=== PATIENT | female | born 2005 | race Caucasian/White ===

== ENCOUNTER 2023-12-24 09:47 | Outpatient (OUT) | payer OTHER, SELFPAY ==
[2023-12-24 10:13] LABS: Basophils Percent Auto 0.7 % (0.2-2.0); Eosinophils Absolute Auto 0.1 10^3/uL (0.0-0.7); Eosinophils Percent Auto 1.4 % (0.9-7.0); Hematocrit 39.9 % (36.0-48.0); Hemoglobin 13.9 g/dL (12.0-16.0); Immature Granulocytes Abs Auto 0.03 10^3/uL (0.00-0.03); Immature Granulocytes Pct Auto 0.5 % (0.0-0.5); Lymphocytes Absolute Auto 1.3 10^3/uL (1.2-3.8); Mean Corpuscular HGB Conc 34.8 g/dL (29.9-35.2); Mean Corpuscular Hemoglobin 30.9 pg (26.7-34.0); Mean Corpuscular Volume 88.7 fL (81.0-99.0); Mean Platelet Volume 10.8 fL (9.5-13.5); Monocytes Absolute Auto 0.7 10^3/uL (0.3-0.8); Monocytes Percent Auto 12.6 % (1.7-12.0); Neutrophils Absolute Auto 3.6 10^3/uL (1.4-6.5); Neutrophils Percent Auto 62.8 % (43.0-75.0); Platelet Count 270 10^3/uL (150-450); Red Cell Distribution Width 11.8 % (11.0-15.0); White Blood Count 5.7 10^3/uL (4.0-11.0)
[2023-12-24 10:38] LABS: Estimated Average Glucose 88 mg/dL; Glycohemoglobin A1C 4.7 % (4.5-6.2)
[2023-12-24 10:53] LABS: Alanine Aminotransferase 22 U/L (14-59); Albumin Globulin Ratio 1.2; Albumin Level 4.1 g/dL (3.4-5.0); Alkaline Phosphatase 102 U/L (46-116); Anion Gap 13.2; Aspartate Amino Transferase 13 U/L (15-37); BUN Creatinine Ratio 12.2; Bilirubin Total 0.5 mg/dL (0.2-1.0); Calcium 9.2 mg/dL (8.5-10.1); Carbon Dioxide 23.9 mmol/L (21.0-32.0); Chloride 103 mmol/L (98-107); Chol HDL Ratio 3.9; Cholesterol 215 mg/dL (104-227); Estimated GFR (African America >60 (>=60); Estimated GFR (Non-African Ame >60 (>=60); Free T3 3.38 pg/mL (2.91-4.70); Globulin 3.5 g/dL; Glucose 84 mg/dL (74-106); HDL Cholesterol 55 mg/dL (29-69); LDL Cholesterol Calculated 134.4 mg/dL; Potassium 4.1 mmol/L (3.5-5.1); Sodium 136 mmol/L (136-145); Thyroid Stimulating Hormone 0.976 uIU/mL (0.516-4.130); Total Protein 7.6 g/dL (6.4-8.2); Triglycerides 128 mg/dL (53-208); VLDL CHOLESTEROL 25.6 mg/dL
[2023-12-25 11:09] LABS: Insulin 17.7 uIU/mL (2.6-24.9)
== END 2023-12-24 09:48 | disposition home or self-care (01) ==
LOC: LAB 09:53
PROVIDERS: PCP Family Medicine; Visit Provider Family Medicine
DX: R06.83 Snoring (principal); R63.5 Abnormal weight gain; E78.5 Hyperlipidemia, unspecified; R53.83 Other fatigue; R73.09 Other abnormal glucose; I10 Essential (primary) hypertension; D64.9 Anemia, unspecified; E03.9 Hypothyroidism, unspecified
CPT/HCPCS: 36415; 80053; 80061; 83036; 83525; 83540; 84436; 84443; 84481; 85025

== ENCOUNTER 2024-04-12 12:00 | Outpatient (OUT) | payer OTHER, SELFPAY ==
--- OUTSIDE RECORDS SUMMARY | 2024-04-13 14:29 | XMS_ITS | CCD ---
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 IPID, T7, TSH, CMP #### [facility] [address] [place] [address] Dr. Charan Patten PROF 14(COMP METB)on 022 Albumin [Mass/Vol] 4.3 g/dL Normal 3.4-5.0 [facility] Comment on above: Performed By: #### L IPID, T7, TSH, CMP #### [facility] [address] [place] [address] Dr. Charan Patten Albumin/Globulin [Mass ratio] 1.1 {ratio} Normal [facility] Comment on above: Performed By: #### L IPID, T7, TSH, CMP #### [facility] [address] [place] [address] Dr. Charan Patten ALP [Catalytic activity/Vol] 74 U/L Normal 65-260 [facility] Comment on above: Performed By: #### L IPID, T7, TSH, CMP #### [facility] [address] [place] [address] Dr. Charan Patten ALT [Catalytic activity/Vol] 36 U/L Normal 14-59 [facility] Comment on above: Performed By: #### L IPID, T7, TSH, CMP #### [facility] [address] [place] [address] Dr. Charan Patten Anion gap [Moles/Vol] 11.9 mmol/L Normal Th e [facility] Comment on above: Performed By: #### L IPID, T7, TSH, CMP #### [facility] [address] [address] [address] Charan Patten AST [Catalytic activity/Vol] 21 U/L Normal 15-37 [facility] Comment on above: Performed By: #### L IPID, T7, TSH, CMP #### [facility] [address] [address] [address] Charan Patten Bilirubin [Mass/Vol] 0.2 mg/dL Normal 0.2-1.0 [facility] Comment on above: Performed By: #### L IPID, T7, TSH, CMP #### [facility] [address] [place] [address] Dr. Charan Patten Calcium [Mass/Vol] 9.0 mg/dL Normal 8.5-10.1 [facility] Comment on above: Performed By: #### L IPID, T7, TSH, CMP #### [facility] [address] [place] [address] Dr. Charan Patten Chloride [Moles/Vol] 104 mmol/L Normal 98-107 [facility] Comment on above: Performed By: #### L IPID, T7, TSH, CMP #### [facility] [address] [place] [address] Dr. Charan Patten CO2 [Moles/Vol] 25.7 mmol/L Normal 21.0-32.0 [facility] Comment on above: Performed By: #### L IPID, T7, TSH, CMP #### [facility] [address] [place] [address] Dr. Charan Patten Creatinine [Mass/Vol] 0.69 mg/dL Normal 0.55-1.02 [facility] Comment on above: Performed By: #### L IPID, T7, TSH, CMP #### [facility] [address] [place] [address] Dr. Charan Patten Globulin (S) [Mass/Vol] 3.8 g/dL Normal [facility] Comment on above: Performed By: #### L IPID, T7, TSH, CMP #### [facility] [address] [address] [address] Charan Patten Glucose [Mass/Vol] 87 mg/dL Normal 74-106 [facility] Comment on above: Performed By: #### L IPID, T7, TSH, CMP #### [facility] [address] [address] [address] Charan Patten Potassium [Moles/Vol] 4.5 mmol/L Normal 3.5-5.1 [facility] Comment on above: Performed By: #### L IPID, T7, TSH, CMP #### [facility] [address] [place] [address] Dr. Charan Patten Protein [Mass/Vol] 8.1 g/dL Normal 6.4-8.2 [facility] Comment on above: Performed By: #### L IPID, T7, TSH, CMP #### [facility] [address] [place] [address] Dr. Charan Patten Sodium [Moles/Vol] 137 mmol/L Normal 136-145 [facility] Comment on above: Performed By: #### L IPID, T7, TSH, CMP #### [facility] [address] [place] [address] Dr. Charan Patten Urea nitrogen [Mass/Vol] 11.0 mg/dL Normal 6.4-19.3 [facility] Comment on above: Performed By: #### L IPID, T7, TSH, CMP #### [facility] [address] [place] [address] Dr. Charan Patten Urea nitrogen/Creatinine [Mass ratio] 15.9 mg/mg Normal [facility] Comment on above: Performed By: #### L IPID, T7, TSH, CMP #### [facility] [address] [place] [address] Dr. Charan Patten TSHon 11-12-2021 TSH 1.581 uIU/mL Normal 0.516-4.130 [facility] Comment on above: Performed By: #### L IPID, T7, TSH, CMP #### [facility] [address] [address] [address] Charan Patten VITAMIN B12on 11-12-2021 Cobalamin (Vitamin B12) [Mass/Vol] 205.0 pg/mL Normal 193.0-986.0 [facility] Comment on above: Performed By: #### L IPID, T7, TSH, CMP #### [facility] [address] [address] [address] Charan Patten VITAMIN D 25 OHon 11-12-2021 VIT D 25-OH 16.5 ng/mL Normal [facility] Comment on above: Performed By: #### L IPID, T7, TSH, CMP #### [facility] [address] [address] [address] Charan Patten VIT D RANGES SEE BELOW Normal [facility] Comment on above: Result Comment: <20 ng/mL Vit D deficient 20 - <30 ng/mL Vit D insufficient 30 - 100 ng/mL Vit D sufficient >100 ng/mL Potential Toxicity Performed By: #### L IPID, T7, TSH, CMP #### [facility] [address] [address] [address] Charan Patten Vital Signs Date Time Vital Sign Value Performing Clinician Faci lity 03-22-2024 11:28-0500 Body temperature 98.4 [degF] Noel Dukes [employer] SUPERVISOR Work Phone: [facility] 03-22-2024 11:28-0500 Diastolic blood pressure 80 mm[Hg] Noel Dukes [employer] SUPERVISOR Work Phone: [facility] 03-22-2024 11:28-0500 Heart rate 110 /min Noel Dukes [employer] SUPER[employer]OR Work Phone: [facility] 03-22-2024 11:28-0500 SaO2% (BldA) [Mass fraction] 98 % Noel Dukes [employer] SUPER[employer]OR Work Phone: [facility] 03-22-2024 11:28-0500 Systolic blood pressure 127 mm[Hg] Noel Dukes [employer] SUPERVISOR Work Phone: [facility] 09-19-2024 14:51-0400 Body height 154.9 cm Vera Sharon RET[employer]NS SUPERVISOR Work Phone: [facility] 02-05-2024 14:51-0400 Body mass index (BMI) [Ratio] 28.34 kg/m2 Vera Sharon RET[employer]NS SUPERVISOR Work Phone: [facility] 02-05-2024 14:51-0400 Body temperature 98.29 [degF] Vera Sharon RETURNS SUPERVISOR Work Phone: [facility] 02-05-2024 14:51-0400 Body weight 68.04 kg Vera Sharon RETURNS SUPERVISOR Work Phone: [facility] 02-05-2024 14:51-0400 Diastolic blood pressure 78 mm[Hg] Vera Sharon RETURNS SUPERVISOR Work Phone: [facility] 02-05-2024 14:51-0400 Heart rate 86 /min Vera Sharon RETURNS SUPERVISOR Work Phone: [facility] 02-05-2024 14:51-0400 SaO2% (BldA) [Mass fraction] 97 % Vera Sharon [employer]NS SUPERVISOR Work Phone: [facility] 02-05-2024 14:51-0400 Systolic blood pressure 121 mm[Hg] Vera Lazarnton C FORENSIC ENGINEER Work Phone: [facility] 08-26-2023 16:20-0400 Body height 154.9 cm Sabina Cadillac C FORENSIC ENGINEER Work Phone: [facility] 08-26-2023 16:20-0400 Body mass index (BMI) [Ratio] 26.45 kg/m2 Sabina Cadillac RETURNS SUPERVISOR Work Phone: [facility] 08-26-2023 16:20-0400 Body temperature 97.59 [degF] Sabina Anh C FORENSIC ENGINEER Work Phone: [facility] 08-26-2023 16:20-0400 Body weight 63.5 kg Sabina Cadillac C FORENSIC ENGINEER Work Phone: [facility] 08-26-2023 16:20-0400 Diastolic blood pressure 85 mm[Hg] Sabina Anh RETURNS SUPERVISOR Work Phone: [facility] 08-26-2023 16:20-0400 Heart rate 112 /min Sabina Anh C FORENSIC ENGINEER Work Phone: [facility] 08-26-2023 16:20-0400 SaO2% (BldA) [Mass fraction] 97 % Sabina Anh RETURNS SUPERVISOR Work Phone: [facility] 08-26-2023 16:20-0400 Systolic blood pressure 126 mm[Hg] Sabina Bardayton rt RETURNS SUPERVISOR Work Phone: [facility] Encounters Encounter Date Encounter Type Care Provider Facility Start: 03-22-2024 End: 03-22-2024 ambulatory PROVIDER NOT IN SYSTEM [facility] Start: 03-22-2024 End: 03-22-2024 Office outpatient visit 15 minutes Noel Dukes RETURNS SUPERVISOR Work Phone: [facility] Comment on above: Acute pharyngitis, u nspecified etiology (Primary Dx); Sore throat Start: 02-05-2024 End: 02-05-2024 Office outpatient visit 15 minutes Vera Llamas RETURNS SUPERVISOR Work Phone: [facility] Comment on above: Wrist injury, right, initial encounter (Primary Dx) Start: 02-05-2024 End: 02-05-2024 ambulatory PROVIDER NOT IN SYSTEM [facility] Start: 12-17-2023 End: 12-17-2023 ambulatory JULIAN HILLMIS Not Available Start: 08-26-2023 End: 08-26-2023 Office outpatient new 20 minutes Sabina Kamara RETURNS SUPERVISOR Work Phone: [facility] Comment on above: Eustachian tube dysf unction, bilateral (Primary Dx) Start: 08-26-2023 End: 08-26-2023 ambulatory SABINA KAMARA [facility] Start: 05-07-2022 End: 05-08-[address] KALANI LOPEZ Facility:[facility] Start: 11-15-2021 Encounter for routin e child health examination without abnormal findings DR KALANI LOPEZ [facility] Start: 11-12-2021 End: 11-13-[address] KALANI LOPEZ Facility:[facility] Start: 11-12-2021 End: 11-13-2021 Encounter for routine child health examination without abnormal findings DR KALANI LOPEZ Facility:[facility] Procedures Date Procedure Procedure Detail Performing Clinician Start: 03-22-2024 Iaadiadoo streptococ cus group a Noel Dukes [facility] Work Phone: Plan of Treatment Date Care Activity Detail Author Start: 01-18-2024 COVID-19 Vaccine () COVID-19 Vaccine () [facility] Start: 01-18-2024 COVID-19 Vaccine ( season) COVID-19 Vaccine () [facility] Start: 01-18-2024 Influenza vaccination [facility] Start: 01-17-2023 COVID-19 Vaccine ( season) COVID-19 Vaccine ( season) [facility] Start: 12-29-2021 Hepatitis C screening Hepatitis C Screening [facility] Start: 12-29-2018 HIV screening HIV Screening [facility] Start: 12-29-2018 Vaccination for human papillomavirus HPV Vaccines (1 - 3-dose series) [facility] Start: 2015 Depression screening using PHQ-9 (Patient Health Questionnaire 9) score [facility] Start: 12-29-2006 History and physical examination, annual for health maintenance Wellness Visit [facility] Start: 2003 Screening for Chlamydia trachomatis Chlamydia Screening [facility] Start: 2003 Tetanus vaccination Tetanus: Every 10yrs [facility] XR Wrist - right 3 Views XR Wris t Right 3+ Views (Standard) Imaging [facility] Wrist injury, right, initial encounter 02/05/2024 3:27 PM EDT [facility] Work Phone: Payers Date Payer Category Payer Unknown [id number] 2003 Unknown [id number] 2003 Unknown [id number] 2003 Unknown [id number] 2003 Unknown [id number] 2003 Unknown [id number] 1969 Unknown [id number] 1959 Unknown [id number] Managed Care PPO (unspecified) [employer] PPO Member Subscriber Plan / Payer (Effective for All Dates) Name: Jaz Saleh Relation to Subscriber: Self Name: Jaz Saleh Payer ID: Not on file Group ID: Not on file Type: Not on file Address: [place] [id number] Unknown MMO [employer] S UPERMED PPO [id number] Effective for all dates [phone] [place], [place] [id number] Social History Date Type Detail Facility Start: 08-26-2023 Tobacco smoking status NHIS Never sm oked tobacco [facility] Start: 08-26-2023 Tobacco use and exposure Smokeless t obacco non-user [facility] Start: 08-26-2023 End: 03-22-2024 Alcohol intake Lifetime non-drinker (finding) [facility] Start: 2003 Sex Assigned At Not on file [facility] Start: 08-26-2023 End: 03-22-2024 Gender identity Not on file [facility] Start: 08-26-2023 End: 03-22-2024 History of Social function [facility] Start: 02-04-2024 Gender identity Identifies as female gender (finding) [facility] Start: 02-04-2024 Sexual orientation Heterosexual (fin jalil) [facility] Clinical Notes 08-26-2023 to 03-22-2024 Noel Dukes CNP - 03/22/2024 11:38 AM Vera Morrow CNP - 02/05/2024 3:36 PM EDTPatient Sabina Ball CNP - 08/26/2023 4:28 PM EDT Note Date & Type Note Facility 03-22-2024 Note PATIENT NAME: Jaz Saleh [facility] [address] [place] [id number] : 2005 DATE OF VISIT: 03/22/2024 SS#: [id number] PROVIDER: Noel Dukes CNP Chief Complaint Patient presents with Sore Throat Sore throat and fatigue, started on Friday (Apr 07). Today is the worst day so far. Pt stated their roommate recently had strep. Has taken dayquil. SUBJECTIVE 18 y.o. female presents Sore Throat (Sore throat and fatigue, started on Friday (Apr 07). Today is the worst day so far. Pt stated their roommate recently had strep. Has taken dayquil. ) Room mate has strep Lives off campus Sore Throat This is a new problem. The current episode started in the past 7 days. The problem has been gradually worsening. Neither side of throat is experiencing more pain than the other. There has been no fever. The pain is at a severity of 4/10. The pain is mild. Associated symptoms include congestion and trouble swallowing. Pertinent negatives include no abdominal pain, coughing, diarrhea, drooling, ear discharge, ear pain, headaches, hoarse voice, plugged ear sensation, neck pain, shortness of breath, stridor, swollen glands or vomiting. She has had exposure to strep. She has had no exposure to mono. MEDICAL ISSUES Past Medical History: Diagnosis Date Anxiety Depression There is no problem list on file for this patient. SOCIAL HISTORY Social History Socioeconomic History Marital status: Single Tobacco Use Smoking status: Never Smokeless tobacco: Never Vaping Use Vaping status: Never Used Substance and Sexual Activity Alcohol use: Never Drug use: Never FAMILY HISTORY Family History Problem Relation Age of Onset No Known Problems Mother No Known Problems Father REVIEW OF SYSTEMS Review of Systems Constitutional: Negative for chills, fatigue and fever. HENT: Positive for congestion, sore throat and trouble swallowing. Negative for drooling, ear discharge, ear pain, hoarse voice and sinus pain. Respiratory: Negative for cough, shortness of breath and stridor. Cardiovascular: Negative for chest pain and palpitations. Gastrointestinal: Negative for abdominal pain, constipation, diarrhea, nausea and vomiting. Musculoskeletal: Negative for arthralgias, myalgias and neck pain. Skin: Negative for rash. Neurological: Negative for dizziness and headaches. Psychiatric/Behavioral: Negative for confusion. MEDICATIONS PRIOR TO VISIT Current Outpatient Medications on File Prior to Visit Medication Sig Dispense Refill desvenlafaxine succinate (PRISTIQ) 50 MG 24 hr tablet Take 1 (one) tablet (50 mg total) by mouth daily . fluticasone propionate (FLONASE) 50 mcg/actuation nasal spray Instill 2 (two) sprays into each nostril daily . 16 g 12 desvenlafaxine succinate (PRISTIQ) 100 MG 24 hr tablet Take 1 (one) tablet (100 mg total) by mouth daily . (Patient not taking: Reported on 03/22/2024 .) No current facility-administered medications on file prior to visit. ALLERGIES/INTOLERANCES No Known Allergies OBJECTIVE BP 127/80 (BP Location: Left arm, Patient Position: Sitting, BP Cuff Size: Adult) Pulse (!) 110 Temp 98.4 degrees F (36.9 degrees C) (Oral) LMP 02/20/2024 (Approximate) SpO2 98% Physical Exam Vitals and nursing note reviewed. Constitutional: Appearance: She is well-developed. HENT: Head: Normocephalic and atraumatic. Right Ear: Tympanic membrane normal. Left Ear: A middle ear effusion is present. Nose: Congestion present. Mouth/Throat: Mouth: Mucous membranes are moist. Pharynx: Oropharynx is clear. Posterior oropharyngeal erythema and postnasal drip present. No pharyngeal swelling, oropharyngeal exudate or uvula swelling. Tonsils: No tonsillar exudate or tonsillar abscesses. 1+ on the right. 1+ on the left. Eyes: Conjunctiva/sclera: Conjunctivae normal. Pupils: Pupils are equal, round, and reactive to light. Cardiovascular: Rate and Rhythm: Regular rhythm. Tachycardia present. Pulses: Normal pulses. Heart sounds: Normal heart sounds. Pulmonary: Effort: Pulmonary effort is normal. Breath sounds: Normal breath sounds. Abdominal: General: Bowel sounds are normal. Palpations: Abdomen is soft. Musculoskeletal: General: Normal range of motion. Cervical back: Normal range of motion. Skin: General: Skin is warm. Capillary Refill: Capillary refill takes less than 2 seconds. Findings: No rash. Neurological: Mental Status: She is alert and oriented to person, place, and time. Psychiatric: Mood and Affect: Mood normal. PROCEDURE Procedures Results Recent Results (from the past week) POC Rapid Strep A Collection Time: 03/22/24 11:52 AM Result Value Ref Range Strep A Screen Negative Negative ASSESSMENT/PLAN (expressed as patient instructions): 1. Acute pharyngitis, unspecified etiology benzocaine-menthoL (Chloraseptic Max) 15-10 mg Lozg dextromethorphan-gua (more content not included)... [facility] 03-22-2024 History of Presen t illness Narrative PATIENT NAME: Jaz Saleh [facility] [address] [id number] : 2005 DATE OF VISIT: 03/22/2024 #: [id number] PROVIDER: Noel Dukes CNP Chief Complaint Patient presents with Sore Throat Sore throat and fatigue, started on Friday (Apr 07). Today is the worst day so far. Pt stated their roommate recently had strep. Has taken dayquil. SUBJECTIVE 18 y.o. female presents Sore Throat (Sore throat and fatigue, started on Friday (Apr 07). Today is the worst day so far. Pt stated their roommate recently had strep. Has taken dayquil. ) Room mate has strep Lives off campus Sore Throat This is a new problem. The current episode started in the past 7 days. The problem has been gradually worsening. Neither side of throat is experiencing more pain than the other. There has been no fever. The pain is at a severity of 4/10. The pain is mild. Associated symptoms include congestion and trouble swallowing. Pertinent negatives include no abdominal pain, coughing, diarrhea, drooling, ear discharge, ear pain, headaches, hoarse voice, plugged ear sensation, neck pain, shortness of breath, stridor, swollen glands or vomiting. She has had exposure to strep. She has had no exposure to mono. MEDICAL ISSUES Past Medical History: Diagnosis Date Anxiety Depression There is no problem list on file for this patient. SOCIAL HISTORY Social History Socioeconomic History Marital status: Single Tobacco Use Smoking status: Never Smokeless tobacco: Never Vaping Use Vaping status: Never Used Substance and Sexual Activity Alcohol use: Never Drug use: Never FAMILY HISTORY Family History Problem Relation Age of Onset No Known Problems Mother No Known Problems Father REVIEW OF SYSTEMS Review of Systems Constitutional: Negative for chills, fatigue and fever. HENT: Positive for congestion, sore throat and trouble swallowing. Negative for drooling, ear discharge, ear pain, hoarse voice and sinus pain. Respiratory: Negative for cough, shortness of breath and stridor. Cardiovascular: Negative for chest pain and palpitations. Gastrointestinal: Negative for abdominal pain, constipation, diarrhea, nausea and vomiting. Musculoskeletal: Negative for arthralgias, myalgias and neck pain. Skin: Negative for rash. Neurological: Negative for dizziness and headaches. Psychiatric/Behavioral: Negative for confusion. MEDICATIONS PRIOR TO VISIT Current Outpatient Medications on File Prior to Visit Medication Sig Dispense Refill desvenlafaxine succinate (PRISTIQ) 50 MG 24 hr tablet Take 1 (one) tablet (50 mg total) by mouth daily . fluticasone propionate (FLONASE) 50 mcg/actuation nasal spray Instill 2 (two) sprays into each nostril daily . 16 g 12 desvenlafaxine succinate (PRISTIQ) 100 MG 24 hr tablet Take 1 (one) tablet (100 mg total) by mouth daily . (Patient not taking: Reported on 03/22/2024 .) No current facility-administered medications on file prior to visit. ALLERGIES/INTOLERANCES No Known Allergies OBJECTIVE BP 127/80 (BP Location: Left arm, Patient Position: Sitting, BP Cuff Size: Adult) Pulse (!) 110 Temp 98.4 F (36.9 C) (Oral) LMP 02/20/2024 (Approximate) SpO2 98% Physical Exam Vitals and nursing note reviewed. Constitutional: Appearance: She is well-developed. HENT: Head: Normocephalic and atraumatic. Right Ear: Tympanic membrane normal. Left Ear: A middle ear effusion is present. Nose: Congestion present. Mouth/Throat: Mouth: Mucous membranes are moist. Pharynx: Oropharynx is clear. Posterior oropharyngeal erythema and postnasal drip present. No pharyngeal swelling, oropharyngeal exudate or uvula swelling. Tonsils: No tonsillar exudate or tonsillar abscesses. 1+ on the right. 1+ on the left. Eyes: Conjunctiva/sclera: Conjunctivae normal. Pupils: Pupils are equal, round, and reactive to light. Cardiovascular: Rate and Rhythm: Regular rhythm. Tachycardia present. Pulses: Normal pulses. Heart sounds: Normal heart sounds. Pulmonary: Effort: Pulmonary effort is normal. Breath sounds: Normal breath sounds. Abdominal: General: Bowel sounds are normal. Palpations: Abdomen is soft. Musculoskeletal: General: Normal range of motion. Cervical back: Normal range of motion. Skin: General: Skin is warm. Capillary Refill: Capillary refill takes less than 2 seconds. Findings: No rash. Neurological: Mental Status: She is alert and oriented to person, place, and time. Psychiatric: Mood and Affect: Mood normal. PROCEDURE Procedures Results Recent Results (from the past week) POC Rapid Strep A Collection Time: 03/22/24 11:52 AM Result Value Ref Range Strep A Screen Negative Negative ASSESSMENT/PLAN (expressed as patient instructions): 1. Acute pharyngitis, unspecified etiology benzocaine-menthoL (Chloraseptic Max) 15-10 mg Lozg dextromethorphan-guaiFENesin 60-1,200 mg per 12 hr tablet 2. Sore throat POC Rapid Strep A Return if symptoms worsen or fail to improve. MDM Section Declined flu/covid testing Negative strep Suspect PND as cause of ST Educated on warm salt water gargles, humidifier at bedside, warm fluids RTC criteria and red flag symptoms reviewed, voiced understanding ORDERS PLACED THIS VISIT Orders Placed This Encounter Procedures POC Rapid Strep A MEDICATION LIST AT END OF VISIT Current Outpatient Medications Medication Sig Dispense Refill desvenlafaxine succinate (PRISTIQ) 50 MG 24 hr tablet Take 1 (one) tablet (50 mg total) by mouth daily . fluticasone propionate (FLONASE) 50 mcg/actuation nasal spray Instill 2 (two) sprays into each nostril daily . 16 g 12 benzocaine-menthoL (Chloraseptic Max) 15-10 mg Lozg 1 lozenge by Mucous Membrane route 4 (four) times a day as needed . 28 lozenge 0 desvenlafaxine succinate (PRISTIQ) 100 MG 24 hr tablet Take 1 (one) tablet (100 mg total) by mouth daily . (Patient not taking: Reported on 03/22/2024 .) dextromethorphan-guaiFENesin 60-1,200 mg per 12 hr tablet Take 1 (one) tablet by mouth every 12 (twelve) hours for 10 days . 20 tablet 0 No current facility-administered medications for this visit. documented in this encounter [facility] 02-05-2024 Note Subjective: Patient ID: Jaz Saleh is a 18 y.o. female. Chief Complaint: Wrist Injury Pertinent negatives include no numbness. Past Medical History: Diagnosis Date Anxiety Depression History reviewed. No pertinent surgical history. Family History Problem Relation Age of Onset No Known Problems Mother No Known Problems Father Review of Systems Musculoskeletal: Positive for arthralgias. Skin: Negative for color change and wound. Neurological: Negative for numbness. Hematological: Does not bruise/bleed easily. Objective: BP 121/78 (BP Location: Right arm, Patient Position: Sitting, BP Cuff Size: Adult) Pulse 86 Temp 98.3 degrees F (36.8 degrees C) (Infrared) Ht 5' 1 Wt 68 kg (150 lb) SpO2 97% BMI 28.34 kg/m Physical Exam Vitals and nursing note reviewed. Constitutional: General: She is not in acute distress. Appearance: Normal appearance. She is not ill-appearing, toxic-appearing or diaphoretic. Cardiovascular: Rate and Rhythm: Normal rate. Pulses: Normal pulses. Musculoskeletal: General: No swelling, tenderness or signs of injury. Normal range of motion. Comments: C/o lateral wrist pain. Area is not sore to palpation Skin: Capillary Refill: Capillary refill takes less than 2 seconds. Findings: No bruising or wound. Neurological: General: No focal deficit present. Mental Status: She is alert. Assessment: Diagnoses and all orders for this visit: Wrist injury, right, initial encounter - XR Wrist Right 3+ Views (Standard); Future Plan: Preliminary xray results discussed with patient Patient declined need for prescription analgesic Patient will be called with final xray results within 24 hours. If xray confirms suspected fracture, patient will be referred to orthopedics. RICE supportive care discussed Patient has rigid brace on now Patient voiced understanding of plan with no questions. AUTHENTICATED BY VERA LLAMAS ON 02/05/2024 15:38:22 [facility] 02-05-2024 History of Presen t illness Narrative Subjective: Patient ID: Jaz Saleh is a 18 y.o. female. Chief Complaint: Wrist Injury Pertinent negatives include no numbness. Past Medical History: Diagnosis Date Anxiety Depression History reviewed. No pertinent surgical history. Family History Problem Relation Age of Onset No Known Problems Mother No Known Problems Father Review of Systems Musculoskeletal: Positive for arthralgias. Skin: Negative for color change and wound. Neurological: Negative for numbness. Hematological: Does not bruise/bleed easily. Objective: BP 121/78 (BP Location: Right arm, Patient Position: Sitting, BP Cuff Size: Adult) Pulse 86 Temp 98.3 F (36.8 C) (Infrared) Ht 5' 1 Wt 68 kg (150 lb) SpO2 97% BMI 28.34 kg/m Physical Exam Vitals and nursing note reviewed. Constitutional: General: She is not in acute distress. Appearance: Normal appearance. She is not ill-appearing, toxic-appearing or diaphoretic. Cardiovascular: Rate and Rhythm: Normal rate. Pulses: Normal pulses. Musculoskeletal: General: No swelling, tenderness or signs of injury. Normal range of motion. Comments: C/o lateral wrist pain. Area is not sore to palpation Skin: Capillary Refill: Capillary refill takes less than 2 seconds. Findings: No bruising or wound. Neurological: General: No focal deficit present. Mental Status: She is alert. Assessment: Diagnoses and all orders for this visit: Wrist injury, right, initial encounter - XR Wrist Right 3+ Views (Standard); Future Plan: Preliminary xray results discussed with patient Patient declined need for prescription analgesic Patient will be called with final xray results within 24 hours. If xray confirms suspected fracture, patient will be referred to orthopedics. RICE supportive care discussed Patient has rigid brace on now Patient voiced understanding of plan with no questions. documented in this encounter [facility] 02-05-2024 Instructions Vera Llamas CNP - 02/05/2024 3:30 PM EDT Images from the original note were not included. Preliminary xray interpretation shows no bone abnormalities. Likely sprain which can be sore for 4-6 weeks You will receive a final xray interpretation via [facility] within 24 hours If xray confirms broken bone, the orthopedics office will call you within 1-2 days to schedule a follow up visit. Rest: Don't use the injured body part for the next 3 days in order to protect it from further damage. Ice: Apply an ice pack a few times a day for 10 to 20 minutes at a time to reduce pain and swelling. Do this for the first two to three days. Place a towel or cloth between your skin and the ice pack to avoid damaging your skin with the ice. Spuz-foh-dwwpvjo medication: Take an anti-inflammatory medication like ibuprofen (Motrin, Advil, and Aleve) or a pain reliever like acetaminophen (Tylenol). Continue bracing during your day for the next week Over the counter biofreeze can be used to help with discomfort documented in this encounter [facility] 08-26-2023 History of Presen t illness Narrative PATIENT NAME: Jaz Saleh [facility] [address] [place] [id number] : 2005 DATE OF VISIT: 08/26/2023 #: [id number] PROVIDER: Sabina Kamara CNP Chief Complaint Patient presents with Ear Fullness Pt c/o hard of hearing in her left ear since 08/23. Notes it feels like a lot of pressure. SUBJECTIVE 17 y.o. female presents Ear Fullness (Pt c/o hard of hearing in her left ear since 08/23. Notes it feels like a lot of pressure.) Started Friday couldn't hear out of left ear No pain just pressure No previous ear probs Ear Fullness There is pain in the left ear. This is a new problem. The current episode started in the past 7 days. The problem occurs constantly. The problem has been gradually worsening. There has been no fever. The pain is at a severity of 0/10. The patient is experiencing no pain. Associated symptoms include hearing loss. Pertinent negatives include no abdominal pain, coughing, diarrhea, ear discharge, headaches, neck pain, rash, rhinorrhea, sore throat or vomiting. She has tried nothing for the symptoms. There is no history of a chronic ear infection or a tympanostomy tube. MEDICAL ISSUES Past Medical History: Diagnosis Date Anxiety Depression There is no problem list on file for this patient. SOCIAL HISTORY Social History Socioeconomic History Marital status: Single Tobacco Use Smoking status: Never Smokeless tobacco: Never Vaping Use Vaping Use: Never used Substance and Sexual Activity Alcohol use: Never Drug use: Never FAMILY HISTORY Family History Problem Relation Age of Onset No Known Problems Mother No Known Problems Father REVIEW OF SYSTEMS Review of Systems Constitutional: Negative for activity change, appetite change, chills, diaphoresis, fatigue and unexpected weight change. HENT: Positive for hearing loss. Negative for congestion, ear discharge, rhinorrhea and sore throat. Respiratory: Negative for cough. Gastrointestinal: Negative for abdominal pain, diarrhea, nausea and vomiting. Musculoskeletal: Negative for neck pain and neck stiffness. Skin: Negative for rash. Neurological: Negative for headaches. All other systems reviewed and are negative. MEDICATIONS PRIOR TO VISIT Current Outpatient Medications on File Prior to Visit Medication Sig Dispense Refill desvenlafaxine succinate (PRISTIQ) 100 MG 24 hr tablet Take 1 (one) tablet (100 mg total) by mouth daily . desvenlafaxine succinate (PRISTIQ) 50 MG 24 hr tablet Take 1 (one) tablet (50 mg total) by mouth daily . No current facility-administered medications on file prior to visit. ALLERGIES/INTOLERANCES No Known Allergies OBJECTIVE BP 126/85 (BP Location: Left arm, Patient Position: Sitting, BP Cuff Size: Adult) Pulse (!) 112 Temp 97.6 F (36.4 C) (Infrared) Ht 5' 1 Wt 63.5 kg (140 lb) LMP 08/20/2023 SpO2 97% BMI 26.45 kg/m Physical Exam Vitals and nursing note reviewed. Constitutional: General: She is not in acute distress. Appearance: Normal appearance. She is not ill-appearing or toxic-appearing. HENT: Head: Normocephalic and atraumatic. Right Ear: Hearing, ear canal and external ear normal. Tympanic membrane is bulging. Tympanic membrane has decreased mobility. Left Ear: Ear canal and external ear normal. Decreased hearing noted. Tympanic membrane is erythematous and bulging. Tympanic membrane has decreased mobility. Nose: Nose normal. Mouth/Throat: Mouth: Mucous membranes are moist. Eyes: General: No scleral icterus. Right eye: No discharge. Left eye: No discharge. Conjunctiva/sclera: Conjunctivae normal. Pupils: Pupils are equal, round, and reactive to light. Cardiovascular: Heart sounds: Normal heart sounds. Pulmonary: Effort: Pulmonary effort is normal. Breath sounds: Normal breath sounds. Musculoskeletal: Cervical back: Normal range of motion and neck supple. No rigidity or tenderness. Lymphadenopathy: Cervical: No cervical adenopathy. Skin: General: Skin is warm and dry. Neurological: General: No focal deficit present. Mental Status: She is alert and oriented to person, place, and time. Psychiatric: Mood and Affect: Mood normal. Behavior: Behavior normal. PROCEDURE Procedures Results No results found for this or any previous visit (from the past 168 hour(s)). ASSESSMENT/PLAN (expressed as patient instructions): 1. Eustachian tube dysfunction, bilateral Return if symptoms worsen or fail to improve. MDM Section ORDERS PLACED THIS VISIT No orders of the defined types were placed in this encounter. MEDICATION LIST AT END OF VISIT Current Outpatient Medications Medication Sig Dispense Refill desvenlafaxine succinate (PRISTIQ) 100 MG 24 hr tablet Take 1 (one) tablet (100 mg total) by mouth daily . amoxicillin (AMOXIL) 875 MG tablet Take 1 (one) tablet (875 mg total) by mouth 2 (two) times a day for 7 days . 14 tablet 0 desvenlafaxine succinate (PRISTIQ) 50 MG 24 hr tablet Take 1 (one) tablet (50 mg total) by mouth daily . fluticasone propionate (FLONASE) 50 mcg/actuation nasal spray Instill 2 (two) sprays into each nostril daily . 16 g 12 pseudoePHEDrine (SUDAFED) 120 mg 12 hr tablet Take 1 (one) tablet (120 mg total) by mouth every 12 (twelve) hours for 10 days . 20 tablet 0 No current facility-administered medications for this visit. documented in this encounter [facility] Evaluation note Diagnosis Eustachian [facility] dysfunction, bilateral- [facility] Wrist [facility], right, initial encounter- [facility] Diagnosis Acute pharyngitis, unspecified etiology- Primary Sore throat Acute ph[facility]itis [facility] Attachments The following attachments cannot be sent through Care Everywhere. * Eustachian Tube Problems (Hebrew) [facility]* Attachments The following attachments cannot be sent through Care Everywhere. * Sore Throat (Hebrew) [facility] Purpose Family History No Family History Records FoundNo Family History Records FoundNo Family History Records Found Advance Directives No Advanced Directives Records FoundNo Advanced Directives Records FoundNo Advanced Directives Records Found Additional Source Comments INFORMATION SOURCE (unrecogn ized section and content) DATE CREATED AUTHOR 05/15/[address] [facility] DATE CREATED AUTHOR AUTHOR'S ORGANIZ ATION 12/19/2023 [facility] EPIC DATE CREATED AUTHOR AUTHOR'S ORGANIZ ATION 03/23/2024 [facility] Reason for Visit (unrecogniz ed section and content) Reason Comments Ear Fullness Pt c/o hard of heari ng in her left ear since 08/23. Notes it feels like a lot of pressure. Reason Comments Wrist Injury Pt complains of righ t wrist injury about 2 weeks ago-fell off her scooter and when she fell it twisted. Notes she twisted it again yesterday. Notes she has been wearing brace in between the falls and currently wearing it. Has used ice. Able to move it but with excess movement the pain comes back-describes pain as when you hit your funny bone Reason Comments Sore Throat Sore throat and fati yenifer, started on Friday (Apr 07). Today is the worst day so far. Pt stated their roommate recently had strep. Has taken dayquil. Care Teams (unrecognized sec tion and content) Inside Sales Supervisor Relationship Specialty Start Date End Date System, Provider Not In PCP - General 08/26/23 Inside Sales Supervisor Relationship Specialty Start Date End Date System, Provider Not In PCP - General 08/26/23 FOR RECORDS PERTAINING TO PATIENTS WHO ARE OR HAVE BEEN ENROLLED IN A CHEMICAL DEPENDENCY/SUBSTANCEABUSE PROGRAM, SOME INFORMATION MAY BE OMITTED. This clinical summary was aggregated from multiple sources. Caution should be exercised in using it in the provision of clinical care. This summary normalizes information from multiple sources, and as a consequence, information in this document may materially change the coding, format and clinical context of patient data. In addition, data may be omitted in some cases. CLINICAL DECISIONS SHOULD BE BASED ON THE PRIMARY CLINICAL RECORDS. [email or web address] provides no warranty or guarantee of the accuracy or completeness of information in this document.
== END 2024-04-12 12:01 | disposition home or self-care (01) ==
LOC: SLEEP 04-13 14:04
PROVIDERS: PCP Family Medicine; Visit Provider Family Medicine
DX: G47.33 Obstructive sleep apnea (adult) (pediatric) (principal)
CPT/HCPCS: 95806

== ENCOUNTER 2024-04-17 09:48 | Outpatient (OUT) | payer OTHER, SELFPAY ==
--- NOTE | 2024-04-17 09:50 | US_ITS ---
[address] [address] Patient Name: FRANK ARMSTRONG MRN: [id number] date: 2005 Sex: F Assigned Patient Location: Current Patient Location: Accession/Order Number: [id number] Exam Date: 04/17/2024 10:00 Report Date: 04/18/2024 06:21 At the request of: KALANI LOPEZ Procedure: US pelvis EXAMINATION: US pelvis HISTORY: Dysfunctional uterine bleeding N93.8 COMPARISON: No relevant comparison available. TECHNIQUE: Transabdominal and/or transvaginal sonographic examination was performed as indicated by examination type. FINDINGS: UTERUS: Normal size and appearance. Uterus size: 6.9 x 4.4 x 2.6 cm ENDOMETRIUM: Normal homogeneous appearance. Endometrial thickness: 8 mm RIGHT OVARY: Not seen. LEFT OVARY: Normal size and appearance. Duplex Doppler demonstrates normal waveform and flow; resistive index 0.6. Ovary size: 2.5 x 1.7 x 1.8 cm CUL-DE-SAC: Unremarkable. No significant free fluid. BLADDER: Unremarkable. OTHER: None. US/US pelvis IMPRESSION: 1. No abnormal or suspicious findings. 2. Right ovary could not be identified. No suspicious adnexal findings. Electronically authenticated by: MAGALI ARNDT Date: 04/18/2024 06:21
--- OUTSIDE RECORDS SUMMARY | 2024-04-17 09:51 | XMS_ITS | CCD ---
Author Organization [facility] Care Team Providers Care Set Illustrator Name Role Phone JOHN, DR URIARTE Admitting [...] extended release oral tablet (1 source) Uncompetitive G-agyvem-D-aspartate Receptor Antagonist, Sigma-1 Agonist Start: 03-22-2024 End: [...] Interpretation and review of laboratory results Normal [facility] S. pyogenes Ag Ql (Throat) Negative Negative [facility] XR WRIST RIGHT 3+ VIEWS (STA NDARD)on [...] noted. IMPRESSION: No acute osseous abnormality noted. SKS/Diffon Workstation ID: [id number] Dictated by: ABELINO ZABALA on FriFeb 05, 2024 5:13:59 PM EDT Transcribed by: BRANDI STATON on FriFeb 05, 2024 5:23:34 PM EDT Finalized by: ABELINO ZABALA on FriFeb 06, 2024 6:30:36 AM EDT [facility] Comment on above: Order Comment: [...] 05-08-2022 Insulin 13.7 uIU/mL Normal 2.6-24.9 [facility] Comment on above: Performed By: #### I NSULIN #### [facility] [address] [place] [address] Dr. Charan Patten CBC AUTO DIFFon 05-07-2022 BASO # 0.0 103/ul Normal 0.0-0.1 [facility] Comment on above: Performed By: #### C BC #### [facility] [address] [place] [address] Dr. Charan Patten Basophils/100 WBC (Bld) 0.7 % Normal 0.2-2.0 [facility] Comment on above: Performed By: #### C BC #### [facility] [address] [place] [address] Dr. Charan Patten EO # 0.1 103/ul Normal 0.0-0.7 [facility] Comment on above: Performed By: #### C BC #### [facility] [address] [place] [address] Dr. Charan Patten Eosinophils/100 WBC (Bld) 1.7 % Normal 0.9-7.0 [facility] Comment on above: Performed By: #### C BC #### [facility] [address] [place] [address] Dr. Charan Patten Erythrocyte distribution width (RBC) [Ratio] 13.1 % Normal 11.0-15.0 [facility] Comment on above: Performed By: #### C BC #### [facility] [address] [place] [address] Dr. Charan Patten Hematocrit (Bld) [Volume fraction] 39.7 % Normal 36.0-48.0 [facility] Comment on above: Performed By: #### C BC #### [facility] [address] [place] [address] Dr. Charan Patten Hemoglobin (Bld) [Mass/Vol] 13.3 g/dL Normal 12.0-16.0 [facility] Comment on above: Performed By: #### C BC #### [facility] [address] [place] [address] Dr. Charan Patten IG # 0.02 10e3/ul Normal 0.00-0.03 [facility] Comment on above: Performed By: #### C BC #### [facility] [address] [place] [address] Dr. Charan Patten IG % 0.3 % Normal 0.0-0.5 [facility] Comment on above: Performed By: #### C BC #### [facility] [address] [place] [address] Dr. Charan Patten LYMPH # 1.8 103/ul Normal 1.2-3.8 [facility] Comment on above: Performed By: #### C BC #### [facility] [address] [place] [address] Dr. Charan Patten Lymphocytes/100 WBC (Bld) 30.0 % Normal 20.5-60.0 [facility] Comment on above: Performed By: #### C BC #### [facility] [address] [place] [address] Dr. Charan Patten MANUAL DIFF REQ NO Normal [facility] Comment on above: Performed By: #### C BC #### [facility] [address] [place] [address] Dr. Charan Patten MCH (RBC) [Entitic mass] 29.2 pg Normal 26.7-34.0 [facility] Comment on above: Performed By: #### C BC #### [facility] [address] [place] [address] Dr. Charan Patten MCHC (RBC) [Mass/Vol] 33.5 g/dL Normal 29.9-35.2 [facility] Comment on above: Performed By: #### C BC #### [facility] [address] [place] [address] Dr. Charan Patten MCV (RBC) [Entitic vol] 87.1 fL Normal 81.0-99.0 [facility] Comment on above: Performed By: #### C BC #### [facility] [address] [place] [address] Dr. Charan Patten MONO # 0.6 103/ul Normal 0.3-0.8 [facility] Comment on above: Performed By: #### C BC #### [facility] [address] [place] [address] Dr. Charan Patten Monocytes/100 WBC (Bld) 9.8 % Normal 1.7-12.0 [facility] Comment on above: Performed By: #### C BC #### [facility] [address] [place] [address] Dr. Charan Patten NEUT # 3.4 103/ul Normal 1.4-6.5 [facility] Comment on above: Performed By: #### C BC #### [facility] [address] [place] [address] Dr. Charan Patten Neutrophils/100 WBC (Bld) 57.5 % Normal 43.0-75.0 [facility] Comment on above: Performed By: #### C BC #### [facility] [address] [place] [address] Dr. Charan Patten Platelet mean volume (Bld) [Entitic vol] 10.4 fL Normal 9.5-13.5 [facility] Comment on above: Performed By: #### C BC #### [facility] [address] [place] [address] Dr. Charan Patten PLT 268 103/ul Normal 150-450 [facility] Comment on above: Performed By: #### C BC #### [facility] [address] [place] [address] Dr. Charan Patten RBC 4.56 106/ul Normal 4.20-5.40 [facility] Comment on above: Performed By: #### C BC #### [facility] [address] [place] [address] Dr. Charan Patten WBC 5.9 103/ul Normal 4.0-11.0 [facility] Comment on above: Performed By: #### C BC #### [facility] [address] [place] [address] Dr. Charan Patten FREE THYROXINE INDEX T7on FTI 2.11 Normal 1.30-4.50 [facility] Comment on above: Performed By: #### L IPID, T7, TSH, CMP #### [facility] [address] [place] [address] Dr. Charan Patten T3U 32.0 % Normal 30.0-39.0 [facility] Comment on above: Performed By: #### L IPID, T7, TSH, CMP #### [facility] [address] [address] [address] Charan Patten T4 [Mass/Vol] 6.60 ug/dL Normal 5.40-10.60 [facility] Comment on above: Performed By: #### L IPID, T7, TSH, CMP #### [facility] [address] [address] [address] Charan Patten GLYCOHEMOGLOBIN A1Con 2021 ADA RECOMMENDATION SEE BELOW Normal [facility] Comment on above: Result Comment: ADA RECOMMENDED LIMIT 4.0 - 6.0 ADA THERAPEUTIC TARGET < 7.0 ACTION SUGGESTED > 7.0 Performed By: #### A 1C #### [facility] [address] [place] [address] Dr. Charan Patten Glucose [Mass/Vol] 94 mg/dL Normal [facility] Comment on above: Performed By: #### A 1C #### [facility] [address] [place] [address] Dr. Charan Patten HbA1c (Bld) [Mass fraction] 4.9 % Normal 4.5-6.2 [facility] Comment on above: Performed By: #### A 1C #### [facility] [address] [place] [address] Dr. Charan Patten IRONon 05-07-2022 Iron [Mass/Vol] 140.0 ug/dL Normal 50.0-170.0 [facility] Comment on above: Performed By: #### L IPID, T7, TSH, CMP #### [facility] [address] [place] [address] Dr. Charan Patten LIPID PROFILEon 05-07-2022 CHOL-HDL RATIO NORM SEE BELOW Normal [facility] Comment on above: Result Comment: 3.3 - 4.4 LOW RISK 4.4 - 7.1 AVERAGE RISK 7.1 - 11.0 MODERATE RISK >11.0 HIGH RISK Performed By: #### L IPID, T7, TSH, CMP #### [facility] [address] [place] [address] Dr. Charan Patten Cholesterol [Mass/Vol] 176 mg/dL Normal 104-227 [facility] Comment on above: Performed By: #### L IPID, T7, TSH, CMP #### [facility] [address] [address] [address] Charan Patten Cholesterol in HDL [Mass/Vol] 70 mg/dL Critically high 29-69 [facility] Comment on above: Performed By: #### L IPID, T7, TSH, CMP #### [facility] [address] [address] [address] Charan Patten Cholesterol in LDL [Mass/Vol] 88.2 mg/dL Normal 46.0-140.0 [facility] Comment on above: Performed By: #### L IPID, T7, TSH, CMP #### [facility] [address] [address] [address] Charan Patten Cholesterol.total/Cho lesterol in HDL [Mass ratio] 2.5 {ratio} Normal [facility] Comment on above: Performed By: #### L IPID, T7, TSH, CMP #### [facility] [address] [address] [address] Charan Patten HDL NORMAL > or = 60 mg/dl - LOW CARDIOVASCULAR RISK <40 mg/dl - HIGH CARDIOVASCULAR RISK Normal [facility] Comment on above: Performed By: #### L IPID, T7, TSH, CMP #### [facility] [address] [address] [address] Charan Patten LDL CALC NORMAL SEE BELOW Normal [facility] Comment on above: Result Comment: <100 mg/dl OPTIMAL 100 - 129 mg/dl NEAR OR ABOVE OPTIMAL 130 - 159 mg/dl BORDERLINE HIGH 160 - 189 mg/dl HIGH >190 mg/dl VERY HIGH Performed By: #### L IPID, T7, TSH, CMP #### [facility] [address] [address] [address] Charan Patten Triglyceride [Mass/Vol] 89 mg/dL Normal 53-208 [facility] Comment on above: Performed By: #### L IPID, T7, TSH, CMP #### [facility] [address] [address] [address] Charan Patten VLDL CALC 17.8 mg/dL Normal [facility] Comment on above: Performed By: #### L IPID, T7, TSH, CMP #### [facility] [address] [address] [address] Charan Patten OCC BLD IMMUNO SCREENon 04-19 OCCULT BLOOD Negative Normal NEGATIVE [facility] Comment on above: Performed By: #### O BSCRN #### [facility] [address] [address] [address] Charan Patten PROF 14(COMP METB)on 022 Albumin [Mass/Vol] 4.5 g/dL Normal 3.4-5.0 [facility] Comment on above: Performed By: #### L IPID, T7, TSH, CMP #### [facility] [address] [place] [address] Dr. Charan Patten Albumin/Globulin [Mass ratio] 1.3 {ratio} Normal [facility] Comment on above: Performed By: #### L IPID, T7, TSH, CMP #### [facility] [address] [address] [address] Charan Patten ALP [Catalytic activity/Vol] 74 U/L Normal 46-116 [facility] Comment on above: Performed By: #### L IPID, T7, TSH, CMP #### [facility] [address] [address] [address] Charan Patten ALT [Catalytic activity/Vol] 39 U/L Normal 14-59 [facility] Comment on above: Performed By: #### L IPID, T7, TSH, CMP #### [facility] [address] [address] [address] Charan Patten Anion gap [Moles/Vol] 14.4 mmol/L Normal [facility] Comment on above: Performed By: #### L IPID, T7, TSH, CMP #### [facility] [address] [address] [address] Charan Patten AST [Catalytic activity/Vol] 30 U/L Normal 15-37 [facility] Comment on above: Performed By: #### L IPID, T7, TSH, CMP #### [facility] [address] [address] [address] Charan Patten Bilirubin [Mass/Vol] 0.5 mg/dL Normal 0.2-1.0 [facility] Comment on above: Performed By: #### L IPID, T7, TSH, CMP #### [facility] [address] [place] [address] Dr. Charan Patten Calcium [Mass/Vol] 9.1 mg/dL Normal 8.5-10.1 [facility] Comment on above: Performed By: #### L IPID, T7, TSH, CMP #### [facility] [address] [place] [address] Dr. Charan Patten Chloride [Moles/Vol] 102 mmol/L Normal 98-107 [facility] Comment on above: Performed By: #### L IPID, T7, TSH, CMP #### [facility] [address] [place] [address] Dr. Charan Patten CO2 [Moles/Vol] 23.8 mmol/L Normal 21.0-32.0 [facility] Comment on above: Performed By: #### L IPID, T7, TSH, CMP #### [facility] [address] [place] [address] Dr. Charan Patten Creatinine [Mass/Vol] 0.73 mg/dL Normal 0.55-1.02 [facility] Comment on above: Performed By: #### L IPID, T7, TSH, CMP #### [facility] [address] [place] [address] Dr. Charan Patten EGFR-AF BRITISH >60 Normal >=60 [facility] Comment on above: Performed By: #### L IPID, T7, TSH, CMP #### [facility] [address] [place] [address] Dr. Charan Patten EGFR-NON AF BRITISH >60 Normal >=60 [facility] Comment on above: Performed By: #### L IPID, T7, TSH, CMP #### [facility] [address] [address] [address] Charan Patten Globulin (S) [Mass/Vol] 3.4 g/dL Normal [facility] Comment on above: Performed By: #### L IPID, T7, TSH, CMP #### [facility] [address] [address] [address] Charan Patten Glucose [Mass/Vol] 90 mg/dL Normal 74-106 [facility] Comment on above: Performed By: #### L IPID, T7, TSH, CMP #### [facility] [address] [address] [address] Charan Patten Potassium [Moles/Vol] 4.2 mmol/L Normal 3.5-5.1 [facility] Comment on above: Performed By: #### L IPID, T7, TSH, CMP #### [facility] [address] [place] [address] Dr. Charan Patten Protein [Mass/Vol] 7.9 g/dL Normal 6.4-8.2 [facility] Comment on above: Performed By: #### L IPID, T7, TSH, CMP #### [facility] [address] [address] [address] Charan Patten Sodium [Moles/Vol] 136 mmol/L Normal 136-145 [facility] Comment on above: Performed By: #### L IPID, T7, TSH, CMP #### [facility] [address] [address] [address] Charan Patten Urea nitrogen [Mass/Vol] 10.0 mg/dL Normal 6.4-19.3 [facility] Comment on above: Performed By: #### L IPID, T7, TSH, CMP #### [facility] [address] [place] [address] Dr. Charan Patten Urea nitrogen/Creatinine [Mass ratio] 13.7 mg/mg Normal [facility] Comment on above: Performed By: #### L IPID, T7, TSH, CMP #### [facility] [address] [address] [address] Charan Patten TSHon 05-07-2022 TSH 1.580 uIU/mL Normal 0.516-4.130 [facility] Comment on above: Performed By: #### L IPID, T7, TSH, CMP #### [facility] [address] [place] [address] Dr. Charan Patten VITAMIN D 25 OHon 05-07-2022 VIT D 25-OH 14.3 ng/mL Normal [facility] Comment on above: Performed By: #### L IPID, T7, TSH, CMP #### [facility] [address] [place] [address] Dr. Charan Patten VIT D RANGES SEE BELOW Normal [facility] Comment on above: Result Comment: <20 ng/mL Vit D deficient 20 - <30 ng/mL Vit D insufficient 30 - 100 ng/mL Vit D sufficient >100 ng/mL Potential Toxicity Performed By: #### L IPID, T7, TSH, CMP #### [facility] [address] [place] [address] Dr. Charan Patten INSULINon 11-13-2021 Insulin 35.5 uIU/mL Critically high 2.6-24.9 [facility] Comment on above: Performed By: #### L IPID, T7, TSH, CMP #### [facility] [address] [place] [address] Dr. Charan Patten CBC AUTO DIFFon 11-12-2021 BASO # 0.1 103/ul Normal 0.0-0.1 [facility] Comment on above: Performed By: #### C BC #### [facility] [address] [place] [address] Dr. Charan Patten Basophils/100 WBC (Bld) 0.9 % Normal 0.2-2.0 [facility] Comment on above: Performed By: #### C BC #### [facility] [address] [place] [address] Dr. Charan Patten EO # 0.0 103/ul Normal 0.0-0.7 [facility] Comment on above: Performed By: #### C BC #### [facility] [address] [place] [address] Dr. Charan Patten Eosinophils/100 WBC (Bld) 0.4 % Critically low 0.9-7.0 [facility] Comment on above: Performed By: #### C BC #### [facility] [address] [place] [address] Dr. Charan Patten Erythrocyte distribution width (RBC) [Ratio] 14.8 % Normal 11.0-15.0 [facility] Comment on above: Performed By: #### C BC #### [facility] [address] [place] [address] Dr. Charan Patten Hematocrit (Bld) [Volume fraction] 39.1 % Normal 36.0-48.0 [facility] Comment on above: Performed By: #### C BC #### [facility] [address] [place] [address] Dr. Charan Patten Hemoglobin (Bld) [Mass/Vol] 12.6 g/dL Normal 12.0-16.0 [facility] Comment on above: Performed By: #### C BC #### [facility] [address] [place] [address] Dr. Charan Patten IG # 0.08 10e3/ul Critically high 0.00-0.[address] [facility] Comment on above: Performed By: #### C BC #### [facility] [address] [place] [address] Dr. Charan Patten IG % 1.5 % Critically high 0.0-0.5 [facility] Comment on above: Performed By: #### C BC #### [facility] [address] [place] [address] Dr. Charan Patten LYMPH # 1.3 103/ul Normal 1.2-3.8 [facility] Comment on above: Performed By: #### C BC #### [facility] [address] [place] [address] Dr. Charan Patten Lymphocytes/100 WBC (Bld) 25.1 % Normal 20.5-60.0 [facility] Comment on above: Performed By: #### C BC #### [facility] [address] [place] [address] Dr. Charan Patten MANUAL DIFF REQ NO Normal [facility] Comment on above: Performed By: #### C BC #### [facility] [address] [place] [address] Dr. Charan Patten MCH (RBC) [Entitic mass] 26.8 pg Normal 26.7-34.0 [facility] Comment on above: Performed By: #### C BC #### [facility] [address] [place] [address] Dr. Charan Patten MCHC (RBC) [Mass/Vol] 32.2 g/dL Normal 29.9-35.2 [facility] Comment on above: Performed By: #### C BC #### [facility] [address] [place] [address] Dr. Charan Patten MCV (RBC) [Entitic vol] 83.2 fL Normal 79.1-95.6 [facility] Comment on above: Performed By: #### C BC #### [facility] [address] [place] [address] Dr. Charan Patten MONO # 0.6 103/ul Normal 0.3-0.8 [facility] Comment on above: Performed By: #### C BC #### [facility] [address] [place] [address] Dr. Charan Patten Monocytes/100 WBC (Bld) 10.9 % Normal 1.7-12.0 [facility] Comment on above: Performed By: #### C BC #### [facility] [address] [place] [address] Dr. Charan Patten NEUT # 3.2 103/ul Normal 1.4-6.5 [facility] Comment on above: Performed By: #### C BC #### [facility] [address] [place] [address] Dr. Charan Patten Neutrophils/100 WBC (Bld) 61.2 % Normal 43.0-75.0 [facility] Comment on above: Performed By: #### C BC #### [facility] [address] [place] [address] Dr. Charan Patten Platelet mean volume (Bld) [Entitic vol] 10.7 fL Normal 9.5-13.5 [facility] Comment on above: Performed By: #### C BC #### [facility] [address] [place] [address] Dr. Charan Patten PLT 297 103/ul Normal 150-450 [facility] Comment on above: Performed By: #### C BC #### [facility] [address] [place] [address] Dr. Charan Patten RBC 4.70 106/ul Normal 3.40-5.30 [facility] Comment on above: Performed By: #### C BC #### [facility] [address] [place] [address] Dr. Charan Patten WBC 5.3 103/ul Normal 4.0-11.0 [facility] Comment on above: Performed By: #### C BC #### [facility] [address] [place] [address] Dr. Charan Patten FREE THYROXINE INDEX T7on FTI 2.37 Normal 1.30-4.50 [facility] Comment on above: Performed By: #### L IPID, T7, TSH, CMP #### [facility] [address] [place] [address] Dr. Charan Patten T3U 30.0 % Normal 30.0-39.0 [facility] Comment on above: Performed By: #### L IPID, T7, TSH, CMP #### [facility] [address] [place] [address] Dr. Charan Patten T4 [Mass/Vol] 7.90 ug/dL Normal 5.40-10.60 [facility] Comment on above: Performed By: #### L IPID, T7, TSH, CMP #### [facility] [address] [place] [address] Dr. Charan Patten GLYCOHEMOGLOBIN A1Con 2021 ADA RECOMMENDATION SEE BELOW Normal [facility] Comment on above: Result Comment: ADA RECOMMENDED LIMIT 4.0 - 6.0 ADA THERAPEUTIC TARGET < 7.0 ACTION SUGGESTED > 7.0 Performed By: #### A 1C #### [facility] [address] [place] [address] Dr. Charan Patten Glucose [Mass/Vol] 105 mg/dL Normal [facility] Comment on above: Performed By: #### A 1C #### [facility] [address] [place] [address] Dr. Charan Patten HbA1c (Bld) [Mass fraction] 5.3 % Normal 4.5-6.2 [facility] Comment on above: Performed By: #### A 1C #### [facility] [address] [place] [address] Dr. Charan Patten IRONon 11-12-2021 Iron [Mass/Vol] 44.0 ug/dL Critically low 50.0-170.0 [facility] Comment on above: Performed By: #### L IPID, T7, TSH, CMP #### [facility] [address] [place] [address] Dr. Charan Patten PROF 14(COMP METB)on 022 Albumin [Mass/Vol] 4.3 g/dL Normal 3.4-5.0 [facility] Comment on above: Performed By: #### L IPID, T7, TSH, CMP #### [facility] [address] [place] [address] Dr. Charan Patten Albumin/Globulin [Mass ratio] 1.1 {ratio} Normal [facility] Comment on above: Performed By: #### L IPID, T7, TSH, CMP #### [facility] [address] [place] [address] Dr. Charan Patten ALP [Catalytic activity/Vol] 74 U/L Normal 65-260 [facility] Comment on above: Performed By: #### L IPID, T7, TSH, CMP #### [facility] [address] [place] [address] Dr. Charan Patten ALT [Catalytic activity/Vol] 36 U/L Normal 14-59 [facility] Comment on above: Performed By: #### L IPID, T7, TSH, CMP #### [facility] [address] [place] [address] Dr. Charan Patten Anion gap [Moles/Vol] 11.9 mmol/L Normal [facility] Comment on above: Performed By: #### L IPID, T7, TSH, CMP #### [facility] [address] [address] [address] Charan Patten AST [Catalytic activity/Vol] 21 U/L Normal 15-37 [facility] Comment on above: Performed By: #### L IPID, T7, TSH, CMP #### [facility] [address] [address] [address] Charan Patten Bilirubin [Mass/Vol] 0.2 mg/dL Normal 0.2-1.0 [facility] Comment on above: Performed By: #### L IPID, T7, TSH, CMP #### [facility] [address] [place] [address] Dr. Charan Patten Calcium [Mass/Vol] 9.0 mg/dL Normal 8.5-10.1 [facility] Comment on above: Performed By: #### L IPID, T7, TSH, CMP #### [facility] [address] [place] [address] Dr. Charan Patten Chloride [Moles/Vol] 104 mmol/L Normal 98-107 [facility] Comment on above: Performed By: #### L IPID, T7, TSH, CMP #### [facility] [address] [place] [address] Dr. Charan Patten CO2 [Moles/Vol] 25.7 mmol/L Normal 21.0-32.0 [facility] Comment on above: Performed By: #### L IPID, T7, TSH, CMP #### [facility] [address] [place] [address] Dr. Charan Patten Creatinine [Mass/Vol] 0.69 mg/dL Normal 0.55-1.02 [facility] Comment on above: Performed By: #### L IPID, T7, TSH, CMP #### [facility] [address] [place] [address] Dr. Charan Patten Globulin (S) [Mass/Vol] 3.8 g/dL Normal [facility] Comment on above: Performed By: #### L IPID, T7, TSH, CMP #### [facility] [address] [address] [address] Charan Patten Glucose [Mass/Vol] 87 mg/dL Normal 74-106 [facility] Comment on above: Performed By: #### L IPID, T7, TSH, CMP #### [facility] [address] [address] [address] Charan Patten Potassium [Moles/Vol] 4.5 mmol/L Normal 3.5-5.1 [facility] Comment on above: Performed By: #### L IPID, T7, TSH, CMP #### [facility] [address] [place] [address] Dr. Charan Patten Protein [Mass/Vol] 8.1 g/dL Normal 6.4-8.2 [facility] Comment on above: Performed By: #### L IPID, T7, TSH, CMP #### [facility] [address] [place] [address] Dr. Charan Patten Sodium [Moles/Vol] 137 mmol/L Normal 136-145 [facility] Comment on above: Performed By: #### L IPID, T7, TSH, CMP #### [facility] [address] [place] [address] Dr. Charan Patten Urea nitrogen [Mass/Vol] 11.0 mg/dL Normal 6.4-19.3 [facility] Comment on above: Performed By: #### L IPID, T7, TSH, CMP #### [facility] [address] [place] [address] Dr. Charan Patten Urea nitrogen/Creatinine [Mass ratio] 15.9 mg/mg Normal [facility] Comment on above: Performed By: #### L IPID, T7, TSH, CMP #### [facility] [address] [place] [address] Dr. Charan Patten TSHon 11-12-2021 TSH 1.581 uIU/mL Normal 0.516-4.130 [facility] Comment on above: Performed By: #### L IPID, T7, TSH, CMP #### [facility] [address] [address] [address] Charan Patten VITAMIN B12on 11-12-2021 Cobalamin (Vitamin B12) [Mass/Vol] 205.0 pg/mL Normal 193.0-986.0 [facility] Comment on above: Performed By: #### L IPID, T7, TSH, CMP #### [facility] [address] [address] [address] Charan Patten VITAMIN D 25 OHon 11-12-2021 VIT D 25-OH 16.5 ng/mL Normal [facility] Comment on above: Performed By: #### L IPID, T7, TSH, CMP #### [facility] [address] [address] [address] Charan Patten VIT D RANGES SEE BELOW Normal [facility] Comment on above: Result Comment: <20 ng/mL Vit D deficient 20 - <30 ng/mL Vit D insufficient 30 - 100 ng/mL Vit D sufficient >100 ng/mL Potential Toxicity Performed By: #### L IPID, T7, TSH, CMP #### [facility] [address] [address] [address] Charan Patten Vital Signs Date Time Vital Sign Value Performing Clinician Faci lity 03-22-2024 11:28-0500 Body temperature 98.4 [degF] Noel Dukes DIRECTOR OF PHYSICAL EDUCATION Work Phone: [facility] 03-22-2024 11:28-0500 Diastolic blood pressure 80 mm[Hg] Noel Dukes DIRECTOR OF PHYSICAL EDUCATION Work Phone: [facility] 03-22-2024 11:28-0500 Heart rate 110 /min Noel Dukes DIRECTOR OF PHYSICAL EDUCATION Work Phone: [facility] 03-22-2024 11:28-0500 SaO2% (BldA) [Mass fraction] 98 % Noel Dukes DIRECTOR OF PHYSICAL EDUCATION Work Phone: [facility] 03-22-2024 11:28-0500 Systolic blood pressure 127 mm[Hg] Noel Dukes DIRECTOR OF PHYSICAL EDUCATION Work Phone: [facility] 09-19-2024 14:51-0400 Body height 154.9 cm Vera [place] DIRECTOR OF PHYSICAL EDUCATION Work Phone: [facility] 02-05-2024 14:51-0400 Body mass index (BMI) [Ratio] 28.34 kg/m2 Vera [place] DIRECTOR OF PHYSICAL EDUCATION Work Phone: [facility] 02-05-2024 14:51-0400 Body temperature 98.29 [degF] Vera [place] DIRECTOR OF PHYSICAL EDUCATION Work Phone: [facility] 02-05-2024 14:51-0400 Body weight 68.04 kg Vera [place] DIRECTOR OF PHYSICAL EDUCATION Work Phone: [facility] 02-05-2024 14:51-0400 Diastolic blood pressure 78 mm[Hg] Vera [place] DIRECTOR OF PHYSICAL EDUCATION Work Phone: [facility] 02-05-2024 14:51-0400 Heart rate 86 /min Vera [place] DIRECTOR OF PHYSICAL EDUCATION Work Phone: [facility] 02-05-2024 14:51-0400 SaO2% (BldA) [Mass fraction] 97 % Vera [place] DIRECTOR OF PHYSICAL EDUCATION Work Phone: [facility] 02-05-2024 14:51-0400 Systolic blood pressure 121 mm[Hg] Vera [place] C FINANCIAL ANALYST INTERN Work Phone: [facility] 08-26-2023 16:20-0400 Body height 154.9 cm Sabina [place] C FINANCIAL ANALYST INTERN Work Phone: [facility] 08-26-2023 16:20-0400 Body mass index (BMI) [Ratio] 26.45 kg/m2 Sabina [place] DIRECTOR OF PHYSICAL EDUCATION Work Phone: [facility] 08-26-2023 16:20-0400 Body temperature 97.59 [degF] Sabina Anh C FINANCIAL ANALYST INTERN Work Phone: [facility] 08-26-2023 16:20-0400 Body weight 63.5 kg Sabina [place] C FINANCIAL ANALYST INTERN Work Phone: [facility] 08-26-2023 16:20-0400 Diastolic blood pressure 85 mm[Hg] Sabina Anh DIRECTOR OF PHYSICAL EDUCATION Work Phone: [facility] 08-26-2023 16:20-0400 Heart rate 112 /min Sabina Anh C FINANCIAL ANALYST INTERN Work Phone: [facility] 08-26-2023 16:20-0400 SaO2% (BldA) [Mass fraction] 97 % Sabina Anh DIRECTOR OF PHYSICAL EDUCATION Work Phone: [facility] 08-26-2023 16:20-0400 Systolic blood pressure 126 mm[Hg] Sabina [place] rt DIRECTOR OF PHYSICAL EDUCATION Work Phone: [facility] Encounters Encounter Date Encounter Type Care Provider Facility Start: 03-22-2024 End: 03-22-2024 ambulatory PROVIDER NOT IN SYSTEM [facility] Start: 03-22-2024 End: 03-22-2024 Office outpatient visit 15 minutes Noel Dukes DIRECTOR OF PHYSICAL EDUCATION Work Phone: [facility] Comment on above: Acute pharyngitis, u nspecified etiology (Primary Dx); Sore throat Start: 02-05-2024 End: 02-05-2024 Office outpatient visit 15 minutes Vera Llamas DIRECTOR OF PHYSICAL EDUCATION Work Phone: [facility] Comment on above: Wrist injury, right, initial encounter (Primary Dx) Start: 02-05-2024 End: 02-05-2024 ambulatory PROVIDER NOT IN SYSTEM [facility] Start: 12-17-2023 End: 12-17-2023 ambulatory JULIAN HILLMIS Not Available Start: 08-26-2023 End: 08-26-2023 Office outpatient new 20 minutes Sabina Kamara DIRECTOR OF PHYSICAL EDUCATION Work Phone: [facility] Comment on above: Eustachian tube dysf unction, bilateral (Primary Dx) Start: 08-26-2023 End: 08-26-2023 ambulatory SABINA KAMARA [facility] Start: 05-07-2022 End: 05-08-2022 ambulatory [...] Iaadiadoo streptococ cus group a Noel Dukes [facility] Work Phone: Plan of Treatment Date Care Activity Detail Author Start: 01-18-2024 COVID-19 Vaccine () COVID-19 Vaccine () [facility] Start: 01-18-2024 COVID-19 Vaccine ( season) COVID-19 Vaccine () [facility] Start: 01-18-2024 Influenza vaccination [facility] Start: 01-17-2023 COVID-19 Vaccine ( season) COVID-19 Vaccine ( season) [facility] Start: 12-29-2021 Hepatitis C screening Hepatitis C Screening [facility] Start: 12-29-2018 HIV screening HIV Screening [facility] Start: 12-29-2018 Vaccination for human papillomavirus HPV Vaccines (1 - 3-dose series) [facility] Start: 2015 Depression screening using PHQ-9 (Patient Health Questionnaire 9) score [facility] Start: 12-29-2006 History and physical examination, annual for health maintenance Wellness Visit [facility] Start: 2003 Screening for Chlamydia trachomatis Chlamydia Screening [facility] Start: 2003 Tetanus vaccination Tetanus: Every 10yrs [facility] XR Wrist - right 3 Views XR Wris t Right 3+ Views (Standard) Imaging [facility] Wrist injury, right, initial encounter 02/05/2024 3:27 PM EDT [facility] Work Phone: Payers Date Payer Category Payer Unknown [id number] 2003 Unknown [id number] 2003 Unknown [id number] 2003 Unknown [id number] 2003 Unknown [id number] 2003 Unknown [id number] 1969 Unknown [id number] 1959 Unknown [id number] Managed Care PPO (unspecified) [employer] PPO Member Subscriber Plan / Payer (Effective for All Dates) Name: Jaz Saleh Relation to Subscriber: Self Name: Jaz Saleh Payer ID: Not on file Group ID: Not on file Type: Not on file Address: [address] [id number] Unknown MMO [employer] S UPERMED PPO [id number] Effective for all dates [phone] [place], [place] [id number] Social History Date Type Detail Facility Start: 08-26-2023 Tobacco smoking status NHIS Never sm oked tobacco [facility] Start: 08-26-2023 Tobacco use and exposure Smokeless t obacco non-user [facility] Start: 08-26-2023 End: 03-22-2024 Alcohol intake Lifetime non-drinker (finding) [facility] Start: 2005 Sex Assigned At Not on file [facility] Start: 08-26-2023 End: 03-22-2024 Gender identity Not on file [facility] Start: 08-26-2023 End: 03-22-2024 History of Social function [facility] Start: 02-04-2024 Gender identity Identifies as female gender (finding) [facility] Start: 02-04-2024 Sexual orientation Heterosexual (fin jalil) [facility] Clinical Notes 08-26-2023 to 03-22-2024 Noel Dukes CNP - 03/22/2024 11:38 AM Vera Morrow CNP - 02/05/2024 3:36 PM EDTPatient Sabina Ball CNP - 08/26/2023 4:28 PM EDT Note Date & Type Note Facility 03-22-2024 Note PATIENT NAME: Jaz Saleh [facility] [address] [place] [id number] : 2005 DATE OF VISIT: 03/22/2024 SS#: [...] mg Lozg dextromethorphan-gua (more content not included)... [facility] 03-22-2024 History of Presen t illness Narrative PATIENT NAME: Jaz Saleh [facility] [address] [id number] : 2005 DATE OF VISIT: 03/22/2024 #: [...] for this visit. documented in this encounter [facility] 02-05-2024 Note Subjective: Patient ID: Jaz Saleh [...] AUTHENTICATED BY VERA LLAMAS ON 02/05/2024 15:38:22 [facility] 02-05-2024 History of Presen t [...] with no questions. documented in this encounter [facility] 02-05-2024 Instructions Vera Llamas CNP - 02/05/2024 3:30 PM EDT Images from the original note were not included. Preliminary xray interpretation shows no bone abnormalities. Likely sprain which can be sore for 4-6 weeks You will receive a final xray interpretation via [employer] within 24 hours If xray confirms broken [...] avoid damaging your skin with the ice. Ngqo-nzo-ilnccgu medication: Take an anti-inflammatory medication like ibuprofen (Motrin, Advil, and Aleve) or a pain reliever like acetaminophen (Tylenol). Continue bracing during your day for the next week Over the counter biofreeze can be used to help with discomfort documented in this encounter [facility] 08-26-2023 History of Presen t illness Narrative PATIENT NAME: Jaz Saleh [facility] [address] [place] [id number] : 2005 DATE OF VISIT: 08/26/2023 #: [...] for this visit. documented in this encounter [facility] Evaluation note Diagnosis Eustachian tube dysfunction, bilateral- [facility], right, initial encounter- [facility] Diagnosis Acute pharyngitis, unspecified etiology- Primary Sore throat Acute ph[facility]itis [facility] Attachments The following attachments cannot be sent through Care Everywhere. * Eustachian Tube Problems ([place]azakh) [facility]* Attachments The following attachments cannot be sent through Care Everywhere. * Sore Throat ([place]az[place]) [facility] Purpose Family History No Family History Records FoundNo Family History Records FoundNo Family History Records Found Advance Directives No Advanced Directives Records FoundNo Advanced Directives Records FoundNo Advanced Directives Records Found Additional Source Comments INFORMATION SOURCE (unrecogn ized section and content) DATE CREATED AUTHOR 05/15/2022 [facility] DATE CREATED AUTHOR AUTHOR'S ORGANIZ ATION 12/19/2023 [facility] EPIC DATE CREATED AUTHOR AUTHOR'S ORGANIZ ATION 03/23/2024 [facility] Reason for Visit (unrecogniz ed section and [...] Care Teams (unrecognized sec tion and content) Set Illustrator Relationship Specialty Start Date End Date System, Provider Not In PCP - General 08/26/23 Set Illustrator Relationship Specialty Start Date End Date System, [...] BE BASED ON THE PRIMARY CLINICAL RECORDS. [employer] provides no warranty or guarantee of the accuracy or completeness of information in this document.
== END 2024-04-17 09:49 | disposition home or self-care (01) ==
LOC: US 09:49
PROVIDERS: PCP Family Medicine; Visit Provider Family Medicine
DX: N93.8 Other specified abnormal uterine and vaginal bleeding (principal)
CPT/HCPCS: 76856

== ENCOUNTER 2024-05-05 20:04 | Outpatient (OUT) | payer OTHER, SELFPAY ==
--- OUTSIDE RECORDS SUMMARY | 2024-05-05 20:06 | XMS_ITS | CCD ---
Author Organization [facility] Care Team Providers Care Electrician Supervisor Airplane Name Role Phone JOHN, DR URIARTE Admitting [...] extended release oral tablet (1 source) Uncompetitive P-bgdhps-W-aspartate Receptor Antagonist, Sigma-1 Agonist Start: 03-22-2024 End: [...] Interpretation and review of laboratory results Normal [facility] S. pyogenes Ag Ql (Throat) Negative Negative [facility] XR WRIST RIGHT 3+ VIEWS (STA NDARD)on [...] noted. IMPRESSION: No acute osseous abnormality noted. [employer]KS[employer] Workstation ID: [id number] Dictated by: ABELINO ZABALA on FriFeb 05, 2024 5:13:59 PM EDT Transcribed by: BRANDI STATON on FriFeb 05, 2024 5:23:34 PM EDT Finalized by: ABELINO ZABALA on FriFeb 06, 2024 6:30:36 AM EDT [facility] Comment on above: Order [...] 05-08-2022 Insulin 13.7 uIU/mL Normal 2.6-24.9 [facility] Comment on above: Performed By: #### I NSULIN #### [facility] [address] [place] [address] Dr. Charan Patten CBC AUTO DIFFon 05-07-2022 BASO # 0.0 103/ul Normal 0.0-0.1 [facility] Comment on above: Performed By: #### C BC #### [facility] [address] [place] [address] Dr. Charan Patten Basophils/100 WBC (Bld) 0.7 % Normal 0.2-2.0 [facility] Comment on above: Performed By: #### C BC #### [facility] [address] [place] [address] Dr. Charan Patten EO # 0.1 103/ul Normal 0.0-0.7 [facility] Comment on above: Performed By: #### C BC #### [facility] [address] [place] [address] Dr. Charan Patten Eosinophils/100 WBC (Bld) 1.7 % Normal 0.9-7.0 [facility] Comment on above: Performed By: #### C BC #### [facility] [address] [place] [address] Dr. Charan Patten Erythrocyte distribution width (RBC) [Ratio] 13.1 % Normal 11.0-15.0 [facility] Comment on above: Performed By: #### C BC #### [facility] [address] [place] [address] Dr. Charan Patten Hematocrit (Bld) [Volume fraction] 39.7 % Normal 36.0-48.0 [facility] Comment on above: Performed By: #### C BC #### [facility] [address] [place] [address] Dr. Charan Patten Hemoglobin (Bld) [Mass/Vol] 13.3 g/dL Normal 12.0-16.0 [facility] Comment on above: Performed By: #### C BC #### [facility] [address] [place] [address] Dr. Charan Patten IG # 0.02 10e3/ul Normal 0.00-0.03 [facility] Comment on above: Performed By: #### C BC #### [facility] [address] [place] [address] Dr. Charan Patten IG % 0.3 % Normal 0.0-0.5 [facility] Comment on above: Performed By: #### C BC #### [facility] [address] [place] [address] Dr. Charan Patten LYMPH # 1.8 103/ul Normal 1.2-3.8 [facility] Comment on above: Performed By: #### C BC #### [facility] [address] [place] [address] Dr. Charan Patten Lymphocytes/100 WBC (Bld) 30.0 % Normal 20.5-60.0 [facility] Comment on above: Performed By: #### C BC #### [facility] [address] [place] [address] Dr. Charan Patten MANUAL DIFF REQ NO Normal [facility] Comment on above: Performed By: #### C BC #### [facility] [address] [place] [address] Dr. Charan Patten MCH (RBC) [Entitic mass] 29.2 pg Normal 26.7-34.0 [facility] Comment on above: Performed By: #### C BC #### [facility] [address] [place] [address] Dr. Charan Patten MCHC (RBC) [Mass/Vol] 33.5 g/dL Normal 29.9-35.2 [facility] Comment on above: Performed By: #### C BC #### [facility] [address] [place] [address] Dr. Charan Patten MCV (RBC) [Entitic vol] 87.1 fL Normal 81.0-99.0 [facility] Comment on above: Performed By: #### C BC #### [facility] [address] [place] [address] Dr. Charan Patten MONO # 0.6 103/ul Normal 0.3-0.8 [facility] Comment on above: Performed By: #### C BC #### [facility] [address] [place] [address] Dr. Charan Patten Monocytes/100 WBC (Bld) 9.8 % Normal 1.7-12.0 [facility] Comment on above: Performed By: #### C BC #### [facility] [address] [place] [address] Dr. Charan Patten NEUT # 3.4 103/ul Normal 1.4-6.5 [facility] Comment on above: Performed By: #### C BC #### [facility] [address] [place] [address] Dr. Charan Patten Neutrophils/100 WBC (Bld) 57.5 % Normal 43.0-75.0 [facility] Comment on above: Performed By: #### C BC #### [facility] [address] [place] [address] Dr. Charan Patten Platelet mean volume (Bld) [Entitic vol] 10.4 fL Normal 9.5-13.5 [facility] Comment on above: Performed By: #### C BC #### [facility] [address] [place] [address] Dr. Charan Patten PLT 268 103/ul Normal 150-450 [facility] Comment on above: Performed By: #### C BC #### [facility] [address] [place] [address] Dr. Charan Patten RBC 4.56 106/ul Normal 4.20-5.40 [facility] Comment on above: Performed By: #### C BC #### [facility] [address] [place] [address] Dr. Charan Patten WBC 5.9 103/ul Normal 4.0-11.0 [facility] Comment on above: Performed By: #### C BC #### [facility] [address] [place] [address] Dr. Charan Patten FREE THYROXINE INDEX T7on FTI 2.11 Normal 1.30-4.50 [facility] Comment on above: Performed By: #### L IPID, T7, TSH, CMP #### [facility] [address] [place] [address] Dr. Charan Patten T3U 32.0 % Normal 30.0-39.0 [facility] Comment on above: Performed By: #### L IPID, T7, TSH, CMP #### [facility] [address] [address] [address] Charan Patten T4 [Mass/Vol] 6.60 ug/dL Normal 5.40-10.60 [facility] Comment on above: Performed By: #### L IPID, T7, TSH, CMP #### [facility] [address] [address] [address] Charan Patten GLYCOHEMOGLOBIN A1Con 2021 ADA RECOMMENDATION SEE BELOW Normal [facility] Comment on above: Result Comment: ADA RECOMMENDED LIMIT 4.0 - 6.0 ADA THERAPEUTIC TARGET < 7.0 ACTION SUGGESTED > 7.0 Performed By: #### A 1C #### [facility] [address] [place] [address] Dr. Charan Patten Glucose [Mass/Vol] 94 mg/dL Normal [facility] Comment on above: Performed By: #### A 1C #### [facility] [address] [place] [address] Dr. Charan Patten HbA1c (Bld) [Mass fraction] 4.9 % Normal 4.5-6.2 [facility] Comment on above: Performed By: #### A 1C #### [facility] [address] [place] [address] Dr. Charan Patten IRONon 05-07-2022 Iron [Mass/Vol] 140.0 ug/dL Normal 50.0-170.0 [facility] Comment on above: Performed By: #### L IPID, T7, TSH, CMP #### [facility] [address] [place] [address] Dr. Charan Patten LIPID PROFILEon 05-07-2022 CHOL-HDL RATIO NORM SEE BELOW Normal [facility] Comment on above: Result Comment: 3.3 - 4.4 LOW RISK 4.4 - 7.1 AVERAGE RISK 7.1 - 11.0 MODERATE RISK >11.0 HIGH RISK Performed By: #### L IPID, T7, TSH, CMP #### [facility] [address] [place] [address] Dr. Charan Patten Cholesterol [Mass/Vol] 176 mg/dL Normal 104-227 [facility] Comment on above: Performed By: #### L IPID, T7, TSH, CMP #### [facility] [address] [address] [address] Charan Patten Cholesterol in HDL [Mass/Vol] 70 mg/dL Critically high 29-69 [facility] Comment on above: Performed By: #### L IPID, T7, TSH, CMP #### [facility] [address] [address] [address] Charan Patten Cholesterol in LDL [Mass/Vol] 88.2 mg/dL Normal 46.0-140.0 [facility] Comment on above: Performed By: #### L IPID, T7, TSH, CMP #### [facility] [address] [address] [address] Charan Patten Cholesterol.total/Cho lesterol in HDL [Mass ratio] 2.5 {ratio} Normal [facility] Comment on above: Performed By: #### L IPID, T7, TSH, CMP #### [facility] [address] [address] [address] Charan Patten HDL NORMAL > or = 60 mg/dl - LOW CARDIOVASCULAR RISK <40 mg/dl - HIGH CARDIOVASCULAR RISK Normal [facility] Comment on above: Performed By: #### L IPID, T7, TSH, CMP #### [facility] [address] [address] [address] Charan Patten LDL CALC NORMAL SEE BELOW Normal [facility] Comment on above: Result Comment: <100 mg/dl OPTIMAL 100 - 129 mg/dl NEAR OR ABOVE OPTIMAL 130 - 159 mg/dl BORDERLINE HIGH 160 - 189 mg/dl HIGH >190 mg/dl VERY HIGH Performed By: #### L IPID, T7, TSH, CMP #### [facility] [address] [address] [address] Charan Patten Triglyceride [Mass/Vol] 89 mg/dL Normal 53-208 [facility] Comment on above: Performed By: #### L IPID, T7, TSH, CMP #### [facility] [address] [address] [address] Charan Patten VLDL CALC 17.8 mg/dL Normal [facility] Comment on above: Performed By: #### L IPID, T7, TSH, CMP #### [facility] [address] [address] [address] Charan Patten OCC BLD IMMUNO SCREENon 04-19 OCCULT BLOOD Negative Normal NEGATIVE [facility] Comment on above: Performed By: #### O BSCRN #### [facility] [address] [address] [address] Charan Patten PROF 14(COMP METB)on 022 Albumin [Mass/Vol] 4.5 g/dL Normal 3.4-5.0 [facility] Comment on above: Performed By: #### L IPID, T7, TSH, CMP #### [facility] [address] [place] [address] Dr. Charan Patten Albumin/Globulin [Mass ratio] 1.3 {ratio} Normal [facility] Comment on above: Performed By: #### L IPID, T7, TSH, CMP #### [facility] [address] [address] [address] Charan Patten ALP [Catalytic activity/Vol] 74 U/L Normal 46-116 [facility] Comment on above: Performed By: #### L IPID, T7, TSH, CMP #### [facility] [address] [address] [address] Charan Patten ALT [Catalytic activity/Vol] 39 U/L Normal 14-59 [facility] Comment on above: Performed By: #### L IPID, T7, TSH, CMP #### [facility] [address] [address] [address] Charan Patten Anion gap [Moles/Vol] 14.4 mmol/L Normal [facility] Comment on above: Performed By: #### L IPID, T7, TSH, CMP #### [facility] [address] [address] [address] Charan Patten AST [Catalytic activity/Vol] 30 U/L Normal 15-37 [facility] Comment on above: Performed By: #### L IPID, T7, TSH, CMP #### [facility] [address] [address] [address] Charan Patten Bilirubin [Mass/Vol] 0.5 mg/dL Normal 0.2-1.0 [facility] Comment on above: Performed By: #### L IPID, T7, TSH, CMP #### [facility] [address] [place] [address] Dr. Charan Patten Calcium [Mass/Vol] 9.1 mg/dL Normal 8.5-10.1 [facility] Comment on above: Performed By: #### L IPID, T7, TSH, CMP #### [facility] [address] [place] [address] Dr. Charan Patten Chloride [Moles/Vol] 102 mmol/L Normal 98-107 [facility] Comment on above: Performed By: #### L IPID, T7, TSH, CMP #### [facility] [address] [place] [address] Dr. Charan Patten CO2 [Moles/Vol] 23.8 mmol/L Normal 21.0-32.0 [facility] Comment on above: Performed By: #### L IPID, T7, TSH, CMP #### [facility] [address] [place] [address] Dr. Charan Patten Creatinine [Mass/Vol] 0.73 mg/dL Normal 0.55-1.02 [facility] Comment on above: Performed By: #### L IPID, T7, TSH, CMP #### [facility] [address] [place] [address] Dr. Charan Patten EGFR-AF BAHRAINI >60 Normal >=60 [facility] Comment on above: Performed By: #### L IPID, T7, TSH, CMP #### [facility] [address] [place] [address] Dr. Charan Patten EGFR-NON AF BAHRAINI >60 Normal >=60 [facility] Comment on above: Performed By: #### L IPID, T7, TSH, CMP #### [facility] [address] [address] [address] Charan Patten Globulin (S) [Mass/Vol] 3.4 g/dL Normal [facility] Comment on above: Performed By: #### L IPID, T7, TSH, CMP #### [facility] [address] [address] [address] Charan Patten Glucose [Mass/Vol] 90 mg/dL Normal 74-106 [facility] Comment on above: Performed By: #### L IPID, T7, TSH, CMP #### [facility] [address] [address] [address] Charan Patten Potassium [Moles/Vol] 4.2 mmol/L Normal 3.5-5.1 [facility] Comment on above: Performed By: #### L IPID, T7, TSH, CMP #### [facility] [address] [place] [address] Dr. Charan Patten Protein [Mass/Vol] 7.9 g/dL Normal 6.4-8.2 [facility] Comment on above: Performed By: #### L IPID, T7, TSH, CMP #### [facility] [address] [address] [address] Charan Patten Sodium [Moles/Vol] 136 mmol/L Normal 136-145 [facility] Comment on above: Performed By: #### L IPID, T7, TSH, CMP #### [facility] [address] [address] [address] Charan Patten Urea nitrogen [Mass/Vol] 10.0 mg/dL Normal 6.4-19.3 [facility] Comment on above: Performed By: #### L IPID, T7, TSH, CMP #### [facility] [address] [place] [address] Dr. Charan Patten Urea nitrogen/Creatinine [Mass ratio] 13.7 mg/mg Normal [facility] Comment on above: Performed By: #### L IPID, T7, TSH, CMP #### [facility] [address] [address] [address] Charan Patten TSHon 05-07-2022 TSH 1.580 uIU/mL Normal 0.516-4.130 [facility] Comment on above: Performed By: #### L IPID, T7, TSH, CMP #### [facility] [address] [place] [address] Dr. Charan Patten VITAMIN D 25 OHon 05-07-2022 VIT D 25-OH 14.3 ng/mL Normal [facility] Comment on above: Performed By: #### L IPID, T7, TSH, CMP #### [facility] [address] [place] [address] Dr. Charan Patten VIT D RANGES SEE BELOW Normal [facility] Comment on above: Result Comment: <20 ng/mL Vit D deficient 20 - <30 ng/mL Vit D insufficient 30 - 100 ng/mL Vit D sufficient >100 ng/mL Potential Toxicity Performed By: #### L IPID, T7, TSH, CMP #### [facility] [address] [place] [address] Dr. Charan Patten INSULINon 11-13-2021 Insulin 35.5 uIU/mL Critically high 2.6-24.9 [facility] Comment on above: Performed By: #### L IPID, T7, TSH, CMP #### [facility] [address] [place] [address] Dr. Charan Patten CBC AUTO DIFFon 11-12-2021 BASO # 0.1 103/ul Normal 0.0-0.1 [facility] Comment on above: Performed By: #### C BC #### [facility] [address] [place] [address] Dr. Charan Patten Basophils/100 WBC (Bld) 0.9 % Normal 0.2-2.0 [facility] Comment on above: Performed By: #### C BC #### [facility] [address] [place] [address] Dr. Charan Patten EO # 0.0 103/ul Normal 0.0-0.7 [facility] Comment on above: Performed By: #### C BC #### [facility] [address] [place] [address] Dr. Charan Patten Eosinophils/100 WBC (Bld) 0.4 % Critically low 0.9-7.0 [facility] Comment on above: Performed By: #### C BC #### [facility] [address] [place] [address] Dr. Charan Patten Erythrocyte distribution width (RBC) [Ratio] 14.8 % Normal 11.0-15.0 [facility] Comment on above: Performed By: #### C BC #### [facility] [address] [place] [address] Dr. Charan Patten Hematocrit (Bld) [Volume fraction] 39.1 % Normal 36.0-48.0 [facility] Comment on above: Performed By: #### C BC #### [facility] [address] [place] [address] Dr. Charan Patten Hemoglobin (Bld) [Mass/Vol] 12.6 g/dL Normal 12.0-16.0 [facility] Comment on above: Performed By: #### C BC #### [facility] [address] [place] [address] Dr. Charan Patten IG # 0.08 10e3/ul Critically high 0.00-0.03 [facility] Comment on above: Performed By: #### C BC #### [facility] [address] [place] [address] Dr. Charan Patten IG % 1.5 % Critically high 0.0-0.5 [facility] Comment on above: Performed By: #### C BC #### [facility] [address] [place] [address] Dr. Charan Patten LYMPH # 1.3 103/ul Normal 1.2-3.8 [facility] Comment on above: Performed By: #### C BC #### [facility] [address] [place] [address] Dr. Charan Patten Lymphocytes/100 WBC (Bld) 25.1 % Normal 20.5-60.0 [facility] Comment on above: Performed By: #### C BC #### [facility] [address] [place] [address] Dr. Charan Patten MANUAL DIFF REQ NO Normal [facility] Comment on above: Performed By: #### C BC #### [facility] [address] [place] [address] Dr. Charan Patten MCH (RBC) [Entitic mass] 26.8 pg Normal 26.7-34.0 [facility] Comment on above: Performed By: #### C BC #### [facility] [address] [place] [address] Dr. Charan Patten MCHC (RBC) [Mass/Vol] 32.2 g/dL Normal 29.9-35.2 [facility] Comment on above: Performed By: #### C BC #### [facility] [address] [place] [address] Dr. Charan Patten MCV (RBC) [Entitic vol] 83.2 fL Normal 79.1-95.6 [facility] Comment on above: Performed By: #### C BC #### [facility] [address] [place] [address] Dr. Charan Patten MONO # 0.6 103/ul Normal 0.3-0.8 [facility] Comment on above: Performed By: #### C BC #### [facility] [address] [place] [address] Dr. Charan Patten Monocytes/100 WBC (Bld) 10.9 % Normal 1.7-12.0 [facility] Comment on above: Performed By: #### C BC #### [facility] [address] [place] [address] Dr. Charan Patten NEUT # 3.2 103/ul Normal 1.4-6.5 [facility] Comment on above: Performed By: #### C BC #### [facility] [address] [place] [address] Dr. Charan Patten Neutrophils/100 WBC (Bld) 61.2 % Normal 43.0-75.0 [facility] Comment on above: Performed By: #### C BC #### [facility] [address] [place] [address] Dr. Charan Patten Platelet mean volume (Bld) [Entitic vol] 10.7 fL Normal 9.5-13.5 [facility] Comment on above: Performed By: #### C BC #### [facility] [address] [place] [address] Dr. Charan Patten PLT 297 103/ul Normal 150-450 [facility] Comment on above: Performed By: #### C BC #### [facility] [address] [place] [address] Dr. Charan Patten RBC 4.70 106/ul Normal 3.40-5.30 [facility] Comment on above: Performed By: #### C BC #### [facility] [address] [place] [address] Dr. Charan Patten WBC 5.3 103/ul Normal 4.0-11.0 [facility] Comment on above: Performed By: #### C BC #### [facility] [address] [place] [address] Dr. Charan Patten FREE THYROXINE INDEX T7on FTI 2.37 Normal 1.30-4.50 [facility] Comment on above: Performed By: #### L IPID, T7, TSH, CMP #### [facility] [address] [place] [address] Dr. Charan Patten T3U 30.0 % Normal 30.0-39.0 [facility] Comment on above: Performed By: #### L IPID, T7, TSH, CMP #### [facility] [address] [place] [address] Dr. Charan Patten T4 [Mass/Vol] 7.90 ug/dL Normal 5.40-10.60 [facility] Comment on above: Performed By: #### L IPID, T7, TSH, CMP #### [facility] [address] [place] [address] Dr. Charan Patten GLYCOHEMOGLOBIN A1Con 2021 ADA RECOMMENDATION SEE BELOW Normal [facility] Comment on above: Result Comment: ADA RECOMMENDED LIMIT 4.0 - 6.0 ADA THERAPEUTIC TARGET < 7.0 ACTION SUGGESTED > 7.0 Performed By: #### A 1C #### [facility] [address] [place] [address] Dr. Charan Patten Glucose [Mass/Vol] 105 mg/dL Normal [facility] Comment on above: Performed By: #### A 1C #### [facility] [address] [place] [address] Dr. Charan Patten HbA1c (Bld) [Mass fraction] 5.3 % Normal 4.5-6.2 [facility] Comment on above: Performed By: #### A 1C #### [facility] [address] [place] [address] Dr. Charan Patten IRONon 11-12-2021 Iron [Mass/Vol] 44.0 ug/dL Critically low 50.0-170.0 [facility] Comment on above: Performed By: #### L IPID, T7, TSH, CMP #### [facility] [address] [place] [address] Dr. Charan Patten PROF 14(COMP METB)on 022 Albumin [Mass/Vol] 4.3 g/dL Normal 3.4-5.0 [facility] Comment on above: Performed By: #### L IPID, T7, TSH, CMP #### [facility] [address] [place] [address] Dr. Charan Patten Albumin/Globulin [Mass ratio] 1.1 {ratio} Normal [facility] Comment on above: Performed By: #### L IPID, T7, TSH, CMP #### [facility] [address] [place] [address] Dr. Charan Patten ALP [Catalytic activity/Vol] 74 U/L Normal 65-260 [facility] Comment on above: Performed By: #### L IPID, T7, TSH, CMP #### [facility] [address] [place] [address] Dr. Charan Patten ALT [Catalytic activity/Vol] 36 U/L Normal 14-59 [facility] Comment on above: Performed By: #### L IPID, T7, TSH, CMP #### [facility] [address] [place] [address] Dr. Charan Patten Anion gap [Moles/Vol] 11.9 mmol/L Normal Th e [facility] Comment on above: Performed By: #### L IPID, T7, TSH, CMP #### [facility] [address] [address] [address] Charan Patten AST [Catalytic activity/Vol] 21 U/L Normal 15-37 [facility] Comment on above: Performed By: #### L IPID, T7, TSH, CMP #### [facility] [address] [address] [address] Charan Patten Bilirubin [Mass/Vol] 0.2 mg/dL Normal 0.2-1.0 [facility] Comment on above: Performed By: #### L IPID, T7, TSH, CMP #### [facility] [address] [place] [address] Dr. Charan Patten Calcium [Mass/Vol] 9.0 mg/dL Normal 8.5-10.1 [facility] Comment on above: Performed By: #### L IPID, T7, TSH, CMP #### [facility] [address] [place] [address] Dr. Charan Patten Chloride [Moles/Vol] 104 mmol/L Normal 98-107 [facility] Comment on above: Performed By: #### L IPID, T7, TSH, CMP #### [facility] [address] [place] [address] Dr. Charan Patten CO2 [Moles/Vol] 25.7 mmol/L Normal 21.0-32.0 [facility] Comment on above: Performed By: #### L IPID, T7, TSH, CMP #### [facility] [address] [place] [address] Dr. Charan Patten Creatinine [Mass/Vol] 0.69 mg/dL Normal 0.55-1.02 [facility] Comment on above: Performed By: #### L IPID, T7, TSH, CMP #### [facility] [address] [place] [address] Dr. Charan Patten Globulin (S) [Mass/Vol] 3.8 g/dL Normal [facility] Comment on above: Performed By: #### L IPID, T7, TSH, CMP #### [facility] [address] [address] [address] Charan Patten Glucose [Mass/Vol] 87 mg/dL Normal 74-106 [facility] Comment on above: Performed By: #### L IPID, T7, TSH, CMP #### [facility] [address] [address] [address] Charan Patten Potassium [Moles/Vol] 4.5 mmol/L Normal 3.5-5.1 [facility] Comment on above: Performed By: #### L IPID, T7, TSH, CMP #### [facility] [address] [place] [address] Dr. Charan Patten Protein [Mass/Vol] 8.1 g/dL Normal 6.4-8.2 [facility] Comment on above: Performed By: #### L IPID, T7, TSH, CMP #### [facility] [address] [place] [address] Dr. Charan Patten Sodium [Moles/Vol] 137 mmol/L Normal 136-145 [facility] Comment on above: Performed By: #### L IPID, T7, TSH, CMP #### [facility] [address] [place] [address] Dr. Charan Patten Urea nitrogen [Mass/Vol] 11.0 mg/dL Normal 6.4-19.3 [facility] Comment on above: Performed By: #### L IPID, T7, TSH, CMP #### [facility] [address] [place] [address] Dr. Charan Patten Urea nitrogen/Creatinine [Mass ratio] 15.9 mg/mg Normal [facility] Comment on above: Performed By: #### L IPID, T7, TSH, CMP #### [facility] [address] [place] [address] Dr. Charan Patten TSHon 11-12-2021 TSH 1.581 uIU/mL Normal 0.516-4.130 [facility] Comment on above: Performed By: #### L IPID, T7, TSH, CMP #### [facility] [address] [address] [address] Charan Patten VITAMIN B12on 11-12-2021 Cobalamin (Vitamin B12) [Mass/Vol] 205.0 pg/mL Normal 193.0-986.0 [facility] Comment on above: Performed By: #### L IPID, T7, TSH, CMP #### [facility] [address] [address] [address] Charan Patten VITAMIN D 25 OHon 11-12-2021 VIT D 25-OH 16.5 ng/mL Normal [facility] Comment on above: Performed By: #### L IPID, T7, TSH, CMP #### [facility] [address] [address] [address] Charan Patten VIT D RANGES SEE BELOW Normal [facility] Comment on above: Result Comment: <20 ng/mL Vit D deficient 20 - <30 ng/mL Vit D insufficient 30 - 100 ng/mL Vit D sufficient >100 ng/mL Potential Toxicity Performed By: #### L IPID, T7, TSH, CMP #### [facility] [address] [address] [address] Charan Patten Vital Signs Date Time Vital Sign Value Performing Clinician Faci lity 03-22-2024 11:28-0500 Body temperature 98.4 [degF] Noel Dukes BIOMEDICAL SCIENTIST Work Phone: [facility] 03-22-2024 11:28-0500 Diastolic blood pressure 80 mm[Hg] Noel Dukes BIOMEDICAL SCIENTIST Work Phone: [facility] 03-22-2024 11:28-0500 Heart rate 110 /min Noel Dukes BIOMEDICAL SCIENTIST Work Phone: [facility] 03-22-2024 11:28-0500 SaO2% (BldA) [Mass fraction] 98 % Noel Dukes BIOMEDICAL SCIENTIST Work Phone: [facility] 03-22-2024 11:28-0500 Systolic blood pressure 127 mm[Hg] Noel Dukes BIOMEDICAL SCIENTIST Work Phone: [facility] 09-19-2024 14:51-0400 Body height 154.9 cm Vera Tesuque BIOMEDICAL SCIENTIST Work Phone: [facility] 02-05-2024 14:51-0400 Body mass index (BMI) [Ratio] 28.34 kg/m2 Vera Tesuque BIOMEDICAL SCIENTIST Work Phone: [facility] 02-05-2024 14:51-0400 Body temperature 98.29 [degF] Vera Tesuque BIOMEDICAL SCIENTIST Work Phone: [facility] 02-05-2024 14:51-0400 Body weight 68.04 kg Vera Tesuque BIOMEDICAL SCIENTIST Work Phone: [facility] 02-05-2024 14:51-0400 Diastolic blood pressure 78 mm[Hg] Vera Tesuque BIOMEDICAL SCIENTIST Work Phone: [facility] 02-05-2024 14:51-0400 Heart rate 86 /min Vera Tesuque BIOMEDICAL SCIENTIST Work Phone: [facility] 02-05-2024 14:51-0400 SaO2% (BldA) [Mass fraction] 97 % Vera Tesuque BIOMEDICAL SCIENTIST Work Phone: [facility] 02-05-2024 14:51-0400 Systolic blood pressure 121 mm[Hg] Vera Lazarnton C GRAIN SAMPLER Work Phone: [facility] 08-26-2023 16:20-0400 Body height 154.9 cm Sabina Rome C GRAIN SAMPLER Work Phone: [facility] 08-26-2023 16:20-0400 Body mass index (BMI) [Ratio] 26.45 kg/m2 Sabina Rome BIOMEDICAL SCIENTIST Work Phone: [facility] 08-26-2023 16:20-0400 Body temperature 97.59 [degF] Sabina Anh C GRAIN SAMPLER Work Phone: [facility] 08-26-2023 16:20-0400 Body weight 63.5 kg Sabina Rome C GRAIN SAMPLER Work Phone: [facility] 08-26-2023 16:20-0400 Diastolic blood pressure 85 mm[Hg] Sabina Anh BIOMEDICAL SCIENTIST Work Phone: [facility] 08-26-2023 16:20-0400 Heart rate 112 /min Sabina Anh C GRAIN SAMPLER Work Phone: [facility] 08-26-2023 16:20-0400 SaO2% (BldA) [Mass fraction] 97 % Sabina Anh BIOMEDICAL SCIENTIST Work Phone: [facility] 08-26-2023 16:20-0400 Systolic blood pressure 126 mm[Hg] Sabina Bardayton rt BIOMEDICAL SCIENTIST Work Phone: [facility] Encounters Encounter Date Encounter Type Care Provider Facility Start: 03-22-2024 End: 03-22-2024 ambulatory PROVIDER NOT IN SYSTEM [facility] Start: 03-22-2024 End: 03-22-2024 Office outpatient visit 15 minutes Noel Dukes BIOMEDICAL SCIENTIST Work Phone: [facility] Comment on above: Acute pharyngitis, u nspecified etiology (Primary Dx); Sore throat Start: 02-05-2024 End: 02-05-2024 Office outpatient visit 15 minutes Vera Llamas BIOMEDICAL SCIENTIST Work Phone: [facility] Comment on above: Wrist injury, right, initial encounter (Primary Dx) Start: 02-05-2024 End: 02-05-2024 ambulatory PROVIDER NOT IN SYSTEM [facility] Start: 12-17-2023 End: 12-17-2023 ambulatory JULIAN HILLMIS Not Available Start: 08-26-2023 End: 08-26-2023 Office outpatient new 20 minutes Sabina Kamara BIOMEDICAL SCIENTIST Work Phone: [facility] Comment on above: Eustachian tube dysf unction, bilateral (Primary Dx) Start: 08-26-2023 End: 08-26-2023 ambulatory SABINA KAMARA [facility] Start: 05-07-2022 End: 05-08-[address] KALANI LOPEZ Facility:[facility] Start: 11-15-2021 Encounter for routin e child health examination without abnormal findings DR KALANI LOPEZ [facility] Start: 11-12-2021 End: 11-13-[address] KALANI LOPEZ Facility:[facility] Start: 11-12-2021 End: 11-13-2021 Encounter for routine child health examination without abnormal findings DR KALANI LOPEZ Facility:[facility] Procedures Date Procedure Procedure Detail Performing Clinician Start: 03-22-2024 Iaadiadoo streptococ cus group a Noel Dukes [facility] Work Phone: Plan of Treatment Date Care Activity Detail Author Start: 01-18-2024 COVID-19 Vaccine () COVID-19 Vaccine () [facility] Start: 01-18-2024 COVID-19 Vaccine ( season) COVID-19 Vaccine () [facility] Start: 01-18-2024 Influenza vaccination [facility] Start: 01-17-2023 COVID-19 Vaccine ( season) COVID-19 Vaccine ( season) [facility] Start: 12-29-2021 Hepatitis C screening Hepatitis C Screening [facility] Start: 12-29-2018 HIV screening HIV Screening [facility] Start: 12-29-2018 Vaccination for human papillomavirus HPV Vaccines (1 - 3-dose series) [facility] Start: 2015 Depression screening using PHQ-9 (Patient Health Questionnaire 9) score [facility] Start: 12-29-2006 History and physical examination, annual for health maintenance Wellness Visit [facility] Start: 2003 Screening for Chlamydia trachomatis Chlamydia Screening [facility] Start: 2003 Tetanus vaccination Tetanus: Every 10yrs [facility] XR Wrist - right 3 Views XR Wris t Right 3+ Views (Standard) [facility] Wrist injury, right, initial encounter 02/05/2024 3:27 PM EDT [facility] Work Phone: Payers Date Payer Category Payer Unknown [id number] 2003 Unknown [id number] 2003 Unknown [id number] 2003 Unknown [id number] 2003 Unknown [id number] 2003 Unknown [id number] 1969 Unknown [id number] 1959 Unknown [id number] Managed Care PPO (unspecified) [employer] PPO Member Subscriber Plan / Payer (Effective for All Dates) Name: Jaz Saleh Relation to Subscriber: Self Name: Jaz Saleh Payer ID: Not on file Group ID: Not on file Type: Not on file Address: [address] [id number] Unknown MMO [employer] S UPERMED PPO [id number] Effective for all dates [phone] [place], [place] [id number] Social History Date Type Detail Facility Start: 08-26-2023 Tobacco smoking status NHIS Never sm oked tobacco [facility] Start: 08-26-2023 Tobacco use and exposure Smokeless t obacco non-user [facility] Start: 08-26-2023 End: 03-22-2024 Alcohol intake Lifetime non-drinker (finding) [facility] Start: 2005 Sex Assigned At Not on file [facility] Start: 08-26-2023 End: 03-22-2024 Gender identity Not on file [facility] Start: 08-26-2023 End: 03-22-2024 History of Social function [facility] Start: 02-04-2024 Gender identity Identifies as female gender (finding) [facility] Start: 02-04-2024 Sexual orientation Heterosexual (fin jalil) [facility] Clinical Notes 08-26-2023 to 03-22-2024 Noel Dukes CNP - 03/22/2024 11:38 AM Vera Morrow CNP - 02/05/2024 3:36 PM EDTPatient Sabina Ball CNP - 08/26/2023 4:28 PM EDT Note Date & Type Note Facility 03-22-2024 Note PATIENT NAME: Jaz Saleh [facility] [address] [place] [id number] : 2005 DATE OF VISIT: 03/22/2024 SS#: [...] mg Lozg dextromethorphan-gua (more content not included)... [facility] 03-22-2024 History of Presen t illness Narrative PATIENT NAME: Jaz Saleh [facility] [address] [phone] : 2005 DATE OF VISIT: 03/22/2024 #: [...] for this visit. documented in this encounter [facility] 02-05-2024 Note Subjective: Patient ID: Jaz [...] AUTHENTICATED BY VERA LLAMAS ON 02/05/2024 15:38:22 [facility] 02-05-2024 History of Presen t [...] with no questions. documented in this encounter [facility] 02-05-2024 Instructions Vera Llamas CNP - 02/05/2024 3:30 PM EDT Images from the original note were not included. Preliminary xray interpretation shows no bone abnormalities. Likely sprain which can be sore for 4-6 weeks You will receive a final xray interpretation via [facility] within 24 hours If xray confirms broken [...] avoid damaging your skin with the ice. Mvhf-[id number] medication: Take an anti-inflammatory medication like ibuprofen (Motrin, Advil, and Aleve) or a pain reliever like acetaminophen (Tylenol). Continue bracing during your day for the next week Over the counter biofreeze can be used to help with discomfort documented in this encounter [facility] 08-26-2023 History of Presen t illness Narrative PATIENT NAME: Jaz Saleh [facility] [address] [place] [phone] : 2005 DATE OF VISIT: 08/26/2023 #: [...] for this visit. documented in this encounter [facility] Evaluation note Diagnosis Eustachian tube dysfunction, bilateral- [facility] Wrist [facility], right, initial encounter- Primary [facility] Diagnosis Acute pharyngitis, unspecified etiology- Primary Sore throat Acute pharyngitis [facility] Attachments The following attachments cannot be sent through Care Everywhere. * Eustachian Tube Problems ([place]) [facility]* Attachments The following attachments cannot be sent through Care Everywhere. * Sore Throat ([place]) [facility] Purpose Family History No Family History Records FoundNo Family History Records FoundNo Family History Records Found Advance Directives No Advanced Directives Records FoundNo Advanced Directives Records FoundNo Advanced Directives Records Found Additional Source Comments INFORMATION SOURCE (unrecogn ized section and content) DATE CREATED AUTHOR 05/15/2022 [facility] DATE CREATED AUTHOR AUTHOR'S ORGANIZ ATION 12/19/2023 [facility] EPIC DATE CREATED AUTHOR AUTHOR'S ORGANIZ ATION 03/23/2024 [facility] Reason for Visit (unrecogniz ed section and [...] Care Teams (unrecognized sec tion and content) Electrician Supervisor Airplane Relationship Specialty Start Date End Date System, Provider Not In PCP - General 08/26/23 Electrician Supervisor Airplane Relationship Specialty Start Date End Date System, [...] BE BASED ON THE PRIMARY CLINICAL RECORDS. [email or web address] provides no warranty or guarantee of the accuracy or completeness of information in this document.
== END 2024-05-05 20:05 | disposition home or self-care (01) ==
LOC: SLEEP 20:04
PROVIDERS: PCP Family Medicine; Visit Provider Family Medicine
DX: G47.33 Obstructive sleep apnea (adult) (pediatric) (principal)
CPT/HCPCS: 95811

== ENCOUNTER 2025-04-28 13:35 | Outpatient (OUT) | payer OTHER, SELFPAY ==
--- OUTSIDE RECORDS SUMMARY | 2025-04-28 13:41 | XMS_ITS | CCD ---
Author Organization [facility] Care Team Providers Care Vocational Teacher Name Role Phone DR KALANI HILLIARD Admitting Unavailable JOHN, DR URIARTE Attending Unavailable JOHN, DR URIARTE Primary Care Unavailable JOHN, DR URIARTE Consulting Unavailable JOHN, DR URIARTE Admitting Unavailable JOHN, DR URIARTE Attending Unavailable JOHN, DR URIARTE Primary Care Unavailable JOHN, DR URIARTE Consulting Unavailable System, Provider Not In Primary Care Provider Un available JULIAN GONZALES Attending Unavailable KALANI HILLIARD Referring Unavailable Kalani Hilliard MD Primary Care Provider [phone] TYLER SMITH Attending Unavailable KALANI HILLIARD Primary Care Unavailable PHILIP GARG Attending Unavailable KALANI HILLIARD Primary Care Unavailable SYSTEM, PROVIDER NOT IN Primary Care UnavailKEVIN Castañeda Attending Unavailabl e Medications Current Medications MedicationDrug Class(es)DatesSig (Normalized)Sig (Original)amoxicillin 875 mg oral tablet (1 source)Penicillin-class AntibacterialStart: 08-26-2023 End: 07-70-6626ooen 1 tablet by mouth twice dailyamoxicillin (AMOXIL) 875 MG tablet Take 1 (one) tablet (875 mg total) by mouth 2 (two) times a day for 7 days . 14 tablet 0 08/26/2023 09/02/2023 Activebenzocaine 15 mg / menthol 10 mg oral lozenge (1 source)Standardized Chemical AllergenStart: 03-22-2024 End: 74-91-3210atzbvgejbr-menthoL (Chloraseptic Max) 15-10 mg Lozg Indications: Acute pharyngitis, unspecified etiology 1 lozenge by Mucous Membrane route 4 (four) times a day as needed . 28 lozenge 03/22/2024 03/29/2024 Jwkyol87 hr desvenlafaxine succinate 100 mg extended release oral tablet (11 sources)Serotonin and Norepinephrine Reuptake InhibitorStart: 31-72-1093qapd 1 tablet by mouth once dailydesvenlafaxine succinate (PRISTIQ) 100 MG 24 hr tablet Take 1 (one) tablet (100 mg total) by mouth daily . 07/20/2023 Activetake 1 tablet by mouth once dailydesvenlafaxine succinate (PRISTIQ) 50 MG 24 hr tablet Take 1 (one) tablet (50 mg total) by mouth daily . Activetake 10 mg by mouth once dailydesvenlafaxine succinate (PRISTIQ PO) Take 10 mg by mouth once daily. Sujpqj83 hr dextromethorphan hydrobromide 60 mg / guaiFENesin 1200 mg extended release oral tablet (1 source)Uncompetitive A-mlfkxx-D-aspartate Receptor Antagonist, Sigma-1 AgonistStart: 03-22-2024 End: 56-47-8606ptld 1 tablet by mouth every hourdextromethorphan-guaiFENesin 60- 1,200 mg per 12 hr tablet Indications: Acute pharyngitis, unspecified etiology Take 1 (one) tablet by mouth every 12 (twelve) hours for 10 days . 20 tablet 03/22/2024 04/01/2024 Activefluticasone propionate 0.05 mg/actuat metered dose nasal spray (5 sources)CorticosteroidStart: 03-23-2025 End: 58-04-4929gxeb 1 spray(s) nasal route twice dailyfluticasone propionate (FLONASE) 50 mcg/actuation nasal spray Indications: Congestion of paranasal s inus Instill 1 (one) spray into each nostril 2 (two) times a day . 18.2 mL 03/23/2025 04/22/2025 ActiveStart: 08-26-2023 End: 81-87-4562cuov 2 spray(s) nasal route once dailyfluticasone propionate (FLONASE) 50 mcg/actuation nasal spray Instill 2 (two) sprays into each nostril daily . 16 g 12 08/26/2023 Activehyoscyamine sulfate 0.125 mg/ml oral solution (3 sources)Start: 11-82-6508QDFLOQWJDOP 0.125 MG/ML DROP Give 6 drops three times daily. 0 05/21/2004 Activenystatin 100 unt/mg topical powder (1 source)Polyene AntifungalStart: 11-25-2024 End: 45-01-1784ixxfoezb (MYCOSTATIN) powder Apply 1 application to affected area four times daily. 60 g 1 11/25/2024 12/25/2024 Nkgngt75 hr pseudoephedrine hydrochloride 120 mg extended release oral tablet (1 source)alpha-Adrenergic AgonistStart: 08-26-2023 End: 30-75-4049ezno 1 tablet by mouth every hourpseudoePHEDrine (SUDAFED) 120 mg 12 hr tablet Take 1 (one) tablet (120 mg total) by mouth every 12 (twelve) hours for 10 days . 20 tablet 0 08/26/2023 09/05/2023 Active Problems Active Problems Problem ClassificationProblemDateDocumented DateEpisodic/ChronicDeficiency and other anemia (1 source)Anemia, unspecified; Translations: [ANEMIA UNSPECIFIED]Onset: 71-41-8380LaewdqurRcfcqaq and fatigue (4 sources)Other fatigue; Translations: [OTHER FATIGUE]Onset: 43-83-7799Iydxyrti Nonmalignant breast conditions (3 sources)Large breast; Translations: [Hypertrophy of breast]Onset: 11-25-2024 87-69-5826WhtpjdsaBokwmchgnsq deficiencies (1 source)Vitamin D deficiency, unspecified; Translations: [VITAMIN D DEFICIENCY UNSPECIFIED]Onset: 58-57-3285WnjxoddCpfia inflammatory condition of skin (2 sources)Intertrigo; Translations: [Erythema intertrigo]79-40-5865Bnsjpseu Other inflammatory condition of skin (1 source)Erythema intertrigo; Translations: [Intertrigo]Onset: 11-25-2024 EpisodicOther injuries and conditions due to external causes (1 source)Injury of right wrist; Translations: [Unspecified injury of right wrist, hand and finger(s), initial encounter]58-37-7028EynvnieyJqamc nervous system disorders (2 sources)Other chronic pain; Translations: [Chronic bilateral low back pain without sciatica]Onset: 77-08-2723UwjlvjgLwhsv non-traumatic joint disorders (2 sources)Bilateral chronic pain of upper limbs; Translations: [Pain in right shoulder]97-29-2730ApkgefkmSlbir non-traumatic joint disorders (1 source)Pain in right shoulder; Translations: [Chronic pain of both shoulders] Onset: 80-97-3906HmefkklzFmbor non-traumatic joint disorders (1 source)Pain in left shoulder; Translations: [Chronic pain of both shoulders] Onset: 59-56-1112EqhmkstaGkfxk screening for suspected conditions (not mental disorders or infectious disease) (1 source)Encounter for screening for malignant neoplasm of rectum; Translations: [ENC SCREEN MALIG NEOPLASM RECTUM]Onset: 03-29-8597HnjrnsutRplay upper respiratory disease (1 source)Congestion of nasal sinus; Translations: [Nasal congestion]03-23-2025 EpisodicOther upper respiratory disease (2 sources)Nasal congestion; Translations: [Nasal congestion]Onset: 03-23-2025 EpisodicOther upper respiratory infections (5 sources)Sore throat symptom; Translations: [Acute pharyngitis, unspecified] Onset: [id number] media and related conditions (1 source)Dysfunction of bilateral eustachian tubes; Translations: [Unspecified Eustachian tube disorder, bilateral]63-25-4802XhfnwsgwEsgeblnniqq; intervertebral disc disorders; other back problems (5 sources)Neck pain; Translations: [Cervicalgia]Onset: EpisodicUnclassified (1 source)Chronic bilateral low back pain without sciatica; Translations: [Chronic bilateral low back pain without sciatica]Onset: 11-25-2024 Past or Other Problems Problem ClassificationProblemDateDocumented DateEpisodic/ChronicDiabetes mellitus without complication (1 source)Other abnormal glucose; Translations: [OTHER ABNORMAL GLUCOSE]Onset: 61-17-0614VbepuevxNyyuv and unspecified benign neoplasm (3 sources)Hemangioma of skin and subcutaneous tissue; Translations: [Hemangioma of skin and subcutaneous tissue]Onset: [id number] Results Test NameValueInterpretationReference RangeFacilityCNOVon 84-29-3779ZSHPQerpco Visit (PLASST) JAZ ARMSTRONG ([id number]) 1 F Date Time Provider Department 01/20/25 1:45 PM PHILIP GARG During your visit today, we recorded the following information about you: Philip Garg MD 01/20/2025 2:47 PM Signed BREAST REDUCTION EVALUATION CC: macromastia HPI: Jaz is a 19 year old female that presents today for breast reconstruction evaluation, she was previously seen by Tyler Smith CNP where 400 grams were estimated to be removed from each breast and this was approved. Surgery has not been scheduled at this time Pt c/o Macromastia Intertrigo Shoulder Pain Shoulder Grooves Neck Pain Lower back pain Others: Pt reports grooves from the band of the bra as well as bra straps Physical therapy or vehicle care specialist for pain and/or posturing maneuvers: number of months: no Home exercise: months tried: walking, stretching, 2 years NSAID use for more than 3 months: Type: ibuprofen, tylenol; Months tried: 2 years Skin ulceration: No Topical or oral antifungal agents: Type: deodorant, paper towels, shirt; Months tried: 2 years Participation in medically supervised weight loss program: No Weight reduction attempted: No previous attempt at weight loss Exercise: Yes, patient does walking, stretching reports no changes in breast symptoms Proper bra support and/or wide strap bras: yes, she has gotten measured for bras Prior breast surgeries: No PAIN: Yes 8 on a scale of 0 to 10. LOCATION: neck, shoulders, lowr back; CHARACTER: aching, dull, moderate, pressure, soreness, stiff, tight band, and cramping; DURATION: 5 months; FREQUENCY: occurs constantly. BRA SIZE: 36 G DESIRED SIZE: B, whatever is proportional WEIGHT REDUCTION ATTEMPTED: No previous attempt at weight loss EXERCISE: Yes, patient does stretching, walking, reports no changes in breast symptoms RECENT CHANGES REPORTED: Patient reports the following changes in breast symptoms: pt has been wanting a reduction for 2 years and she knows 2 friends who had breast reductions and they recommended the surgery OB HISTORY: PARA:No : Patient did not breastfeed PLAN FOR FUTURE PREGNANCIES: maybe HISTORY OF BREAST DISEASE: No patient history of previous breast disease PRIOR MAMMOGRAM: No FAMILY HISTORY OF BREAST CANCER: Yes: maternal great grandmother HISTORY OF BLEEDING/CLOTTING: no FAMILY HISTORY OF BLEEDING OR CLOTTING: no REVIEW OF SYSTEMS All negative except for: GENERAL: []weight loss []malaise []fevers HEENT: []frequent or significant headaches []changes in hearing []change in vision []nose bleeds []other nasal problems NECK: []lumps []goiter []pain and significant neck swelling RESPIRATORY: []cough []hemoptysis []wheezing []COPD []dyspnea []shortness of breath CARDIOVASCULAR: []chest pain []leg swelling []hypertension []CHF []palpitations GI: []nausea []vomiting []diarrhea MUSCULOSKELETAL: SEE HPI SKIN: [] skin lesions [x]rash [x]itching PSYCH: []sleep disturbance []mood disorder []recent psychosocial stressors HEMATOLOGY/LYMPHOLOGY: []prolonged bleeding []bruising easily []swollen nodes ENDOCRINE: []cold intolerance []heat intolerance []polyuria []polydipsia []goiter [] Diabetes No past medical history on file. No past surgical history on file. Current Outpatient Medications on File Prior to Visit Medication Sig desvenlafaxine succinate (PRISTIQ PO) Take 10 mg by mouth once daily. HYOSCYAMINE 0.125 MG/ML DROP Give 6 drops three times daily. No current facility-administered medications on file prior to visit. SMOKING HISTORY: Nonsmoker (Never Smoked) ETOH USE: None USE OF VITAMIN E, HERBS, ASA, NSAIDS: Yes MARITAL STATUS: Single EMPLOYMENT: Patient is employed occasional heavy lifting, pt is a college student as well EXAM: Height: 5'1 Wt: 152 There is no height or weight on file to calculate BSA. Back Exam: no scar; latissimus dorsi muscle function appears to be intact Abdominal Exam: Abdomen soft, non-tender. Bowel sounds normal. No masses, organomegaly Breast Exam: Asymmetry: Minimal Masses: no Axillary Lymphadenopathy: no Scars: no Note: measurements are in centimeters Note: measurements are in centimeters SN to NIPPLE: R: 26 L: 25.5 WIDTH: R: 16 L: 16 MIDLINE to NIPPLE: R: 11 L: 10.5 IMF to NIPPLE: R: 9.5 L: 10 Right breast is 10% larger than left breast PTOSIS: R: Grade III L: Grade III MEDIALLY DISPLACED NIPPLE: Mild ESTIMATED GRAMS OF TISSUE TO BE REMOVED: Left: 400 gms Right: 400 gms Assessment: Macromastia and back pain The patient is a good candidate for breast reduction with a simple technique. Photographs taken last office visit Planned procedure: bilateral breast reduction; I have discussed the procedure in detail with the patient and she agrees to the procedure understanding the roles and tasks of the (more content not included)...[facility] 66-22-8727AKMYAmihno Visit (PLASST) JAZ ARMSTRONG ([id number]) 1 F Date Time Provider Department 11/25/24 10:40 AM TYLER SMITH During your visit today, we recorded the following information about you: Weight Height 68.9 kg 1.549 m Tyler Smith APRN.CNP 11/25/2024 12:16 PM Signed BREAST REDUCTION EVALUATION CC: macromastia HPI: Pt c/o Macromastia Intertrigo Shoulder Pain Shoulder Grooves Neck Pain Lower back pain Others: Pt reports grooves from the band of the bra as well as bra straps Physical therapy or vehicle care specialist for pain and/or posturing maneuvers: number of months: no Home exercise: months tried: walking, stretching, 2 years NSAID use for more than 3 months: Type: ibuprofen, tylenol; Months tried: 2 years Skin ulceration: No Topical or oral antifungal agents: Type: deodorant, paper towels, shirt; Months tried: 2 years Participation in medically supervised weight loss program: No Weight reduction attempted: No previous attempt at weight loss Exercise: Yes, patient does walking, stretching reports no changes in breast symptoms Proper bra support and/or wide strap bras: yes, she has gotten measured for bras Prior breast surgeries: No PAIN: Yes 8 on a scale of 0 to 10. LOCATION: neck, shoulders, lowr back; CHARACTER: aching, dull, moderate, pressure, soreness, stiff, tight band, and cramping; DURATION: 5 months; FREQUENCY: occurs constantly. BRA SIZE: 36 G DESIRED SIZE: B, whatever is proportional WEIGHT REDUCTION ATTEMPTED: No previous attempt at weight loss EXERCISE: Yes, patient does stretching, walking, reports no changes in breast symptoms RECENT CHANGES REPORTED: Patient reports the following changes in breast symptoms: pt has been wanting a reduction for 2 years and she knows 2 friends who had breast reductions and they recommended the surgery OB HISTORY: PARA:No : Patient did not breastfeed PLAN FOR FUTURE PREGNANCIES: maybe HISTORY OF BREAST DISEASE: No patient history of previous breast disease PRIOR MAMMOGRAM: No FAMILY HISTORY OF BREAST CANCER: Yes: maternal great grandmother HISTORY OF BLEEDING/CLOTTING: no FAMILY HISTORY OF BLEEDING OR CLOTTING: no REVIEW OF SYSTEMS All negative except for: GENERAL: []weight loss []malaise []fevers HEENT: []frequent or significant headaches []changes in hearing []change in vision []nose bleeds []other nasal problems NECK: []lumps []goiter []pain and significant neck swelling RESPIRATORY: []cough []hemoptysis []wheezing []COPD []dyspnea []shortness of breath CARDIOVASCULAR: []chest pain []leg swelling []hypertension []CHF []palpitations GI: []nausea []vomiting []diarrhea MUSCULOSKELETAL: SEE HPI SKIN: [] skin lesions [x]rash [x]itching PSYCH: []sleep disturbance []mood disorder []recent psychosocial stressors HEMATOLOGY/LYMPHOLOGY: []prolonged bleeding []bruising easily []swollen nodes ENDOCRINE: []cold intolerance []heat intolerance []polyuria []polydipsia []goiter [] Diabetes No past medical history on file. No past surgical history on file. Current Outpatient Medications on File Prior to Visit Medication Sig HYOSCYAMINE 0.125 MG/ML DROP Give 6 drops three times daily. No current facility-administered medications on file prior to visit. SMOKING HISTORY: Nonsmoker (Never Smoked) ETOH USE: None USE OF VITAMIN E, HERBS, ASA, NSAIDS: Yes MARITAL STATUS: Single EMPLOYMENT: Patient is employed occasional heavy lifting, pt is a college student as well EXAM: Height: 5'1 Wt: 152 Body surface area is 1.72 meters squared. LMP 11/20/24 Back Exam: no scar; latissimus dorsi muscle function appears to be intact Abdominal Exam: Abdomen soft, non-tender. Bowel sounds normal. No masses, organomegaly Breast Exam: Asymmetry: Minimal Masses: no Axillary Lymphadenopathy: no Scars: no Note: measurements are in centimeters SN to NIPPLE: R: 27 L: 28 WIDTH: R: 15 L: 16 IMF to NIPPLE: R: 10 L: 10 PTOSIS: R: Grade III L: Grade III MEDIALLY DISPLACED NIPPLE: Mild ESTIMATED GRAMS OF TISSUE TO BE REMOVED: Left: 400 gms Right: 400 gms Assessment: Macromastia and back pain The patient is a good candidate for breast reduction with a simple technique. Photographs have been taken and will be sent to the insurance company as necessary. Plan: Planned procedure: bilateral breast reduction; I have discussed the procedure in detail with the patient and she agrees to the procedure understanding the roles and tasks of the personnel to be involved; the alternatives to the procedure to include liposuction or observation. She understands the risks to include but not be limited to infection, bleeding, pain, scar, need for re-operation, recurrence, asymmetry, loss of flap, loss of nipple, loss of nipple height, nipple sensation change, inability to breast feed, poor aesthetic resul (more content not included)...[facility] Rapid Strep AOrdered By: Sakina Boswell on 88-99-7807Cvjhuxgoaehnve and review of laboratory resultsNormalOhioHealthS. pyogenes Ag Ql (Throat)Negative NegativeOhioHealthOhioHealthINSULINon 59-82-5506Zpihszl48.7 uIU/mLNormal2.6-24.9 The OhiohealthComment on above:Performed By: #### INSULIN #### [facility] [address] [address] [address] Charan PattenUOFL HEALTH [facility] AUTO DIFFon 11-09-4282TETS #0.0 103/ulNormal0.0-0.1The OhiohealthComment on above:Performed By: #### CBC #### [facility] [address] [address] [address] Charan PattenBasophils/100 WBC (Bld)0.7 %Normal0.2-2.0The [facility] Comment on above:Performed By: #### CBC #### [facility] [address] [address] [address] Charan Ma #0.1 103/ulNormal0.0-0.7The OhiohealthComment on above: Performed By: #### CBC #### [facility] [address] [address] [address] Charan Pradhanosinophils/100 WBC (Bld)1.7 %Normal0.9-7.0The [facility] Comment on above:Performed By: #### CBC #### [facility] [address] [place] [address] Dr. Charan Pradhanrythrocyte distribution width (RBC) [Ratio]13.1 %Vuxiaj27.0-15.0 The OhiohealthComment on above:Performed By: #### CBC #### [facility] [address] [place] [address] Dr. Charan PattenHematocrit (Bld) [Volume fraction]39.7 %Xgysgy87.0-48.0The OhiohealthComment on above:Performed By: #### CBC #### [facility] [address] [place] [address] Dr. Charan PattenHemoglobin (Bld) [Mass/Vol]13.3 g/rWOdgsrk12.0-16.0The OhiohealthComment on above:Performed By: #### CBC #### [facility] [address] [place] [address] Dr. Charan Diamond #0.02 10e3/ulNormal0.00-0.03The OhiohealthComment on above:Performed By: #### CBC #### [facility] [address] [place] [address] Dr. Charan Diamond %0.3 %Normal0.0-0.5The OhiohealthComment on above: Performed By: #### CBC #### [facility] [address] [address] [address] Charan Schwab #1.8 103/ulNormal1.2-3.8The OhiohealthComment on above:Performed By: #### CBC #### [facility] [address] [address] [address] Charan Claytonhocytes/100 WBC (Bld)30.0 %Ofojqs31.5-60.0The OhiohealthComment on above:Performed By: #### CBC #### [facility] [address] [place] [address] Dr. Charan Mahoney DIFF REQNONormalThe OhiohealthComment on above: Performed By: #### CBC #### [facility] [address] [place] [address] Dr. Charan Kelsey (RBC) [Entitic mass]29.2 nqPvksmg53.7-34.0The [facility]ment on above:Performed By: #### CBC #### [facility] [address] [place] [address] Dr. Charan López (RBC) [Mass/Vol]33.5 g/tFVijffb97.9-35.2The [facility] on above:Performed By: #### CBC #### [facility] [address] [place] [address] Dr. Charan López (RBC) [Entitic vol]87.1 hYOnyslz66.0-99.0The [facility] on above:Performed By: #### CBC #### [facility] [address] [place] [address] Dr. Charan Davis #0.6 103/ulNormal0.3-0.8The [facility] on above:Performed By: #### CBC #### [facility] [address] [address] [address] Charan Noelocytes/100 WBC (Bld)9.8 %Normal1.7-12.0The [facility] Comment on above:Performed By: #### CBC #### [facility] [address] [address] [address] Charan Duncan #3.4 103/ulNormal1.4-6.5The OhiohealthComment on above:Performed By: #### CBC #### [facility] [address] [address] [address] Charan Brantleyutrophils/100 WBC (Bld)57.5 %Puzmuh51.0-75.0The OhiohealthComment on above:Performed By: #### CBC #### [facility] [address] [place] [address] Dr. Charan Colinlet mean volume (Bld) [Entitic vol]10.4 fLNormal9.5-13.5The OhiohealthComment on above:Performed By: #### CBC #### [facility] [address] [place] [address] Dr. Charan PattenPLT268 103/vbKzfxwi609-971Gaf OhiohealthComment on above: Performed By: #### CBC #### [facility] [address] [place] [address] Dr. Charan PattenRBC4.56 106/ulNormal4.20-5.40The OhiohealthComment on above:Performed By: #### CBC #### [facility] [address] [place] [address] Dr. Charan PattenWBC5.9 103/ulNormal4.0-11.0The OhiohealthComment on above: Performed By: #### CBC #### [facility] [address] [place] [address] Dr. Charan Lorenzo THYROXINE INDEX T7on 70-26-9112QVM6.76Fotqhq9.30-4.50The OhiohealthComment on above:Performed By: #### LIPID, T7, TSH, CMP #### [facility] [address] [place] [address] Dr. Charan PattenT3U32.0 %Zuhmdp56.0-39.0The OhiohealthComment on above: Performed By: #### LIPID, T7, TSH, CMP #### [facility] [address] [address] [address] Charan PattenT4 [Mass/Vol]6.60 ug/dLNormal5.40-10.60The [facility] Comment on above:Performed By: #### LIPID, T7, TSH, CMP #### [facility] [address] [address] [address] Charan PattenGLYCOHEMOGLOBIN A1Con 02-57-9563JKC RECOMMENDATIONSEE BELOWMercy Health Kings Mills HospitalComment on above:Result Comment: ADA RECOMMENDED LIMIT 4.0 - 6.0 ADA THERAPEUTIC TARGET < 7.0 ACTION SUGGESTED > 7.0Performed By: #### A1C #### [facility] [address] [place] [address] Dr. Charan PattenGlucose [Mass/Vol]94 mg/dLNoCrystal Clinic Orthopedic CenterComment on above:Performed By: #### A1C #### [facility] [address] [place] [address] Dr. Charan PattenHbA1c (Bld) [Mass fraction]4.9 %Normal4.5-6.2The OhiohealthComment on above:Performed By: #### A1C #### [facility] [address] [place] [address] Dr. Charan Baez 50-04-4726Eswg [Mass/Vol]140.0 ug/cRRrxahs49.0-170.0The OhiohealthComment on above:Performed By: #### LIPID, T7, TSH, CMP #### [facility] [address] [place] [address] Dr. Charan PattenLIPID PROFILEon 36-22-4595XARW-HDL RATIO NORMSEE BELOWDoctors HospitalCompontiac general hospital on above:Result Comment: 3.3 - 4.4 LOW RISK 4.4 - 7.1 AVERAGE RISK 7.1 - 11.0 MODERATE RISK >11.0 HIGH RISKPerformed By: #### LIPID, T7, TSH, CMP #### [facility] [address] [address] [address] Charan PattenCholesterol [Mass/Vol]176 mg/qJEmsfxy720-872Rjs [facility] Comment on above:Performed By: #### LIPID, T7, TSH, CMP #### [facility] [address] [address] [address] Charan Membrenoesterol in HDL [Mass/Vol]70 mg/dLCritically jlpt15-35Uqr OhiohealthComment on above:Performed By: #### LIPID, T7, TSH, CMP #### [facility] [address] [address] [address] Charan Membrenoesterol in LDL [Mass/Vol]88.2 mg/pDTjebgm84.0-140.0The OhiohealthComment on above:Performed By: #### LIPID, T7, TSH, CMP #### [facility] [address] [address] [address] Charan Fry.total/Cholesterol in HDL [Mass ratio]2.5 {ratio} NormalThe OhiohealthComment on above:Performed By: #### LIPID, T7, TSH, CMP #### [facility] [address] [address] [address] Charan Dasilva NORMAL> or = 60 mg/dl - LOW CARDIOVASCULAR RISK <40 mg/dl - HIGH CARDIOVASCULAR RISKDoctors HospitalComment on above:Performed By: #### LIPID, T7, TSH, CMP #### [facility] [address] [address] [address] Charan PattenLDL CALC NORMALSEE BELOWNoCrystal Clinic Orthopedic CenterComment on above:Result Comment: <100 mg/dl OPTIMAL 100 - 129 mg/dl NEAR OR ABOVE OPTIMAL 130 - 159 mg/dl BORDERLINE HIGH 160 - 189 mg/dl HIGH >190 mg/dl VERY HIGH Performed By: #### LIPID, T7, TSH, CMP #### [facility] [address] [address] [address] Charan PattenTriglyceride [Mass/Vol]89 mg/bUTbcqaf03-499Uzg [facility] Comment on above:Performed By: #### LIPID, T7, TSH, CMP #### [facility] [address] [address] Dr. Charan PattenVLDL CALC17.8 mg/dLNormalThe OhiohealthComment on above: Performed By: #### LIPID, T7, TSH, CMP #### [facility] [address] [address] [address] Charan PattenOCC BLD IMMUNO SCREENon 68-96-9433VUODLP BLOODNegativeNormal NEGATIVEThe OhiohealthComment on above:Performed By: #### OBSCRN #### [facility] [address] [address] [address] Charan Camara 14(COMP METB)on 10-38-7925Rywryso [Mass/Vol]4.5 g/dLNormal 3.4-5.0The OhiohealthComment on above:Performed By: #### LIPID, T7, TSH, CMP #### [facility] [address] [place] [address] Dr. Charan PattenAlbumin/Globulin [Mass ratio]1.3 {ratio}NormalThe OhiohealthComment on above:Performed By: #### LIPID, T7, TSH, CMP #### [facility] [address] [place] [address] Dr. Charan Toussaint [Catalytic activity/Vol]74 U/UKodfrq92-925Jfj OhiohealthComment on above:Performed By: #### LIPID, T7, TSH, CMP #### [facility] [address] [place] [address] Dr. Charan Knox [Catalytic activity/Vol]39 U/TDxkmfs10-39Yli OhiohealthComment on above:Performed By: #### LIPID, T7, TSH, CMP #### [facility] [address] [place] [address] Dr. Charan Collier gap [Moles/Vol]14.4 mmol/LNormalThe [facility] Comment on above:Performed By: #### LIPID, T7, TSH, CMP #### [facility] [address] [address] [address] Charan PattenAST [Catalytic activity/Vol]30 U/NYunflm14-45Lnj OhiohealthComment on above:Performed By: #### LIPID, T7, TSH, CMP #### [facility] [address] [address] [address] Charan PattenBilirubin [Mass/Vol]0.5 mg/dLNormal0.2-1.0The [facility] Comment on above:Performed By: #### LIPID, T7, TSH, CMP #### [facility] [address] [address] [address] Charan PattenCalcium [Mass/Vol]9.1 mg/dLNormal8.5-10.1The [facility] Comment on above:Performed By: #### LIPID, T7, TSH, CMP #### [facility] [address] [place] [address] Dr. Charan PattenChloride [Moles/Vol]102 mmol/GNtyhwt69-033Fxb [facility] Comment on above:Performed By: #### LIPID, T7, TSH, CMP #### [facility] [address] [address] [address] Charan PattenCO2 [Moles/Vol]23.8 mmol/XVtvqae13.0-32.0The [facility] Comment on above:Performed By: #### LIPID, T7, TSH, CMP #### [facility] [address] [address] [address] Charan PattenCreatinine [Mass/Vol]0.73 mg/dLNormal0.55-1.02The OhiohealthComment on above:Performed By: #### LIPID, T7, TSH, CMP #### [facility] [address] [place] [address] Dr. Charan PradhanGFR-AF MACANESE>60Normal>=60The OhiohealthComment on above:Performed By: #### LIPID, T7, TSH, CMP #### [facility] [address] [address] [address] Charan PradhanGFR-NON AF MACANESE>60Normal>=60The OhiohealthComment on above:Performed By: #### LIPID, T7, TSH, CMP #### [facility] [address] [place] [address] Dr. Charan PattenGlobulin (S) [Mass/Vol]3.4 g/dLNormTriHealth [facility]hes[facility] Butler HospitalComment on above:Performed By: #### LIPID, T7, TSH, CMP #### [facility] [address] [place] [address] Dr. Charan PattenGlucose [Mass/Vol]90 mg/aHSvwzto75-731Doh [facility] Comment on above:Performed By: #### LIPID, T7, TSH, CMP #### [facility] [address] [place] [address] Dr. Charan PattenPotassium [Moles/Vol]4.2 mmol/LNormal3.5-5.1The [facility] Comment on above:Performed By: #### LIPID, T7, TSH, CMP #### [facility] [address] [place] [address] Dr. Charan PattenProtein [Mass/Vol]7.9 g/dLNormal6.4-8.2[facility] Comment on above:Performed By: #### LIPID, T7, TSH, CMP #### [facility] [address] [place] [address] Dr. Charan PattenSodium [Moles/Vol]136 mmol/XGmxbap251-593Pft[facility] Comment on above:Performed By: #### LIPID, T7, TSH, CMP #### [facility] [address] [place] [address] Dr. Charan PattenUrea nitrogen [Mass/Vol]10.0 mg/dLNormal6.4-19.3The OhiohealthComment on above:Performed By: #### LIPID, T7, TSH, CMP #### [facility] [address] [place] [address] Dr. Charan PattenUrea nitrogen/Creatinine [Mass ratio]13.7 mg/mgNoCrystal Clinic Orthopedic CenterComment on above:Performed By: #### LIPID, T7, TSH, CMP #### [facility] [address] [address] [address] Charan Montano 90-96-4187CIK7.580 uIU/mLNormal0.516-4.130The OhiohealthComment on above:Performed By: #### LIPID, T7, TSH, CMP #### [facility] [address] [place] [address] Dr. Charan PattenVITAMIN D 25 OHon 53-21-4626KMF D 25-OH14.3 ng/mLNormalThe OhiohealthComment on above:Performed By: #### LIPID, T7, TSH, CMP #### [facility] [address] [place] [address] Dr. Charan Coleman RANGESSEMercy Health Kings Mills HospitalComment on above: Result Comment: <20 ng/mL Vit D deficient 20 - <30 ng/mL Vit D insufficient 30 - 100 ng/mL Vit D sufficient >100 ng/mL Potential ToxicityPerformed By: #### LIPID, T7, TSH, CMP #### [facility] [address] [place] [address] Dr. Charan PattenINSULINon 57-27-1170Cfjmxxs59.5 uIU/mLCritically high2.6-24.9The OhiohealthComment on above:Performed By: #### LIPID, T7, TSH, CMP #### [facility] [address] [place] [address] Dr. Charan Bardales AUTO DIFFon 33-65-3351LWTJ #0.1 103/ulNormal0.0-0.1The OhiohealthComment on above:Performed By: #### CBC #### [facility] [address] [place] [address] Dr. Charan Mckinneysophils/100 WBC (Bld)0.9 %Normal0.2-2.0[facility] Comment on above:Performed By: #### CBC #### [facility] [address] [place] [address] Dr. Charan Ma #0.0 103/ulNormal0.0-0.7The OhiohealthComment on above: Performed By: #### CBC #### [facility] [address] [place] [address] Dr. Charan Pradhanosinophils/100 WBC (Bld)0.4 %Critically low0.9-7.0The OhiohealthComment on above:Performed By: #### CBC #### [facility] [address] [place] [address] Dr. Charan Pradhanrythrocyte distribution width (RBC) [Ratio]14.8 %Bgbdcu19.0-15.0 The OhiohealthComment on above:Performed By: #### CBC #### [facility] [address] [place] [address] Dr. Charan PattenHematocrit (Bld) [Volume fraction]39.1 %Dmieot16.0-48.0The OhiohealthComment on above:Performed By: #### CBC #### [facility] [address] [place] [address] Dr. Charan PattenHemoglobin (Bld) [Mass/Vol]12.6 g/wTByryrq14.0-16.0The OhiohealthComment on above:Performed By: #### CBC #### [facility] [address] [place] [address] Dr. Charan Diamond #0.08 10e3/ulCritically high0.00-0.03The [facility] Comment on above:Performed By: #### CBC #### [facility] [address] [place] [address] Dr. Charan Diamond %1.5 %Critically high0.0-0.5The OhiohealthComment on above:Performed By: #### CBC #### [facility] [address] [place] [address] Dr. Charan Schwab #1.3 103/ulNormal1.2-3.8The OhiohealthComment on above:Performed By: #### CBC #### [facility] [address] [place] [address] Dr. Yilan ChangLymphocytes/100 WBC (Bld)25.1 %Npisnv64.5-60.0The OhiohealthComment on above:Performed By: #### CBC #### [facility] [address] [place] [address] Dr. Charan Mahoney DIFF REQNONormalThe OhiohealthComment on above: Performed By: #### CBC #### [facility] [address] [place] [address] Dr. Charan López (RBC) [Entitic mass]26.8 ggOpkzgi69.7-34.0The [facility] HospitalComment on above:Performed By: #### CBC #### [facility] [address] [place] [address] Dr. Charan López (RBC) [Mass/Vol]32.2 g/yXUmrfoh66.9-35.2The OhiohealthComment on above:Performed By: #### CBC #### [facility] [address] [place] [address] Dr. Charan Barrett (RBC) [Entitic vol]83.2 hUXokggv07.1-95.6The OhiohealthComment on above:Performed By: #### CBC #### [facility] [address] [place] [address] Dr. Charan Davis #0.6 103/ulNormal0.3-0.8The OhiohealthComment on above:Performed By: #### CBC #### [facility] [address] [place] [address] Dr. Charan Noelocytes/100 WBC (Bld)10.9 %Normal1.7-12.0The [facility] Comment on above:Performed By: #### CBC #### [facility] [address] [place] [address] Dr. Charan Duncan #3.2 103/ulNormal1.4-6.5The OhiohealthComment on above:Performed By: #### CBC #### [facility] [address] [place] [address] Dr. Yilan ChangNeutrophils/100 WBC (Bld)61.2 %Dccwqo36.0-75.0The OhiohealthComment on above:Performed By: #### CBC #### [facility] [address] [address] [address] Charan Pike mean volume (Bld) [Entitic vol]10.7 fLNormal9.5-13.5The OhiohealthComment on above:Performed By: #### CBC #### [facility] [address] [place] [address] Dr. Charan PattenPLT297 103/aiYhdqjf736-366Nkp OhiohealthComment on above: Performed By: #### CBC #### [facility] [address] [place] [address] Dr. Charan PattenRBC4.70 106/ulNormal3.40-5.30The [facility]ment on above:Performed By: #### CBC #### [facility] [address] [place] [address] Dr. Charan PattenWBC5.3 103/ulNormal4.0-11.0The OhiohealthComment on above: Performed By: #### CBC #### [facility] [address] [place] [address] Dr. Charan Lorenzo THYROXINE INDEX T7on 23-64-6166YGA0.02Nxqshk3.30-4.50The [facility] on above:Performed By: #### LIPID, T7, TSH, CMP #### [facility] [address] [place] [address] Dr. Charan PattenT3U30.0 %Mwyvbi68.0-39.0The [facility] on above: Performed By: #### LIPID, T7, TSH, CMP #### [facility] [address] [place] [address] Dr. Charan PattenT4 [Mass/Vol]7.90 ug/dLNormal5.40-10.60The [facility] Comment on above:Performed By: #### LIPID, T7, TSH, CMP #### [facility] [address] [place] [address] Dr. Charan PattenGLYCOHEMOGLOBIN A1Con 94-92-2204HJU RECOMMENDATIONSEE BELOWNormal The [facility] on above:Result Comment: ADA RECOMMENDED LIMIT 4.0 - 6.0 ADA THERAPEUTIC TARGET < 7.0 ACTION SUGGESTED > 7.0Performed By: #### A1C #### [facility] [address] [place] [address] Dr. Charan PattenGlucose [Mass/Vol]105 mg/dLNormalThe [facility]Comp[facility] on above:Performed By: #### A1C #### [facility] [address] [place] [address] Dr. Charan PattenHbA1c (Bld) [Mass fraction]5.3 %Normal4.5-6.2The OhiohealthComment on above:Performed By: #### A1C #### [facility] [address] [place] [address] Dr. Charan Baez 77-74-4294Wklj [Mass/Vol]44.0 ug/dLCritically low 50.0-170.0The [facility] on above:Performed By: #### LIPID, T7, TSH, CMP #### [facility] [address] [place] [address] Dr. Charan PattenPROKatina 14(COMP METB)on 34-50-9541Kmhwjme [Mass/Vol]4.3 g/dLNormal 3.4-5.0The [facility] on above:Performed By: #### LIPID, T7, TSH, CMP #### [facility] [address] [place] [address] Dr. Charan PattenAlbumin/Globulin [Mass ratio]1.1 {ratio}NormalThe [facility] on above:Performed By: #### LIPID, T7, TSH, CMP #### [facility] [address] [place] [address] Dr. Chraan PattenALP [Catalytic activity/Vol]74 U/HXduhxr20-101Hku [facility] on above:Performed By: #### LIPID, T7, TSH, CMP #### [facility] [address] [address] [address] Charan Knox [Catalytic activity/Vol]36 U/ZGgxuny10-76Irs OhiohealthComment on above:Performed By: #### LIPID, T7, TSH, CMP #### [facility] [address] [place] [address] Dr. Charan Collier gap [Moles/Vol]11.9 mmol/LNormalThe [facility] Comment on above:Performed By: #### LIPID, T7, TSH, CMP #### [facility] [address] [place] [address] Dr. Charan PattenAST [Catalytic activity/Vol]21 U/FIappje88-69Zeg OhiohealthComment on above:Performed By: #### LIPID, T7, TSH, CMP #### [facility] [address] [place] [address] Dr. Charan PattenBilirubin [Mass/Vol]0.2 mg/dLNormal0.2-1.0[facility] Comment on above:Performed By: #### LIPID, T7, TSH, CMP #### [facility] [address] [place] [address] Dr. Charan PattenCalcium [Mass/Vol]9.0 mg/dLNormal8.5-10.1[facility] Comment on above:Performed By: #### LIPID, T7, TSH, CMP #### [facility] [address] [place] [address] Dr. Charan PattenChloride [Moles/Vol]104 mmol/TMnzsuy02-519Ypo [facility] Comment on above:Performed By: #### LIPID, T7, TSH, CMP #### [facility] [address] [place] [address] Dr. Charan PattenCO2 [Moles/Vol]25.7 mmol/CCkcnqu21.0-32.0[facility] Comment on above:Performed By: #### LIPID, T7, TSH, CMP #### [facility] [address] [place] [address] Dr. Charan PattenCreatinine [Mass/Vol]0.69 mg/dLNormal0.55-1.02The OhiohealthComment on above:Performed By: #### LIPID, T7, TSH, CMP #### [facility] [address] [address] [address] Charan PattenGlobulin (S) [Mass/Vol]3.8 g/dLNormTriHealth [facility]hesda Butler HospitalComment on above:Performed By: #### LIPID, T7, TSH, CMP #### [facility] [address] [address] [address] Charan PattenGlucose [Mass/Vol]87 mg/bROnhwzv84-481Pkc [facility] Comment on above:Performed By: #### LIPID, T7, TSH, CMP #### [facility] [address] [place] [address] Dr. Charan PattenPotassium [Moles/Vol]4.5 mmol/LNormal3.5-5.1The [facility] Comment on above:Performed By: #### LIPID, T7, TSH, CMP #### [facility] [address] [address] [address] Charan PattenProtein [Mass/Vol]8.1 g/dLNormal6.4-8.2The [facility] Comment on above:Performed By: #### LIPID, T7, TSH, CMP #### [facility] [address] [place] [address] Dr. Charan PattenSodium [Moles/Vol]137 mmol/TVihyjx985-653Qgm [facility] Comment on above:Performed By: #### LIPID, T7, TSH, CMP #### [facility] [address] [place] [address] Dr. Charan PattenUrea nitrogen [Mass/Vol]11.0 mg/dLNormal6.4-19.3The OhiohealthComment on above:Performed By: #### LIPID, T7, TSH, CMP #### [facility] [address] [place] [address] Dr. Charan PattenUrea nitrogen/Creatinine [Mass ratio]15.9 mg/mgNoWhite Hospital on above:Performed By: #### LIPID, T7, TSH, CMP #### [facility] [address] [address] [address] Charan Motnano 84-03-5753VWF1.581 uIU/mLNormal0.516-4.130The [facility] on above:Performed By: #### LIPID, T7, TSH, CMP #### [facility] [address] [place] [address] Dr. Charan PattenVITAMIN B12on 57-17-7320Wdhlilnxv (Vitamin B12) [Mass/Vol]205.0 pg/fIBzbcmx065.0-986.0The [facility] on above:Performed By: #### LIPID, T7, TSH, CMP #### [facility] [address] [place] [address] Dr. Charan PattenVITAMIN D 25 OHon 48-23-4725QIY D 25-OH16.5 ng/mLNormalThe [facility] on above:Performed By: #### LIPID, T7, TSH, CMP #### [facility] [address] [place] [address] Dr. Charan ROGERS [facility] on above: Result Comment: <20 ng/mL Vit D deficient 20 - <30 ng/mL Vit D insufficient 30 - 100 ng/mL Vit D sufficient >100 ng/mL Potential ToxicityPerformed By: #### LIPID, T7, TSH, CMP #### [facility] [address] [place] [address] Dr. Charan Patten Vital Signs Date TimeVital SignValuePerforming ZjoltnstjLfihququ48-82-2020 16:50-0500 Diastolic blood mm[Hg]Kevin Herzog TACTICAL/MOBILE WATCH OFFICER Work Phone: [phone]dvuax31-16-4456 16:50-0500Systolic blood pressure 131 mm[Hg]Kevin Herzog TACTICAL/MOBILE WATCH OFFICER Work Phone: [phone]erwyq53-57-8712 16:48-0500Body .5 cm Kevin Herzog TACTICAL/MOBILE WATCH OFFICER Work Phone: [phone]vzqyr72-37-0705 16:48-0500Body mass index (BMI) [Ratio]26.34 kg/j5FbwemcKevin Herzog TACTICAL/MOBILE WATCH OFFICER Work Phone: [phone]) [phone]veaus46-45-3340 16:48-0500Body aiqsbgazaww17.49 [degF]Kevin Herzog TACTICAL/MOBILE WATCH OFFICER Work Phone: [phone]qttfz98-34-1040 16:48-0500Body rlwjen48.32 kg Kevin Herzog TACTICAL/MOBILE WATCH OFFICER Work Phone: [phone]) [phone]pfrph25-31-5764 16:48-0500Heart rate98 /minKevin Herzog [facility] Work Phone: [phone]) [phone]kgmrs71-70-4669 16:48-3736HoJ5% (BldA) [Mass fraction]100 %Kevin Herzog [facility] Work Phone: [phone]pleqg28-65-0273 10:42-0400Body gsyqvz635.9 cm Tyler Smith APRN.TACTICAL/MOBILE WATCH OFFICER Work Phone: [facility]07-10-2025 10:42-0400Body mass index (BMI) [Ratio]28.72 kg/b2PkwdjTyler Smith APRN.TACTICAL/MOBILE WATCH OFFICER Work Phone: [facility]07-10-2025 10:42-0400Body .95 kgTyler Smith APRN.TACTICAL/MOBILE WATCH OFFICER Work Phone: [facility]11-04-2024 11:28-0500Body temperature 98.4 [degF]Sylvia Harris TACTICAL/MOBILE WATCH OFFICER Work Phone: [phone]zmiwt80-73-1047 11:28-0500Diastolic blood rpzuytmq71 mm[Hg]Sylvia Harris [facility] Work Phone: [phone]ghyox81-51-1622 11:28-0500Heart sowp281 /min Sylvia Harris [facility] Work Phone: 1(678) [phone]yijwi79-05-1306 11:28-3379ZbV9% (BldA) [Mass fraction]98 %Sylvia Harris TACTICAL/MOBILE WATCH OFFICER Work Phone: [phone]yhnyr64-66-6664 11:28-0500Systolic blood pressure 127 mm[Hg]Sylvia Harris TACTICAL/MOBILE WATCH OFFICER Work Phone: 1([phone]stzif63-28-4587 14:51-0400Body ukoezx221.9 cm Vera Llamas TACTICAL/MOBILE WATCH OFFICER Work Phone: [phone]iubor58-47-0587 14:51-0400Body mass index (BMI) [Ratio]28.34 kg/r3YatfqVera Llamas TACTICAL/MOBILE WATCH OFFICER Work Phone: [phone]vrdsk00-07-5369 14:51-0400Body bsyugwwxifd73.29 [degF]Vera Llamas TACTICAL/MOBILE WATCH OFFICER Work Phone: [phone]) [phone]xsoju36-17-4872 14:51-0400Body btfmah42.04 kg Vera Llamas TACTICAL/MOBILE WATCH OFFICER Work Phone: 1(535) [phone]znpve18-40-3860 14:51-0400Diastolic blood mbzbpttu37 mm[Hg]Vera Llamas TACTICAL/MOBILE WATCH OFFICER Work Phone: [phone]dxrbl25-73-7596 14:51-0400Heart rate86 /minVera Llamas TACTICAL/MOBILE WATCH OFFICER Work Phone: 1([phone]iokna15-52-8218 14:51-1869PpB9% (BldA) [Mass fraction]97 %Vera Llamas TACTICAL/MOBILE WATCH OFFICER Work Phone: [phone]rswfj01-33-8047 14:51-0400Systolic blood pressure 121 mm[Hg]Vera Llamas TACTICAL/MOBILE WATCH OFFICER Work Phone: [phone]lzsnj75-33-2290 16:20-0400Body .9 cm Sabinamary Kamara TACTICAL/MOBILE WATCH OFFICER Work Phone: [phone]) [phone]gfymp85-43-0851 16:20-0400Body mass index (BMI) [Ratio]26.45 kg/h4Eudkovjjj Anh TACTICAL/MOBILE WATCH OFFICER Work Phone: [phone]) [phone]rxywn38-90-4063 16:20-0400Body qjonzhocyeo25.59 [degF]Sabina Kamara [facility] Work Phone: [phone]gcvzu87-66-2131 16:20-0400Body fumylr69.5 kg Sabina Kamara [facility] Work Phone: [phone]) [phone]rwrgt98-33-6338 16:20-0400Diastolic blood uadjeqfm55 mm[Hg]Sabina Kamara [facility] Work Phone: [phone]) [phone]ppzto80-03-8986 16:20-0400Heart cord643 /min Sabina Kamara [facility] Work Phone: 1([phone]hvsrb20-24-6789 16:20-3622DlM8% (BldA) [Mass fraction]97 %Sabina Kamara [facility] Work Phone: [phone]hqdzr25-26-1216 16:20-0400Systolic blood pressure 126 mm[Hg]Sabina Kamara [facility] Work Phone: [facility] Encounters Encounter DateEncounter TypeCare ProviderFacilityStart: 03-23-2025 End: 45-21-9621deorozpbgzJYNYSREL NOT IN [facility] CareStart: 03-23-2025 End: 65-45-0501Lclydj [facility]og [facility] Work Phone: [facility] Comment on above:Upper respiratory tract infection, unspecified type (Primary Dx); Congestion of paranasal sinusStart: 01-20-2025 End: 18-05-0111wqvvyfihyrBFALRS BERNARDFacility:[facility] Hospitaltart: 01-20-2025 End: 80-69-4838Candvmx encounter procedureStepadmini Garg MD Work Phone: Plastic SurgeryComment on above:Macromastia (Primary Dx); Neck pain; Intertrigo; Chronic bilateral low back pain without sciatica; Chronic pain of both shouldersStart: 11-25-2024 End: 88-39-1960Gmmxg Sandhya Garg MD Work Phone: Plastic SurgeryComment on above:PHOTOS TAKENStart: 11-25-2024 End: 61-38-2245Qhodxw outpatient new 45 nidhitatiana Sanchezfranklin NOGUEIRATACTICAL/MOBILE WATCH OFFICER Work Phone: Plastic SurgeryComment on above:Macromastia; Neck pain; Intertrigo; Chronic bilateral low back pain without sciatica; Chronic pain of both shouldersStart: 11-25-2024 End: 65-90-8357rmbpnhjjhrVGPZG PATRICKFacility:[facility] HospitalStart: 03-22-2024 End: 48-09-6384Ibkxbc outpatient visit 15 Sara Harris TACTICAL/MOBILE WATCH OFFICER Work Phone: [facility] Comment on above:Acute pharyngitis, unspecified etiology (Primary Dx); Sore throatStart: 02-05-2024 End: 61-50-1588Bfvkgk outpatient visit 15 Wendie Llamas TACTICAL/MOBILE WATCH OFFICER Work Phone: [facility] Comment on above:Wrist injury, right, initial encounter (Primary Dx)Start: 12-17-2023 End: 41-80-5993zrvjvpcwfzTNXJDL H TIMMISNot AvailableStart: 08-26-2023 End: 90-66-3596Bqiakk outpatient new 20 minutesAníbalfran Arin Kamara TACTICAL/MOBILE WATCH OFFICER Work Phone: [facility] Comment on above:Eustachian tube dysfunction, bilateral (Primary Dx)Start: 05-07-2022 End: 77-87-2557nhseubymkmTO KALANI HOYFacility:K3Vxnsv: 00-70-1484Tnytfbygk for routine child health examination without abnormal findingsDR KALANI [facility] Hospitaltart: 11-12-2021 End: 88-72-8422sbccquaxrdXN KALANI HOYFacility:E6Gqcfz: 11-12-2021 End: 95-35-9802Ctntdbpbl for routine child health examination without abnormal findingsDR KALANI HOYFacility:H1 Procedures DateProcedureProcedure DetailPerforming ClinicianStart: 93-63-1978Jmhdurcle streptococcus group aCatheradrián Harris CNP Work Phone: Plan of Treatment DateCare ActivityDetailAuthorStart: 31-61-7714LAQ Vaccines (1 - 1-dose 75+ series)RSV Vaccines (1 - 1-dose 75+ series)[facility] 12-29-2053 Administration of herpes zoster vaccineZoster Vaccines (1 of 2)[facility]Start: 41-97-4201Bybmc microalbumin profileDTaP,Tdap,Td Vaccine (7 - Td or Tdap) [facility]: 71-59-3227BNFMR-19 Vaccine ( season)COVID-19 Vaccine ()[facility]Start: 76-29-3773Lwihosifa vaccination Influenza Vaccine (#1)[facility]: 97-61-0629Ixykpiydaf hospital visit by uiojjswsa78/17/2025 [facility] [address] [place] [id number] Philip Garg MD [address] [place], [place] [id number] Macromastia [N62], Neck pain [M54.2], Intertrigo [L30.4], Chronic bilateral low back pain without sciatica [M54.50, G89.29], Chronic pain of both shoulders [M25.511, G89.29, M25.512]Surgery CenterComment on above:Macromastia [N62], Neck pain [M54.2], Intertrigo [L30.4], Chronic bilateral low back pain without sciatica [M54.50, G89.29], Chronic pain of both shoulders [M25.511, G89.29, M25.512]Start: 72-60-9387Xwjlgmmus for malignant neoplasm of cervixUniversity Hospitals Cleveland Medical Centertart: 06-47-3728VPDZT-19 Vaccine ()COVID-19 Vaccine ( season)[facility]: 47-63-6714FCOSI-19 Vaccine ( season)COVID-19 Vaccine ( season)[facility]: 31-03-5834Pdjic-19 Vaccine ( season)Covid-19 Vaccine ( season)[facility]: 36-55-8905Abnjzfmsm vaccinationOhioHealthStart: 80-68-0580VDBVK-19 Vaccine ( season)COVID-19 Vaccine ( season)[facility]: 12-29-2022 Hepatitis B vaccinationHepatitis B Vaccines (1 of 3 - + 3-dose series) [facility]: 48-53-8742Evhzzsbuloh for diphtheria, pertussis, and tetanus Tetanus/Diphtheria/Pertussis (1 - Tdap)[facility]: 14-11-8632Wyogpoo ScreeningAnxiety ScreeningUniversity Hospitals Cleveland Medical Centertart: 44-36-7416Qcoxrrlguq Screening Depression ScreeningUniversity Hospitals Cleveland Medical Centertart: 50-57-3354HT (Gonorrhea) Screening (18-24)GC (Gonorrhea) Screening (18-24)[facility]: 12-29-2021 Hepatitis C screeningHepatitis C ScreeningOhioHealthStart: 95-61-0601FDS screeningHIV ScreeningUniversity Hospitals Cleveland Medical Centertart: 66-17-5503Kqhxmbuww for Chlamydia trachomatisChlamydia Screening (18-24)[facility]: 2019 Meningococcal B Vaccine (1 of 2 - Standard)Meningococcal B Vaccine (1 of 2 - Standard)[facility]: 22-14-5778WCB screeningHIV ScreeningOhioHealth Start: 21-74-4213Plxbhiyctfd for human papillomavirusHPV Vaccines (1 - 3-dose series)[facility]: 83-68-3834Amuz To Adult Transition Annual AssessmentPeds To Adult Transition Annual AssessmentUniversity Hospitals Cleveland Medical Centertart: 31-51-1459Cjvukpsdp vaccinationVaricella Vaccines (1 of 2 - 13+ 2-dose series)[facility]: 34-53-6750Yrfzoikpoq screening using PHQ-9 (Patient Health Questionnaire 9) scoreOhioHealthStart: 17-16-0317Gvgu To Adult Transition Initial DiscussionPeds To Adult Transition Initial DiscussionUniversity Hospitals Cleveland Medical Centertart: 23-08-1663Ybneutr and physical examination, annual for health maintenanceStonesprings [facility] Center VisitOhioHealth Start: 64-34-0323Cmphvru-mumps-rubella vaccinationMMR Vaccines (1 of 1 - Standard series)[facility]: 23-90-5874Dxkndlagl for Chlamydia trachomatis Chlamydia ScreeningOhioHealthStart: 67-13-8161Jbfzobu vaccinationTetanus: Every 10yrsOhioHealthReduction mammaplastyREDUCTION BREAST BILATERAL Macromastia Neck pain Intertrigo Chronic bilateral low back pain withoutsciatica Chronic pain of both [facility]Al[facility] PLAST[facility] A60XR Wrist - right 3 ViewsXR Wrist Right 3+ Views (Standard) Imaging KAR Wrist injury, right, initial encounter 02/05/2024 3:27 PM EDTOhioHealth Work Phone: Immunizations Immunization DateImmunizationNotesCare YioiiwgtOwiwlomk81-65-3908gnsudrjga virus vaccine, unspecified formulationSteven Armani HOFFMAN Work Phone: [facility] Payers DatePayer CategoryPayerPolicy [id number] Health InsuranceMMO SUPERMED PPO [id number] Care PPO (unspecified)[employer] PPO Member Subscriber Plan / Payer (Effective for All Dates) Name: Jaz ArmstrongZina Relation to Subscriber: Self Name: Jaz Armstrong Payer ID: Not on file Group ID: Not on file Type: Not on file Address: [place] [id number] UnknownMMO [employer] SUPERMED PPO [id number] Effective for all dates [phone] [place], [place] [id number] Social History DateTypeDetailFacilityStart: 34-96-7650Alhyhje smoking status NHISNever smoked tobaccoOhioHealthStart: 07-45-3729Qjzvhcc use and exposureSmokeless tobacco non-userOhioHealthStart: 08-26-2023 End: 17-62-9901Mfznzft intakeLifetime non-drinker (finding)[facility]: 59-35-8059Uwf Assigned At BirthNot on fileOhioHealthStart: 08-26-2023 End: 08-36-4187Okbtpm identityNot on fileOhioHealthStart: 08-26-2023 End: 81-31-5987Mhdjdqv of Social functionOhioHealthStart: 62-96-8029Qjqfmh identityIdentifies as female gender (finding)[facility]: 52-93-9462Qfldfm orientationHeterosexual (finding)[facility] smoking status NHISTobacco smoking consumption unknownC[facility] Hospital Work Phone: Start: 83-28-3064Prflqxrp Score (1-100), lower number is lower mlyx43IlpqentfbCherrington Hospital Clinical Notes 08-26-2023 to 03-23-2025 Note Date & QtbySbhaBflhkicf63-02-1563 Instructions* Patient Instructions* eKvin Herzog CNP - 03/23/2025 5:01 PM EST Antibiotics are not usually advised if you are normally in good health. Your immune system can usually clear this type of infection. Antibiotics do not kill viruses. Even if a germ (bacterium) is the cause, antibiotics usually do little to speed up recovery of an acute upper respiratory infection. Antibiotics may even make symptoms worse, as some people develop side-effects such as loose or watery stools (diarrhea), feeling sick (nausea) and rashes. Antibiotics may be prescribed if you become more unwell, or if you already have an ongoing (chronic) lung disease. Here is a list of things you can do to help your body heal more quickly: Get more rest. Rest helps your body to heal. Slowly start to do more each day. Avoid irritants in the air. Avoid chemicals, fumes, and dust. Do not smoke or be around others who smoke. Drink liquids as directed. Liquids help keep your air passages moist and help you cough up mucus. Use a humidifier or vaporizer. Use a cool mist humidifier to increase moisture in your home. This may help to make it easier to breathe. Reasons to return for an appointment or to go to Emergency Room if on the weekend or overnight: If high temperature (fever), wheezing or headaches become worse or severe. If you develop fast breathing, shortness of breath, or chest pains. If you cough up blood or if your phlegm (sputum) becomes dark or eric colored. If you become drowsy or confused. documented in this [id number] NotePatient Name: [facility] Location: [place] [address] [address] Date Of : Date Of Visit: 2005 03/23/2025 MRN# Provider: [id number] Kevin Herzog CNP Chief Complaint Patient presents with Otalgia Pt c/o left ear pain/fullness since today. Assessment & Plan 1. Upper respiratory tract infection, unspecified type 2. Congestion of paranasal sinus fluticasone propionate (FLONASE) 50 mcg/actuation nasal spray Return if symptoms worsen or fail to improve. Medical Decision Making The patient and I discussed bilateral ear fullness remaining from recent URI likely congestion in sinuses and ear canal behind ear. We discussed medication, side effects of medication and treatment plan with all questions answered. The patient verbalized understanding and agreed to the plan of care. Instructed to follow up if no improvement in 72 hours or if symptoms worsen or become severe to seek treatment sooner if severe go to the ER Additional Clinical Comments Discussed over the counter medications for symptomatic management and potential side effects of medications. Educated patient and/or guardian about signs and symptoms that would warrant immediate evaluation in the emergency room. Recommended that they should return to urgent care, make an appointment with their PCP, or go to the emergency room if symptoms persist or get acutely worse. Subjective 19 y.o. female presents with Otalgia (Pt c/o left ear pain/fullness since today.) Recent URI, symptoms have all resolved other than ear fullness and pain which has worsened today. Has not used any medications for this Otalgia There is pain in both ears. This is a new problem. The current episode started today. The problem occurs constantly. The problem has been unchanged. There has been no fever. Pertinent negatives include no abdominal pain, coughing, diarrhea, ear discharge, headaches, hearing loss, neck pain, rash, rhinorrhea, sore throat or vomiting. She has tried nothing for the symptoms. There is no history of a chronic ear infection, hearing loss or a tympanostomy tube. Review Of Systems Review of Systems Constitutional: Negative for chills, fatigue and fever. HENT: Positive for ear pain. Negative for congestion, ear discharge, hearing loss, rhinorrhea, sinus pain and sore throat. Respiratory: Negative for cough and shortness of breath. Cardiovascular: Negative for chest pain. Gastrointestinal: Negative for abdominal pain, diarrhea, nausea and vomiting. Musculoskeletal: Negative for neck pain. Skin: Negative for rash. Neurological: Negative for headaches. Medical History Past Medical History: Diagnosis Date Anxiety Depression History reviewed. No pertinent surgical history. Problem List[1] Social History Social History[2] Family History Family History Problem Relation Age of Onset No Known Problems Mother No Known Problems Father Objective Physical Exam BP 131/85 (BP Location: Left arm, Patient Position: Sitting, BP Cuff Size: Adult) Pulse 98 Temp 98.5 degrees F (36.9 degrees C) (Oral) Ht 5' 2 Wt 65.3 kg (144 lb) SpO2 100% BMI 26.34 kg/m Vision/Hearing Exam:No results found. Physical Exam Vitals and nursing note reviewed. Constitutional: General: She is not in acute distress. Appearance: Normal appearance. She is not toxic-appearing. HENT: Head: Normocephalic and atraumatic. Nose: Nose normal. Mouth/Throat: Lips: [place]. Mouth: Mucous membranes are moist. Eyes: General: Lids are normal. Vision grossly intact. Gaze aligned appropriately. Extraocular Movements: Extraocular movements intact. Conjunctiva/sclera: Conjunctivae normal. Pupils: Pupils are equal, round, and reactive to light. Neck: Thyroid: No thyroid mass or thyromegaly. Trachea: Trachea normal. Cardiovascular: Rate and Rhythm: Normal rate and regular rhythm. Pulses: Normal pulses. Heart sounds: Normal heart sounds, S1 normal and S2 normal. No murmur heard. No gallop. Pulmonary: Effort: Pulmonary effort is normal. No respiratory distress. Breath sounds: Normal breath sounds and air entry. No wheezing, rhonchi or rales. Musculoskeletal: General: No swelling. Normal range of motion. Cervical back: Normal range of motion and neck supple. No tenderness. Lymphadenopathy: Cervical: No cervical adenopathy. Skin: General: Skin is warm and dry. Capillary Refill: Capillary refill takes less than 2 seconds. Findings: No rash. Nails: There is no clubbing. Neurological: General: No focal deficit present. Mental Status: She is alert and oriented to person, place, and time. Cranial Nerves: Cranial nerves 2-12 are intact. Sensory: Sensation is intact. Psychiatric: Mood and Affect: Mood normal. Speech: Speech normal. Behavior: Behavior normal. Procedure Notes Procedures Results No results found for this or any previous visi (more content not included)... [facility] [id number] History of Present illness Narrative* Kevin Herzog CNP - 03/23/2025 4:53 PM EST Images from the original note were not included. Patient Name: [facility] Location: Jaz Armstrong [address] [place] [id number] Date Of : Date Of Visit: 2005 03/23/2025 MRN# Provider: [id number] Kevinrafiq Herzog CNP Chief Complaint Patient presents with Otalgia Pt c/o left ear pain/fullness since today. Assessment & Plan 1. Upper respiratory tract infection, unspecified type 2. Congestion of paranasal sinus fluticasone propionate (FLONASE) 50 mcg/actuation nasal spray Return if symptoms worsen or fail to improve. Medical Decision Making The patient and I discussed bilateral ear fullness remaining from recent URI likely congestion in sinuses and ear canal behind ear. We discussed medication, side effects of medication and treatment plan with all questions answered. The patient verbalized understanding and agreed to the plan of care. Instructed to follow up if no improvement in 72 hours or if symptoms worsen or become severe to seek treatment sooner if severe go to the ER Additional Clinical Comments Discussed over the counter medications for symptomatic management and potential side effects of medications. Educated patient and/or guardian about signs and symptoms that would warrant immediate evaluation in the emergency room. Recommended that they should return to urgent care, make an appointment with their PCP, or go to the emergency room if symptoms persist or get acutely worse. Subjective 19 y.o. female presents with Otalgia (Pt c/o left ear pain/fullness since today.) Recent URI, symptoms have all resolved other than ear fullness and pain which has worsened today. Has not used any medications for this Otalgia There is pain in both ears. This is a new problem. The current episode started today. The problem occurs constantly. The problem has been unchanged. There has been no fever. Pertinent negatives include no abdominal pain, coughing, diarrhea, ear discharge, headaches, hearing loss, neck pain, rash, rhinorrhea, sore throat or vomiting. She has tried nothing for the symptoms. There is no history of achronic ear infection, hearing loss or a tympanostomy tube. Review Of Systems Review of Systems Constitutional: Negative for chills, fatigue and fever. HENT: Positive for ear pain. Negative for congestion, ear discharge, hearing loss, rhinorrhea, sinus pain and sore throat. Respiratory: Negative for cough and shortness of breath. Cardiovascular: Negative for chest pain. Gastrointestinal: Negative for abdominal pain, diarrhea, nausea and vomiting. Musculoskeletal: Negative for neck pain. Skin: Negative for rash. Neurological: Negative for headaches. Medical History Past Medical History: Diagnosis Date Anxiety Depression History reviewed. No pertinent surgical history. Problem List[1] Social History Social History[2] Family History Family History Problem Relation Age of Onset No Known Problems Mother No Known Problems Father Objective Physical Exam BP 131/85 (BP Location: Left arm, Patient Position: Sitting, BP Cuff Size: Adult) Pulse 98 Temp98.5 F (36.9 C) (Oral) Ht 5' 2 Wt 65.3 kg (144 lb) SpO2 100% BMI 26.34 kg/m Vision/Hearing Exam:No results found. Physical Exam Vitals and nursing note reviewed. Constitutional: General: She is not in acute distress. Appearance: Normal appearance. She is not toxic-appearing. HENT: Head: Normocephalic and atraumatic. Nose: Nose normal. Mouth/Throat: Lips: [place]. Mouth: Mucous membranes are moist. Eyes: General: Lids are normal. Vision grossly intact. Gaze aligned appropriately. Extraocular Movements: Extraocular movements intact. Conjunctiva/sclera: Conjunctivae normal. Pupils: Pupils are equal, round, and reactive to light. Neck: Thyroid: No thyroid mass or thyromegaly. Trachea: Trachea normal. Cardiovascular: Rate and Rhythm: Normal rate and regular rhythm. Pulses: Normal pulses. Heart sounds: Normal heart sounds, S1 normal and S2 normal. No murmur heard. No gallop. Pulmonary: Effort: Pulmonary effort is normal. No respiratory distress. Breath sounds: Normal breath sounds and air entry. No wheezing, rhonchi or rales. Musculoskeletal: General: No swelling. Normal range of motion. Cervical back: Normal range of motion and neck supple. No tenderness. Lymphadenopathy: Cervical: No cervical adenopathy. Skin: General: Skin is warm and dry. Capillary Refill: Capillary refill takes less than 2 seconds. Findings: No rash. Nails: There is no clubbing. Neurological: General: No focal deficit present. Mental Status: She is alert and oriented to person, place, and time. Cranial Nerves: Cranial nerves 2-12 are intact. Sensory: Sensation is intact. Psychiatric: Mood and Affect: Mood normal. Speech: Speech normal. Behavior: Behavior normal. Procedure Notes Procedures Results No results found for this or any previous visit (from the past week). No orders to display Orders Placed This Visit No orders of the defined types were placed in this encounter. Medication List At End Of Visit Current Medications[3] Patient Instructions Antibiotics are not usually advised if you are normally in good health. Your immune system can usually clear this type of infection. Antibiotics do not kill viruses. Even if a germ (bacterium) is the cause, antibiotics usually do little to speed up recovery of an acute upper respiratory infection. Antibiotics may even make symptoms worse, as some people develop side-effects such as loose or watery stools (diarrhea), feeling sick (nausea) and rashes. Antibiotics may be prescribed if you become more unwell, or if you already have an ongoing (chronic) lung disease. Here is a list of things you can do to help your body heal more quickly: Get more rest. Rest helps your body to heal. Slowly start to do more each day. Avoid irritants in the air. Avoid chemicals, fumes, and dust. Do not smoke or be around others who smoke. Drink liquids as directed. Liquids help keep your air passages moist and help you cough up mucus. Use a humidifier or vaporizer. Use a cool mist humidifier to increase moisture in your home. This may help to make it easier to breathe. Reasons to return for an appointment or to go to Emergency Room if on the weekend or overnight: If high temperature (fever), wheezing or headaches become worse or severe. If you develop fast breathing, shortness of breath, or chest pains. If you cough up blood or if your phlegm (sputum) becomes dark or eric colored. If you become drowsy or confused. [1] There is no problem list on file for this patient. [2] Social History Tobacco Use Smoking status: Never Smokeless tobacco: Never Vaping Use Vaping status: Never Used Substance Use Topics Alcohol use: Never Drug use: Never [3] Current Outpatient Medications Medication Sig Dispense Refill desvenlafaxine succinate (PRISTIQ) 50 MG 24 hr tablet Take 1 (one) tablet (50 mg total) by mouth daily . desvenlafaxine succinate (PRISTIQ) 100 MG 24 hr tablet Take 1 (one) tablet (100 mg total) by mouth daily . (Patient not taking: Reported on 03/22/2024 .) fluticasone propionate (FLONASE) 50 mcg/actuation nasal spray Instill 2 (two) sprays into each nostril daily . (Patient not taking: Reported on 03/23/2025 .) 16 g 12 fluticasone propionate (FLONASE) 50 mcg/actuation nasal spray Instill 1 (one) spray into each nostril 2 (two) times a day . 18.2 mL 0 No current facility-administered medications for this visit. documented in this [id number] History of Present illness Narrative* Philip Garg MD - 01/20/2025 1:45 PM EDT Images from the original note were not included. BREAST REDUCTION EVALUATION CC: macromastia HPI: Jaz is a 19 year old female that presents today for breast reconstruction evaluation, she waspreviously seen by Tyler Smith CNP where 400 grams were estimated to be removed from each breastand this was approved. Surgery has not been scheduled at this time Pt c/o Macromastia Intertrigo Shoulder Pain Shoulder Grooves Neck Pain Lower back pain Others: Pt reports grooves from the band of the bra as well as bra straps Physical therapy or vehicle care specialist for pain and/or posturing maneuvers: number of months: no Home exercise: months tried: walking, stretching, 2 years NSAID use for more than 3 months: Type: ibuprofen, tylenol; Months tried: 2 years Skin ulceration: No Topical or oral antifungal agents: Type: deodorant, paper towels, shirt; Months tried: 2 years Participation in medically supervised weight loss program: No Weight reduction attempted: No previous attempt at weight loss Exercise: Yes, patient does walking, stretching reports no changes in breast symptoms Proper bra support and/or wide strap bras: yes, she has gotten measured for bras Prior breast surgeries: No PAIN: Yes 8 on a scale of 0 to 10. LOCATION: neck, shoulders, lowr back; CHARACTER: aching, dull, moderate, pressure, soreness, stiff, tight band, and cramping; DURATION: 5 months; FREQUENCY: occurs constantly. BRA SIZE: 36 G DESIRED SIZE: B, whatever is proportional WEIGHT REDUCTION ATTEMPTED: No previous attempt at weight loss EXERCISE: Yes, patient does stretching, walking, reports no changes in breast symptoms RECENT CHANGES REPORTED: Patient reports the following changes in breast symptoms: pt has been wanting a reduction for 2 years and she knows 2 friends who had breast reductions and they recommended the surgery OB HISTORY: PARA:No : Patient did not breastfeed PLAN FOR FUTURE PREGNANCIES: maybe HISTORY OF BREAST DISEASE: No patient history of previous breast disease PRIOR MAMMOGRAM: No FAMILY HISTORY OF BREAST CANCER: Yes: maternal great grandmother HISTORY OF BLEEDING/CLOTTING: no FAMILY HISTORY OF BLEEDING OR CLOTTING: no REVIEW OF SYSTEMS All negative except for: GENERAL: []weight loss []malaise []fevers HEENT: []frequent or significant headaches []changes in hearing []change in vision []nose bleeds []other nasal problems NECK: []lumps []goiter []pain and significant neck swelling RESPIRATORY: []cough []hemoptysis []wheezing []COPD []dyspnea []shortness of breath CARDIOVASCULAR: []chest pain []leg swelling []hypertension []CHF []palpitations GI: []nausea []vomiting []diarrhea MUSCULOSKELETAL: SEE HPI SKIN: [] skin lesions [x]rash [x]itching PSYCH: []sleep disturbance []mood disorder []recent psychosocial stressors HEMATOLOGY/LYMPHOLOGY: []prolonged bleeding []bruising easily []swollen nodes ENDOCRINE: []cold intolerance []heat intolerance []polyuria []polydipsia []goiter [] Diabetes No past medical history on file. No past surgical history on file. Current Outpatient Medications on File Prior to Visit Medication Sig desvenlafaxine succinate (PRISTIQ PO) Take 10 mg by mouth once daily. HYOSCYAMINE 0.125 MG/ML DROP Give 6 drops three times daily. No current facility-administered medications on file prior to visit. SMOKING HISTORY: Nonsmoker (Never Smoked) ETOH USE: None USE OF VITAMIN E, HERBS, ASA, NSAIDS: Yes MARITAL STATUS: Single EMPLOYMENT: Patient is employed occasional heavy lifting, pt is a college student as well EXAM: Height: 5'1 Wt: 152 There is no height or weight on file to calculate BSA. Back Exam: no scar; latissimus dorsi muscle function appears to be intact Abdominal Exam: Abdomen soft, non-tender. Bowel sounds normal. No masses, organomegaly Breast Exam: Asymmetry: Minimal Masses: no Axillary Lymphadenopathy: no Scars: no Note: measurements are in centimeters Note: measurements are in centimeters SN to NIPPLE: R: 26 L: 25.5 WIDTH: R: 16 L: 16 MIDLINE to NIPPLE: R: 11 L: 10.5 IMF to NIPPLE: R: 9.5 L: 10 Right breast is 10% larger than left breast PTOSIS: R: Grade III L: Grade III MEDIALLY DISPLACED NIPPLE: Mild ESTIMATED GRAMS OF TISSUE TO BE REMOVED: Left: 400 gms Right: 400 gms Assessment: Macromastia and back pain The patient is a good candidate for breast reduction with a simple technique. Photographs taken last office visit Planned procedure: bilateral breast reduction; I have discussed the procedure in detail with the patient and she agrees to the procedure understanding the roles and tasks of the personnel to be involved; the alternatives to the procedure to include liposuction or observation. She understands the risks to include but not be limited to infection, bleeding, pain, scar, need for re-operation, recurrence, asymmetry, loss of flap, loss of nipple, loss of nipple height, nipple sensation change, inability to breast feed, poor aesthetic results, skin depigmentation, skin necrosis and anesthetic/perioperative complications (DVT, PE, VA, and ). Informed consent signed today for bilateral breast reduction. Risks, benefits, alternatives and personnel discussed with patient who consents to proceed. Okay to schedule surgery, will send message to surgical oncologist Follow up at the time of surgery This visit lasted for more than 30 minutes and greater than 50% of the visit was involved in the discussion of the options for treatment. The patient was seen with Zoya Ulrich RN who performed the Review of Systems and Past/Family/Social History. I have reviewed these and agree with her findings. The History and Physical as taken by me are documented above and/or dictated below. The patient is seen and examined by Dr. Garg and the following reflects his/her service. Scribedby Zoya Ulrich RN I agree with the Chief Complaint, ROS, and Past Histories independently gathered by the clinical administrative support manager and the remaining scribed note accurately describes my personal service to the patient. Provider Attestation: I, Philip Garg MD, personally performed the services described in this documentation. All medical record entries made by the scribe were at my direction and in my presence. I have reviewed the chart and discharge instructions (if applicable) and agree that the record reflects my personal performance and is accurate and complete. Dr. Philip Garg MD January 20, 2025 2:47 PM documented in this encounterC[facility]25 NoteHNO ID: [id number] Author: PHILIP GARG MD Service: ? Author Type: Physician Type: Progress Notes Filed: 01/20/2025 14:47 Note Text: BREAST REDUCTION EVALUATION CC: macromastia HPI: Jaz is a 19 year old female that presents today for breast reconstruction evaluation, she was previously seen by Tyler Smith CNP where 400 grams were estimated to be removed from each breast and this was approved. Surgery has not been scheduled at this time Pt c/o Macromastia Intertrigo Shoulder Pain Shoulder Grooves Neck Pain Lower back pain Others: Pt reports grooves from the band of the bra as well as bra straps Physical therapy or vehicle care specialist for pain and/or posturing maneuvers: number of months: no Home exercise: months tried: walking, stretching, 2 years NSAID use for more than 3 months: Type: ibuprofen, tylenol; Months tried: 2 years Skin ulceration: No Topical or oral antifungal agents: Type: deodorant, paper towels, shirt; Months tried: 2 years Participation in medically supervised weight loss program: No Weight reduction attempted: No previous attempt at weight loss Exercise: Yes, patient does walking, stretching reports no changes in breast symptoms Proper bra support and/or wide strap bras: yes, she has gotten measured for bras Prior breast surgeries: No PAIN: Yes 8 on a scale of 0 to 10. LOCATION: neck, shoulders, lowr back; CHARACTER: aching, dull, moderate, pressure, soreness, stiff, tight band, and cramping; DURATION: 5 months; FREQUENCY: occurs constantly. BRA SIZE: 36 G DESIRED SIZE: B, whatever is proportional WEIGHT REDUCTION ATTEMPTED: No previous attempt at weight loss EXERCISE: Yes, patient does stretching, walking, reports no changes in breast symptoms RECENT CHANGES REPORTED: Patient reports the following changes in breast symptoms: pt has been wanting a reduction for 2 years and she knows 2 friends who had breast reductions and they recommended the surgery OB HISTORY: PARA:No : Patient did not breastfeed PLAN FOR FUTURE PREGNANCIES: maybe HISTORY OF BREAST DISEASE: No patient history of previous breast disease PRIOR MAMMOGRAM: No FAMILY HISTORY OF BREAST CANCER: Yes: maternal great grandmother HISTORY OF BLEEDING/CLOTTING: no FAMILY HISTORY OF BLEEDING OR CLOTTING: no REVIEW OF SYSTEMS All negative except for: GENERAL: []weight loss []malaise []fevers HEENT: []frequent or significant headaches []changes in hearing []change in vision []nose bleeds []other nasal problems NECK: []lumps []goiter []pain and significant neck swelling RESPIRATORY: []cough []hemoptysis []wheezing []COPD []dyspnea []shortness of breath CARDIOVASCULAR: []chest pain []leg swelling []hypertension []CHF []palpitations GI: []nausea []vomiting []diarrhea MUSCULOSKELETAL: SEE HPI SKIN: [] skin lesions [x]rash [x]itching PSYCH: []sleep disturbance []mood disorder []recent psychosocial stressors HEMATOLOGY/LYMPHOLOGY: []prolonged bleeding []bruising easily []swollen nodes ENDOCRINE: []cold intolerance []heat intolerance []polyuria []polydipsia []goiter [] Diabetes No past medical history on file. No past surgical history on file. Current Outpatient Medications on File Prior to Visit Medication Sig desvenlafaxine succinate (PRISTIQ PO) Take 10 mg by mouth once daily. HYOSCYAMINE 0.125 MG/ML DROP Give 6 drops three times daily. No current facility-administered medications on file prior to visit. SMOKING HISTORY: Nonsmoker (Never Smoked) ETOH USE: None USE OF VITAMIN E, HERBS, ASA, NSAIDS: Yes MARITAL STATUS: Single EMPLOYMENT: Patient is employed occasional heavy lifting, pt is a college student as well EXAM: Height: 5'1 Wt: 152 There is no height or weight on file to calculate BSA. Back Exam: no scar; latissimus dorsi muscle function appears to be intact Abdominal Exam: Abdomen soft, non-tender. Bowel sounds normal. No masses, organomegaly Breast Exam: Asymmetry: Minimal Masses: no Axillary Lymphadenopathy: no Scars: no Note: measurements are in centimeters Note: measurements are in centimeters SN to NIPPLE: R: 26 L: 25.5 WIDTH: R: 16 L: 16 MIDLINE to NIPPLE: R: 11 L: 10.5 IMF to NIPPLE: R: 9.5 L: 10 Right breast is 10% larger than left breast PTOSIS: R: Grade III L: Grade III MEDIALLY DISPLACED NIPPLE: Mild ESTIMATED GRAMS OF TISSUE TO BE REMOVED: Left: 400 gms Right: 400 gms Assessment: Macromastia and back pain The patient is a good candidate for breast reduction with a simple technique. Photographs taken last office visit Planned procedure: bilateral breast reduction; I have discussed the procedure in detail with the patient and she agrees to the procedure understanding the roles and tasks of the personnel to be involved; the alternatives to the procedure to include liposuction or observation. She understands the risks to include but not be limited to infection, bleeding, pain, s (more content not included)... [facility]07-10-2025 Instructions* Patient Instructions* Tyler Smith APRN.[facility] - 11/25/2024 12:11 PM EDT We discussed your concerns about large breasts and associated symptoms: - You reported experiencing neck, shoulder, and lower back pain, as well as grooves in your shoulders from bra straps, irritation, and sweating under your breasts. You also noted that the pain is moderate, continuous, and worsens with activity. - I ordered Nystatin powder to help with the irritation and itching under your breasts. Please apply this as needed to reduce symptoms. This prescription has been sent to your pharmacy. - Continue walking and stretching as you have been. If possible, losing a few pounds may help alleviate some of your symptoms and will also be considered by your insurance company during their review. We discussed the breast reduction process: - I completed measurements and a physical exam today, and I will submit the necessary documentationto your insurance company. It may take up to 6 weeks to hear back from them. If you do not hear from us within 6 weeks, please send a message through [facility] to follow up. - If insurance denies the procedure, they may require additional steps, such as physical therapy orchiropractic care, before reconsidering approval. We will inform you of their decision and next steps if this occurs. - If insurance approves the procedure, you will need to meet with the surgeon approximately 6 weeksbefore the surgery date. We will contact you to schedule this appointment. We discussed the breast reduction surgery: - This is an outpatient procedure that typically takes about 3 hours. You will go home the same day. - Post-operative care includes: - No lifting, pushing, or pulling anything over 10 pounds for 4 weeks. - Avoid laying on your sides for 4 weeks. - You may have incisions under your breasts, around the nipples, and down the front of the breasts.You will also likely have drains in place for about 1 week, which you will need to empty and maintain. - You will be prescribed pain medication, including a narcotic for the first week, and an antimicrobial cream to apply to your incisions twice daily. - No swimming for 4 weeks after surgery. - Risks of surgery include infection, bleeding, and, in rare cases, nipple loss. Following all post-operative instructions will help minimize these risks. - You can expect swelling and bruising after surgery. I will see you for a follow-up visit 7-10 days after the procedure, and additional follow-ups will occur during the first 4 weeks to monitor yourrecovery. Next steps: - Wait for the insurance decision, which may take up to 6 weeks. If approved, we will contact you to schedule a consultation with the surgeon. - Continue walking and stretching as you have been. If you experience worsening symptoms or have additional questions, please contact our office. Thank you for coming in today. We will keep you updated on the insurance process. documented in this encounterC[facility]07-10-2025 NoteHNO ID: [id number] Author: TIFFANY KNOX LPN Service: ? Author Type: LICENSED NURSE Type: Progress Notes Filed: 11/25/2024 10:47 Note Text: DATE OF PHOTOS: 11/25/2024 Body Part: Breasts Tiffany Knox LPN November 25, 2024 10:47 [facility]07-10-2025 History of Present illness Narrative* Tiffany Knox LPN - 11/25/2024 10:47 AM EDT DATE OF PHOTOS: 11/25/2024 Body Part: Breasts Tiffany Knox LPN November 25, 2024 10:47 AM documented in this encounterCher[facility]07-10-2025 History of Present illness Narrative* Tyler Smith APRN.TA[employer]ICAL/[employer]BI[employer]ATCH OFFICER - 11/25/2024 10:40 AM EDT BREAST REDUCTION EVALUATION CC: macromastia HPI: Pt c/o Macromastia Intertrigo Shoulder Pain Shoulder Grooves Neck Pain Lower back pain Others: Pt reports grooves from the band of the bra as well as bra straps Physical therapy or vehicle care specialist for pain and/or posturing maneuvers: number of months: no Home exercise: months tried: walking, stretching, 2 years NSAID use for more than 3 months: Type: ibuprofen, tylenol; Months tried: 2 years Skin ulceration: No Topical or oral antifungal agents: Type: deodorant, paper towels, shirt; Months tried: 2 years Participation in medically supervised weight loss program: No Weight reduction attempted: No previous attempt at weight loss Exercise: Yes, patient does walking, stretching reports no changes in breast symptoms Proper bra support and/or wide strap bras: yes, she has gotten measured for bras Prior breast surgeries: No PAIN: Yes 8 on a scale of 0 to 10. LOCATION: neck, shoulders, lowr back; CHARACTER: aching, dull, moderate, pressure, soreness, stiff, tight band, and cramping; DURATION: 5 months; FREQUENCY: occurs constantly. BRA SIZE: 36 G DESIRED SIZE: B, whatever is proportional WEIGHT REDUCTION ATTEMPTED: No previous attempt at weight loss EXERCISE: Yes, patient does stretching, walking, reports no changes in breast symptoms RECENT CHANGES REPORTED: Patient reports the following changes in breast symptoms: pt has been wanting a reduction for 2 years and she knows 2 friends who had breast reductions and they recommended the surgery OB HISTORY: PARA:No : Patient did not breastfeed PLAN FOR FUTURE PREGNANCIES: maybe HISTORY OF BREAST DISEASE: No patient history of previous breast disease PRIOR MAMMOGRAM: No FAMILY HISTORY OF BREAST CANCER: Yes: maternal great grandmother HISTORY OF BLEEDING/CLOTTING: no FAMILY HISTORY OF BLEEDING OR CLOTTING: no REVIEW OF SYSTEMS All negative except for: GENERAL: []weight loss []malaise []fevers HEENT: []frequent or significant headaches []changes in hearing []change in vision []nose bleeds []other nasal problems NECK: []lumps []goiter []pain and significant neck swelling RESPIRATORY: []cough []hemoptysis []wheezing []COPD []dyspnea []shortness of breath CARDIOVASCULAR: []chest pain []leg swelling []hypertension []CHF []palpitations GI: []nausea []vomiting []diarrhea MUSCULOSKELETAL: SEE HPI SKIN: [] skin lesions [x]rash [x]itching PSYCH: []sleep disturbance []mood disorder []recent psychosocial stressors HEMATOLOGY/LYMPHOLOGY: []prolonged bleeding []bruising easily []swollen nodes ENDOCRINE: []cold intolerance []heat intolerance []polyuria []polydipsia []goiter [] Diabetes No past medical history on file. No past surgical history on file. Current Outpatient Medications on File Prior to Visit Medication Sig HYOSCYAMINE 0.125 MG/ML DROP Give 6 drops three times daily. No current facility-administered medications on file prior to visit. SMOKING HISTORY: Nonsmoker (Never Smoked) ETOH USE: None USE OF VITAMIN E, HERBS, ASA, NSAIDS: Yes MARITAL STATUS: Single EMPLOYMENT: Patient is employed occasional heavy lifting, pt is a college student as well EXAM: Height: 5'1 Wt: 152 Body surface area is 1.72 meters squared. LMP 11/20/24 Back Exam: no scar; latissimus dorsi muscle function appears to be intact Abdominal Exam: Abdomen soft, non-tender. Bowel sounds normal. No masses, organomegaly Breast Exam: Asymmetry: Minimal Masses: no Axillary Lymphadenopathy: no Scars: no Note: measurements are in centimeters SN to NIPPLE: R: 27 L: 28 WIDTH: R: 15 L: 16 IMF to NIPPLE: R: 10 L: 10 PTOSIS: R: Grade III L: Grade III MEDIALLY DISPLACED NIPPLE: Mild ESTIMATED GRAMS OF TISSUE TO BE REMOVED: Left: 400 gms Right: 400 gms Assessment: Macromastia and back pain The patient is a good candidate for breast reduction with a simple technique. Photographs have been taken and will be sent to the insurance company as necessary. Plan: Planned procedure: bilateral breast reduction; I have discussed the procedure in detail with the patient and she agrees to the procedure understanding the roles and tasks of the personnel to be involved; the alternatives to the procedure to include liposuction or observation. She understands the risks to include but not be limited to infection, bleeding, pain, scar, need for re-operation, recurrence, asymmetry, loss of flap, loss of nipple, loss of nipple height, nipple sensation change, inability to breast feed, poor aesthetic results, skin depigmentation, skin necrosis and anesthetic/perioperative complications (DVT, PE, VA, and ). 1. Macromastia (N62) - Significant breast hypertrophy causing physical discomfort and pain. - Measurements taken: neck to nipple, width of each breast, nipple to underside of chest. - Discussed surgical reduction mammoplasty as a treatment option. - Explained insurance process; submission will be made today, with an expected response time of approximately 6 weeks. - Advised patient to maintain current exercise regimen (walking and stretching) and consider weightloss to potentially alleviate symptoms and improve insurance approval chances. - Discussed surgical procedure details, including potential incisions, nipple repositioning, and use of drains. - Educated on postoperative care: no lifting, pushing, or pulling over 10 pounds for 4 weeks, no side-lying, and no swimming for 4 weeks. - Discussed risks of surgery, including infection, bleeding, and potential loss of nipple. - Scheduled follow-up 7-10 days post-surgery for drain removal and wound assessment. - Patient understands and agrees with the treatment plan. 2. Neck pain (M54.2) 3. Chronic bilateral low back pain without sciatica (M54.50) 4. Chronic pain of both shoulders (M25.511) - Chronic pain attributed to macromastia, described as aching, dull, moderate, with pressure, soreness, stiffness, tight band, and cramping sensations. - Pain is constant and exacerbated by daily activities, with some relief when lying down. - No previous physical therapy or chiropractic treatment. - Currently managed with [id number] analgesics (Tylenol, ibuprofen). - Discussed potential improvement of pain symptoms post-breast reduction surgery. 5. Intertrigo (L30.4) - Chronic irritation and itching under the breasts due to moisture and friction. - No skin ulcerations or sores observed. - Prescribed nystatin powder to apply to affected areas to prevent fungal growth and alleviate itching. - Patient understands and agrees with the treatment plan. We discussed your concerns about large breasts and associated symptoms: - You reported experiencing neck, shoulder, and lower back pain, as well as grooves in your shoulders from bra straps, irritation, and sweating under your breasts. You also noted that the pain is moderate, continuous, and worsens with activity. - I ordered Nystatin powder to help with the irritation and itching under your breasts. Please apply this as needed to reduce symptoms. This prescription has been sent to your pharmacy. - Continue walking and stretching as you have been. If possible, losing a few pounds may help alleviate some of your symptoms and will also be considered by your insurance company during their review. We discussed the breast reduction process: - I completed measurements and a physical exam today, and I will submit the necessary documentationto your insurance company. It may take up to 6 weeks to hear back from them. If you do not hear from us within 6 weeks, please send a message through [facility] to follow up. - If insurance denies the procedure, they may require additional steps, such as physical therapy orchiropractic care, before reconsidering approval. We will inform you of their decision and next steps if this occurs. - If insurance approves the procedure, you will need to meet with the surgeon approximately 6 weeksbefore the surgery date. We will contact you to schedule this appointment. We discussed the breast reduction surgery: - This is an outpatient procedure that typically takes about 3 hours. You will go home the same day. - Post-operative care includes: - No lifting, pushing, or pulling anything over 10 pounds for 4 weeks. - Avoid laying on your sides for 4 weeks. - You may have incisions under your breasts, around the nipples, and down the front of the breasts.You will also likely have drains in place for about 1 week, which you will need to empty and maintain. - You will be prescribed pain medication, including a narcotic for the first week, and an antimicrobial cream to apply to your incisions twice daily. - No swimming for 4 weeks after surgery. - Risks of surgery include infection, bleeding, and, in rare cases, nipple loss. Following all post-operative instructions will help minimize these risks. - You can expect swelling and bruising after surgery. I will see you for a follow-up visit 7-10 days after the procedure, and additional follow-ups will occur during the first 4 weeks to monitor yourrecovery. Next steps: - Wait for the insurance decision, which may take up to 6 weeks. If approved, we will contact you to schedule a consultation with the surgeon. - Continue walking and stretching as you have been. If you experience worsening symptoms or have additional questions, please contact our office. Thank you for coming in today. We will keep you updated on the insurance process. Follow up with surgeon 6 weeks before scheduled surgery This visit lasted for more than 40 minutes and greater than 50% of the visit was involved in the discussion of the options for treatment. Outpatient consult at the request of Kalani Hilliard MD for my opinion regarding Macromastia Neck pain Intertrigo Chronic bilateral low back pain without sciatica Chronic pain of both shoulders. My final recommendations will be communicated back to the requesting physician by way of shared Medical Record and/or a letter. Tyler Smith APRN.[facility] November 25, 2024 documented in this encounterC[facility]07-10-2025 NoteHNO ID: [id number] Author: TYLER SMITH APRN.[facility] Service: ? Author Type: Nurse Practitioner Type: Progress Notes Filed: 11/25/2024 12:16 Note Text: BREAST REDUCTION EVALUATION CC: macromastia HPI: Pt c/o Macromastia Intertrigo Shoulder Pain Shoulder Grooves Neck Pain Lower back pain Others: Pt reports grooves from the band of the bra as well as bra straps Physical therapy or vehicle care specialist for pain and/or posturing maneuvers: number of months: no Home exercise: months tried: walking, stretching, 2 years NSAID use for more than 3 months: Type: ibuprofen, tylenol; Months tried: 2 years Skin ulceration: No Topical or oral antifungal agents: Type: deodorant, paper towels, shirt; Months tried: 2 years Participation in medically supervised weight loss program: No Weight reduction attempted: No previous attempt at weight loss Exercise: Yes, patient does walking, stretching reports no changes in breast symptoms Proper bra support and/or wide strap bras: yes, she has gotten measured for bras Prior breast surgeries: No PAIN: Yes 8 on a scale of 0 to 10. LOCATION: neck, shoulders, lowr back; CHARACTER: aching, dull, moderate, pressure, soreness, stiff, tight band, and cramping; DURATION: 5 months; FREQUENCY: occurs constantly. BRA SIZE: 36 G DESIRED SIZE: B, whatever is proportional WEIGHT REDUCTION ATTEMPTED: No previous attempt at weight loss EXERCISE: Yes, patient does stretching, walking, reports no changes in breast symptoms RECENT CHANGES REPORTED: Patient reports the following changes in breast symptoms: pt has been wanting a reduction for 2 years and she knows 2 friends who had breast reductions and they recommended the surgery OB HISTORY: PARA:No : Patient did not breastfeed PLAN FOR FUTURE PREGNANCIES: maybe HISTORY OF BREAST DISEASE: No patient history of previous breast disease PRIOR MAMMOGRAM: No FAMILY HISTORY OF BREAST CANCER: Yes: maternal great grandmother HISTORY OF BLEEDING/CLOTTING: no FAMILY HISTORY OF BLEEDING OR CLOTTING: no REVIEW OF SYSTEMS All negative except for: GENERAL: []weight loss []malaise []fevers HEENT: []frequent or significant headaches []changes in hearing []change in vision []nose bleeds []other nasal problems NECK: []lumps []goiter []pain and significant neck swelling RESPIRATORY: []cough []hemoptysis []wheezing []COPD []dyspnea []shortness of breath CARDIOVASCULAR: []chest pain []leg swelling []hypertension []CHF []palpitations GI: []nausea []vomiting []diarrhea MUSCULOSKELETAL: SEE HPI SKIN: [] skin lesions [x]rash [x]itching PSYCH: []sleep disturbance []mood disorder []recent psychosocial stressors HEMATOLOGY/LYMPHOLOGY: []prolonged bleeding []bruising easily []swollen nodes ENDOCRINE: []cold intolerance []heat intolerance []polyuria []polydipsia []goiter [] Diabetes No past medical history on file. No past surgical history on file. Current Outpatient Medications on File Prior to Visit Medication Sig HYOSCYAMINE 0.125 MG/ML DROP Give 6 drops three times daily. No current facility-administered medications on file prior to visit. SMOKING HISTORY: Nonsmoker (Never Smoked) ETOH USE: None USE OF VITAMIN E, HERBS, ASA, NSAIDS: Yes MARITAL STATUS: Single EMPLOYMENT: Patient is employed occasional heavy lifting, pt is a college student as well EXAM: Height: 5'1 Wt: 152 Body surface area is 1.72 meters squared. LMP 11/20/24 Back Exam: no scar; latissimus dorsi muscle function appears to be intact Abdominal Exam: Abdomen soft, non-tender. Bowel sounds normal. No masses, organomegaly Breast Exam: Asymmetry: Minimal Masses: no Axillary Lymphadenopathy: no Scars: no Note: measurements are in centimeters SN to NIPPLE: R: 27 L: 28 WIDTH: R: 15 L: 16 IMF to NIPPLE: R: 10 L: 10 PTOSIS: R: Grade III L: Grade III MEDIALLY DISPLACED NIPPLE: Mild ESTIMATED GRAMS OF TISSUE TO BE REMOVED: Left: 400 gms Right: 400 gms Assessment: Macromastia and back pain The patient is a good candidate for breast reduction with a simple technique. Photographs have been taken and will be sent to the insurance company as necessary. Plan: Planned procedure: bilateral breast reduction; I have discussed the procedure in detail with the patient and she agrees to the procedure understanding the roles and tasks of the personnel to be involved; the alternatives to the procedure to include liposuction or observation. She understands the risks to include but not be limited to infection, bleeding, pain, scar, need for re-operation, recurrence, asymmetry, loss of flap, loss of nipple, loss of nipple height, nipple sensation change, inability to breast feed, poor aesthetic results, skin depigmentation, skin necrosis and anesthetic/perioperative complications (DVT, PE, VA, and ). 1. Macromastia (N62) - Significant breast hypertrophy causing physical discomfort and pain. - Measu (more content not included)...[facility]11-04-[facility] History of Present illness Narrative* Sylvia Harris CNP - 03/22/2024 11:38 AM EST PATIENT NAME: Jaz Armstrong [address] [id number] : 2005 DATE OF VISIT: 03/22/2024 #: [id number] PROVIDER: Sylvia Harris CNP Chief Complaint Patient presents with Sore [...] include no abdominal pain, coughing, diarrhea, drooling, eardischarge, ear pain, headaches, hoarse voice, plugged ear [...] medications for this visit. documented in this [id number] History of Present illness Narrative* Vera Llamas CNP - 02/05/2024 3:36 PM EDT Subjective: Patient ID: Jaz Armstrong is a 18 y.o. female. Chief Complaint: [...] plan with no questions. documented in this [id number] Instructions* Patient Instructions* Vera Llamas CNP - 02/05/2024 3:30 PM EDT Images from the original note were not included. Preliminary xray interpretation shows no bone abnormalities. Likely sprain which can be sore for 4-6 weeks You [facility] hours If xray confirms broken [...] cloth between your skin and the ice packto avoid damaging your skin with the ice. Vash-gfr-rfukpis medication: Take an anti-inflammatory medication like ibuprofen (Motrin, Advil, and Aleve) or a pain reliever like acetaminophen (Tylenol). Continue bracing during your day for the next week Over the counter biofreeze can be used to help with discomfort documented in this [id number] History of Present illness Narrative* Sabina Kamara CNP - 08/26/2023 4:28 PM EDT PATIENT NAME: Jaz Armstrong [address] [id number] : 2005 DATE OF VISIT: 08/26/2023 #: [...] been gradually worsening. There has been no fever.The pain is at a severity of 0/10. The patient is experiencing no pain. Associated symptoms includehearing loss. Pertinent negatives include no abdominal pain, [...] medications for this visit. documented in this encounterOhioHealthEvaluation note* Diagnosis Eustachian tube dysfunction, bilateral- Primary [facility]* Diagnosis Wrist injury, right, initial encounter- Primary [facility]* Diagnosis Acute pharyngitis, unspecified etiology- Primary Sore throat Acute pharyngitis [facility]* Diagnosis Macromastia Hypertrophy of breast Neck pain Cervicalgia Intertrigo Other specified erythematous condition Chronic bilateral low back pain without sciatica Chronic pain of both shoulders Pain in joint, shoulder region [facility] Macromastia- Primary Hypertrophy of breast Neck pain Cervicalgia Intertrigo Other specified erythematous condition Chronic bilateral low back pain without sciatica Chronic pain of both shoulders Pain in joint, shoulder region [facility] Diagnosis Upper respiratory tract infection, unspecified type- Primary Congestion of paranasal sinus [facility]* Attachments The following attachments cannot be sent through Care Everywhere. * Eustachian Tube Problems (Albanian) documented in this encounterOhioHealthInstructions* Attachments The following attachments cannot be sent through Care Everywhere. * Sore Throat (Albanian) documented in this encounterInioHealth Summary Purpose Family History No Family History Records FoundNo Family History Records FoundNo Family History Records FoundNo Family History Records Found Advance Directives No Advanced Directives Records FoundNo Advanced Directives Records FoundNo Advanced Directives Records FoundNo Advanced Directives Records Found Additional Source Comments INFORMATION SOURCE (unrecogn ized section and content) DATE CREATED AUTHOR 05/15/2022 [facility] DATE CREATED AUTHOR AUTHOR'S ORGANIZ ATION 12/19/2023 [facility] DATE CREATED AUTHOR AUTHOR'S ORGANIZ ATION 01/22/2025 [facility] DATE CREATED AUTHOR AUTHOR'S ORGANIZ ATION 03/25/2025 [facility] Reason for Visit (unrecogniz ed section and content) ReasonCommentsEar FullnessPt c/o hard of hearing in her left ear since 08/23. Notes it feels like a lot of pressure.ReasonCommentsWrist InjuryPt complains of right wrist injury about 2 weeks ago-fell off her scooter and when she fell it twisted. Notes she twisted it again yesterday. Notes she has been wearing brace in between the falls andcurrently wearing it. Has used ice. Able to move it but with excess movement the pain comes back-describes pain as when you hit your funny bone ReasonCommentsSore ThroatSore throat and fatigue, started on Friday (Apr 07). Today is the worst day so far. Pt stated their roommate recently had strep. Has taken dayquil.ReasonCommentsPHOTOS TAKENReasonCommentsConsult ReductionReasonCommentsPost OpDiscuss and schedule reductionReasonComments OtalgiaPt c/o left ear pain/fullness since today. Care Teams (unrecognized sec tion and content) Team MemberRelationshipSpecialtyStart DateEnd Date System, Provider Not In [facility]08/26/23Te MemberRelationshipSpecialtyStmonticello DateEnd Date System, Provider Not In [facility]08/26/23Te MemberRelationsChapman Medical CenterpecialtyStmonticello DateEnd Date Kalani Hilliard MD [address] [place] [address] [facility]02/10/04[facility] MemberRelationsChapman Medical CenterpecialtyStmonticello DateEnd [facility] Kalani Hilliard MD [address] [place] [address] [facility]02/10/04[facility] MemberRelationsWashington [facility] HospitalialtyFair[place] DateEnd Date Kalani Hilliard MD [address] [place] [address] [facility]02/10/04[facility] MemberMayo Clinic HospitalialtyFairfax DateEnd [facility], Provider Not In [facility]08/26/23 Source Comments (unrecognize d section and content) In the event this informatio n is protected by the Federal Confidentiality of Alcohol and Drug Abuse Patient Records regulations: The Federal rules restrict any use of the information to criminally investigate or prosecute any alcohol or drug abuse patient.[facility] the event this information is protected by the Federal Confidentiality of Alcohol and Drug Abuse Patient Records regulations: The Federal rules restrict any use of the information to criminally investigate or prosecute any alcohol or drug abuse patient.[facility] HospitalIn the event this information is protected by the Federal Confidentiality of Alcohol and Drug Abuse Patient Records regulations: The Federal rules restrict any use of the information to criminally investigate or prosecute any alcohol or drug abuse patient.[facility] FOR RECORDS PERTAINING TO PATIENTS WHO ARE [...] BE BASED ON THE PRIMARY CLINICAL RECORDS. [facility]. provides no warranty or guarantee of the accuracy or completeness of information in this document.
[2025-04-28 14:25] LABS: Hematocrit 39.4 % (36.0-48.0); Hemoglobin 13.4 g/dL (12.0-16.0); Immature Granulocytes Abs Auto 0.02 10^3/uL (0.00-0.03); Immature Granulocytes Pct Auto 0.4 % (0.0-0.5); Lymphocytes Absolute Auto 1.5 10^3/uL (1.2-3.8); Mean Corpuscular HGB Conc 34.0 g/dL (29.9-35.2); Mean Corpuscular Hemoglobin 30.7 pg (26.7-34.0); Mean Corpuscular Volume 90.4 fL (81.0-99.0); Platelet Count 254 10^3/uL (150-450); Red Blood Count 4.36 10^6/uL (4.20-5.40); White Blood Count 5.4 10^3/uL (4.0-11.0)
[2025-04-28 15:15] LABS: Anion Gap 10.6; Blood Urea Nitrogen 10.0 mg/dL (7.0-18.0); Calcium 9.3 mg/dL (8.5-10.1); Carbon Dioxide 27.0 mmol/L (21.0-32.0); Chloride 104 mmol/L (98-107); Estimated GFR (African America >60 (>=60 mL/min/1.73m^2); Estimated GFR (Non-African Ame >60 (>=60 mL/min/1.73m^2); Glucose 87 mg/dL (74-106); Potassium 3.6 mmol/L (3.5-5.1); Sodium 138 mmol/L (136-145)
== END 2025-04-28 13:36 | disposition home or self-care (01) ==
LOC: LAB 13:37
PROVIDERS: PCP Family Medicine
DX: Z01.818 Encounter for other preprocedural examination (principal)
CPT/HCPCS: 36415; 80048; 85025